=== PATIENT | female | born 1990 | race Caucasian/White ===

== ENCOUNTER → 2018-03-06 10:19 | Outpatient (CLI) | payer OTHER, SELFPAY ==
[2018-03-06 11:43] LABS: Color, Urine Yellow (Yellow); Glucose, Dipstick Normal (Normal); Ketone-Dipstick Negative (Negative); Leukocyte Esterase-Dipstick 100 /ul (Negative); Nitrite-Dipstick Negative (Negative); Occult Blood-Urine Negative /ul (Negative); Protein-Dipstick Negative (Negative); Urine Bilirubin Dipstick Negative (Negative); Urine Clarity Clear (Clear); Urine Urobilinogen Normal (Normal)
[2018-03-06 11:46] LABS: Absolute Lymphocyte Count 1.37 X10^3/ul (0.83-4.51); Basophil# 0.02 X10^3/uL; Basophil% 0.3 % (0-1); Eosinophil# 0.07 X10^3/uL; Eosinophils% 0.9 % (0-5); Hemoglobin 13.3 g/dl (12.0-15.0); Lymphocyte # 1.37 X10^3/ul (4.0); Lymphocyte % 17.4 % (19-41); Mean Corp Hgb Conc 34.1 g/gl (32-36); Mean Corpuscular Hgb 31.1 pg (27.0-32.0); Mean Corpuscular Volume 91.1 fL (81-99); Mean Platelet Vol. 9.6 fl (6.2-12.0); Monocyte# 0.45 X10^3/uL; Monocyte% 5.7 % (0-10); Neutrophil # 5.97 X10^3/uL (2.7-7.7); Neutrophil % 75.6 % (47-70); Platelet Count 266 K/mm3 (150-450); RBC Distribution Width CV 12.5 % (11.6-14.6); RBC Distribution Width SD 40.9 fl (35.1-43.9); Red Blood Count 4.28 M/mm3 (4.2-5.4); White Blood Count 7.9 K/mm3 (4.4-11.0)
[2018-03-06 11:48] LABS: POSITIVE COUNT NO; POSITIVE DIFFERENTIAL NO; POSITIVE MORPHOLOGY NO
[2018-03-06 12:03] LABS: Amphetamine Urine VISTA NEGATIVE (<1000 ng/mL); Barbiturate Urine VISTA NEGATIVE (< 200 ng/mL); Benzodiazepine Urine VISTA NEGATIVE (< 200 ng/mL); Cocaine Urine VISTA NEGATIVE (< 300 ng/mL); Ecstacy Urine VISTA NEGATIVE (< 500 ng/mL); Methadone Urine VISTA NEGATIVE (< 300 ng/mL); PCP Urine VISTA NEGATIVE (< 25 ng/mL); THC Urine VISTA NEGATIVE (< 50 ng/mL); Vista UDS pH Range 6
[2018-03-06 12:39] LABS: HIV - WCH Non-Reactive (Nonreactive); Rubella IgG 48.2 IU/mL; Vitamin D,25 Hydroxy 27.7 ng/mL (29.95-100.01)
[2018-03-06 14:52] LABS: Chlamydia Trachomatis by PCR Negative (Negative); Neisserai gonorrhoeae by PCR Negative (Negative); Probe Check PASS; Sample Adequacy Control PASS; Specimen Processing Control PASS
[2018-03-07 13:40] LABS: HEPATITIS B SURFACE AG Negative (Negative); Hep C Antibodies <0.1 s/co ratio (0.0-0.9)
[2018-03-13 02:33] LABS: Prenatal RPR NONREACTIVE (NONREACTIVE)
== END ==
PROVIDERS: Visit Provider Obstetrics & Gynecology
DX: Z32.01 Encounter for pregnancy test, result positive (principal)
CPT/HCPCS: 36415; 80307; 81002; 82306; 83036; 84443; 85025; 86703; 86762; 86803; 87340; 87491; 87591

== ENCOUNTER 2018-03-08 19:56 | Emergency (ER) | payer OTHER, SELFPAY ==
[2018-03-08 19:58] VITALS: BP 93/69; PULSE 109; RESP 22; TEMP 36.4; O2SAT 98; BMI 28.1
[2018-03-08] MEDS: 0.9% Normal Saline 1,000 ML 1000 ML IV (20:35)
[2018-03-08] MEDS: proMETHazine 25 MG/ML Syringe 12.5 MG IV (20:35)
[2018-03-08 20:46] LABS: Red Blood Cells-Urine 0 SEEN /hpf (0-5)
[2018-03-08 20:55] LABS: Absolute Lymphocyte Count 0.52 X10^3/ul (0.83-4.51); Absolute Neutrophil Count 13.7 X10^3/uL (2.0-7.7); Basophil# 0.01 X10^3/uL; Basophil% 0.1 % (0-1); Eosinophil# 0.01 X10^3/uL; Eosinophils% 0.1 % (0-5); Hematocrit 41.5 % (37-47); Hemoglobin 13.9 g/dl (12.0-15.0); Lymphocyte # 0.52 X10^3/ul (4.0); Lymphocyte % 3.6 % (19-41); Mean Corp Hgb Conc 33.5 g/gl (32-36); Mean Corpuscular Hgb 30.3 pg (27.0-32.0); Mean Corpuscular Volume 90.4 fL (81-99); Mean Platelet Vol. 9.5 fl (6.2-12.0); Monocyte# 0.37 X10^3/uL; Monocyte% 2.5 % (0-10); Neutrophil # 13.67 X10^3/uL (2.7-7.7); Neutrophil % 93.5 % (47-70); Platelet Count 230 K/mm3 (150-450); RBC Distribution Width CV 12.7 % (11.6-14.6); RBC Distribution Width SD 41.2 fl (35.1-43.9); Red Blood Count 4.59 M/mm3 (4.2-5.4); White Blood Count 14.6 K/mm3 (4.4-11.0)
[2018-03-08 20:58] LABS: Color, Urine Yellow (Yellow); Glucose, Dipstick Normal (Normal); Leukocyte Esterase-Dipstick 100 /ul (Negative); Nitrite-Dipstick Negative (Negative); Occult Blood-Urine 10 /ul (Negative); Protein-Dipstick 30 mg/dl (Negative); Specific Gravity, Urine 1.025 (1.002-1.030); Urine Bilirubin Dipstick 1 mg/dL (Negative); Urine Clarity Cloudy (Clear); Urine Urobilinogen 1 mg/dl (Normal)
[2018-03-08 20:59] LABS: Ketone-Dipstick 150 mg/dl (Negative)
[2018-03-08 21:01] LABS: Differential Indicated SCAN CRITERIA MET; POSITIVE COUNT NO; POSITIVE DIFFERENTIAL YES; POSITIVE MORPHOLOGY NO
[2018-03-08 21:05] LABS: Anion Gap 8 (5-15); BUN 15 mg/dL (7-18); BUN/Creat Ratio 22.6 RATIO (10-20); Calcium,Total 9.1 mg/dL (8.5-10.1); Chloride 103 mmol/L (98-107); Creatinine, Serum 0.66 mg/dL (0.55-1.02); EST Glomerular Filtration Rate 114 mL/min (>60); Est Glom Filt Rate - Afr Amer 138 mL/min (>60); Estimated Creatinine Clearance 116.23 ml/min; Glucose 101 mg/dL (74-106); Sodium Level 136 mmol/L (136-145)
[2018-03-08 21:14] LABS: Squamous Epithelial Cells - UA 0-5 SEEN /hpf (5-10); White Blood Cells 0-5 SEEN /hpf (0-5)
[2018-03-08 21:15] LABS: Bacteria 1+ /hpf (None Seen); Mucous, Urine 2+ /hpf (<or=2+)
[2018-03-08 21:20] LABS: Differential Comment SCANNED
[2018-03-08] MEDS: 0.9% Normal Saline 1,000 ML 150 ML IV (21:24)
[2018-03-08 21:25] VITALS: BP 91/46; PULSE 77; RESP 16; O2SAT 100
[2018-03-08] MEDS: Ondansetron 4 MG/2 ML Vial IV ×2 (21:40→23:56)
--- NOTE | 2018-03-08 22:50 | ED.DCSUM_ITS ---
- ER Visit Summary Date of Service: 03/08/18 Chief Complaint: Nausea and vomiting History of Present Illness: The patient is a 27 F who is currently 6 weeks . Patient has had nausea, vomiting, diarrhea since late last night. Her son is ill with stomach flu as well. Patient denies fever. She denies any cramping or bleeding. Physical Examination: Blood pressure is 93/69, temperature 97.6, heart rate 109 , respiratory rate 22, pulse ox 98% on room air. Patient sitting upright in bed no acute distress. She is nontoxic appearing. Head neck examination is unremarkable. Heart is slightly tachycardic and regular. Lung sounds are clear. Abdomen is soft and nontender. Test Results: CBC was a white count of 14.6 with 93% neutrophils. Chemistry studies are normal. Urinalysis is significant for 150 ketones. Emergency Department Course and Treatment: Patient was initially given Phenergan and a liter of IV fluids. Nursing staff states that her nausea was starting to return. Blood pressure was still in the 90s systolic. She is given additional 500 cc of fluids and Zofran. Repeat evaluation at this time she is sleeping comfortably. Patient was given ice chips and was able to keep this down. She apparently was given mandrin oranges and after eating this felt worse epigastric pain and nausea. She was given a dose of Pepcid and Zofran. At this time she is sleeping comfortably. She will be discharged to home. She will be given a home pack of Phenergan with a prescription for Phenergan. She is to follow-up with her [employer], Dr. Kolton Frederick. Treatment Plan: [] Disposition: Discharge Impression: 1. Gastroenteritis 2. First trimester This note was generated with [employer] software. It may contain incorrect words, spelling, and punctuation that were not noted in review of the chart prior to signing ED Disposition - Plan for ED Patient: Disposition: Home or Assisted Living Chief Complaint: Nausea/Vomiting Instructions: ED Nausea Vomiting Prescriptions: proMETHazine tablet [Phenergan] 0.5 - 1 tab PO Q6H PRN PRN #10 tablet PRN Reason: Nausea Referrals: Teresa Tuttle MD [Primary Care Provider] - Karma Rocha MD [STAFF PHYSICIAN] -
--- NOTE | 2018-03-08 23:06 | ED.DEP ---
ED Disposition - Plan for ED Patient: Disposition: Home or Assisted Living Chief Complaint: Nausea/Vomiting Instructions: ED Nausea Vomiting Prescriptions: proMETHazine tablet [Phenergan] 0.5 - 1 tab PO Q6H PRN PRN #10 tablet PRN Reason: Nausea Referrals: Teresa Tuttle MD [Primary Care Provider] - Karma Rocha MD [STAFF PHYSICIAN] -
[2018-03-09] MEDS: proMETHazine 25 MG Tablet PO (00:49)
[2018-03-09 00:52] VITALS: BP 86/68; PULSE 67; RESP 14; O2SAT 95
== END 2018-03-09 00:52 | disposition home or self-care (01) ==
PROVIDERS: Emergency Provider Emergency Medicine; Family Provider Family Medicine; PCP Family Medicine
DX: O98.511 Other viral diseases complicating pregnancy, first trimester (principal); K52.9 Noninfective gastroenteritis and colitis, unspecified; Z3A.01 Less than 8 weeks gestation of pregnancy
CPT/HCPCS: 80048; 81001; 85025; 96361; 96365; 96374; 96375; 96376; 99283; J7030; J7040; A4216; J2405; J3490

== ENCOUNTER → 2018-08-05 13:08 | Outpatient (CLI) | payer OTHER, SELFPAY ==
[2018-08-05 15:43] LABS: Hematocrit 31.3 % (37-47); Hemoglobin 10.2 g/dl (12.0-15.0); Mean Corp Hgb Conc 32.6 g/gl (32-36); Mean Corpuscular Hgb 30.2 pg (27.0-32.0); Mean Corpuscular Volume 92.6 fL (81-99); Platelet Count 250 K/mm3 (150-450); RBC Distribution Width SD 45.7 fl (35.1-43.9); Red Blood Count 3.38 M/mm3 (4.2-5.4); White Blood Count 15.9 K/mm3 (4.4-11.0)
[2018-08-05 15:57] LABS: Scan Indicated on CBC? Y/N NO
[2018-08-05 16:13] LABS: Glucose Challenge Gest 1H 50g 153 mg/dL (70-140)
[2018-08-06 15:13] LABS: Ferritin 4 ng/mL (8-252); Iron 43 ug/dL (50-170); Iron Binding Capacity,Total 511 ug/dL (250-450); PERCENT IRON SATURATION 8.4 % (15.0-55.0)
== END ==
PROVIDERS: Visit Provider Obstetrics & Gynecology
DX: Z34.83 Encounter for supervision of other normal pregnancy, third trimester (principal)
CPT/HCPCS: 36415; 82728; 82950; 83540; 83550; 85027

== ENCOUNTER → 2018-08-12 09:45 | Outpatient (CLI) | payer OTHER, SELFPAY ==
[2018-08-12 11:05] LABS: Glucose GTT-Gestation. Fasting 78 mg/dL (<105)
[2018-08-12 11:29] LABS: Glucose GTT-Gestational 1 Hr 158 mg/dL (<190)
[2018-08-12 12:32] LABS: Glucose GTT-Gestational 2 Hr 177 mg/dL (<165)
[2018-08-12 13:46] LABS: Glucose GTT-Gestational 3 Hr 105 L (<145)
== END ==
PROVIDERS: Family Provider Family Medicine; PCP Family Medicine; Visit Provider Obstetrics & Gynecology
DX: Z34.83 Encounter for supervision of other normal pregnancy, third trimester (principal); O24.912 Unspecified diabetes mellitus in pregnancy, second trimester; Z3A.00 Weeks of gestation of pregnancy not specified
CPT/HCPCS: 36415; 82951; 82952

== ENCOUNTER 2018-08-14 14:03 | Outpatient (CLI) | payer OTHER, SELFPAY ==
[2018-08-14 16:19] VITALS: BMI 32.3
--- NOTE | 2018-08-14 18:15 | OB.TRI.NOTE ---
History of Present Illness Date of Service: 08/14/18 Was patient seen by the physician?: Yes Reason For Visit: spotting Date of Service: 08/14/18 Final ESTUARDO: 10/30/18 Final ESTUARDO Source: US <20 weeks Gestational age: 29 Weeks and 0 Days History of Present Illness: 27yo with dichorionic diamnionic twin gestation presents with c/o vaginal bleeding. She called office earlier today and was advised to go to L&D. Two days ago she had a near fall after sliding down muddy slope while walking. She denies any fall or trauma and was able to regain her balance and remain upright, but she feels she might have pulled a muscle. She was seen in the office the following day for US which was reassuring. Today she noted spotting when wiping after toileting, it was pink to red in color and the size of a pea. Denies contractions, leaking of fluid, vaginal bleeding, constipation, diarrhea, recent intercourse, vaginal itching, burning or abnormal discharge. Fetuses are active. Allergies Penicillins Allergy (Verified 08/14/18 16:21) Rash Physical Exam Vitals: avss General: Alert, Oriented x3, Cooperative, No apparent distress HEENT: Atraumatic, Normocephalic Lungs: Normal air movement Abdomen: Bowel Sounds Present, Non Tender, Non-Distended, Gravid Neurological: Neuro grossly intact, Motor Exam 5/5 strength throughout CARTON MAKER: Normal external genitalia Cervix Dilation (cm): 0 Station: -3 Effacement (%): 0 NST - FHR Rate Baby A Baseline: 140 Variability:: Moderate Accelerations:: 15 x 15 Decelerations:: None NST Reactive:: Yes FHR Category:: Category I Uterine Activity:: 0-3/10 min, irritability - FHR Rate Baby B Baseline: 140 Variability:: Moderate Accelerations:: 15 x 15 Decelerations:: None NST Reactive:: Yes FHR Category:: Category I Impression/Plan 27yo with di-di twin gestation and spotting complicating , third trimester -No bleeding or abnormalities noted on speculum exam -Cervix closed and contractions irregular - no labor -Will d/c patient home -Pt reassured -Si/sx labor, ROM reviewed
--- NOTE | 2018-08-14 18:19 | OB.TRI.HP_ITS ---
History of Present Illness Date of Service: 08/14/18 Was patient seen by the physician?: Yes Reason For Visit: spotting Date of Service: 08/14/18 Final ESTUARDO: 10/30/18 Final ESTUARDO Source: US <20 weeks Gestational age: 29 Weeks and 0 Days History of Present Illness: 27yo with dichorionic diamnionic twin gestation presents with c/o vaginal bleeding. She called office earlier today and was advised to go to L&D. Two days ago she had a near fall after sliding down muddy slope while walking. She denies any fall or trauma and was able to regain her balance and remain upright, but she feels she might have pulled a muscle. She was seen in the office the following day for US which was reassuring. Today she noted spotting when wiping after toileting, it was pink to red in color and the size of a pea. Denies contractions, leaking of fluid, vaginal bleeding, constipation, diarrhea, recent intercourse, vaginal itching, burning or abnormal discharge. Fetuses are active . Allergies Penicillins Allergy (Verified 08/14/18 16:21) Rash Physical Exam Vitals: avss General: Alert, Oriented x3, Cooperative, No apparent distress HEENT: Atraumatic, Normocephalic Lungs: Normal air movement Abdomen: Bowel Sounds Present, Non Tender, Non-Distended, Gravid Neurological: Neuro grossly intact, Motor Exam 5/5 strength throughout COMPUTED TOMOGRAPHY TECHNICIAN: Normal external genitalia Cervix Dilation (cm): 0 Station: -3 Effacement (%): 0 NST - FHR Rate Baby A Baseline: 140 Variability:: Moderate Accelerations:: 15 x 15 Decelerations:: None NST Reactive:: Yes FHR Category:: Category I Uterine Activity:: 0-3/10 min, irritability - FHR Rate Baby B Baseline: 140 Variability:: Moderate Accelerations:: 15 x 15 Decelerations:: None NST Reactive:: Yes FHR Category:: Category I Impression/Plan 27yo with di-di twin gestation and spotting complicating , third trimester -No bleeding or abnormalities noted on speculum exam -Cervix closed and contractions irregular - no labor -Will d/c patient home -Pt reassured -Si/sx labor, ROM reviewed
== END 2018-08-14 18:03 | disposition home or self-care (01) ==
LOC: WPOUT 14:05 → WP 14:05
PROVIDERS: Family Provider Family Medicine; PCP Family Medicine; Referring Provider Obstetrics & Gynecology; Visit Provider Obstetrics & Gynecology
DX: O30.043 Twin pregnancy, dichorionic/diamniotic, third trimester (principal); O26.853 Spotting complicating pregnancy, third trimester; Z3A.29 29 weeks gestation of pregnancy
CPT/HCPCS: 59025; 59050; 99218; G0378

== ENCOUNTER 2018-09-01 07:55 | Outpatient (CLI) | payer OTHER, SELFPAY ==
[2018-09-01 08:09] VITALS: BMI 32.7
--- NOTE | 2018-09-02 08:02 | OB.TRI.NOTE ---
History of Present Illness Date of Service: 09/01/18 Was patient seen by the physician?: No Reason For Visit: NST Date of Service: 09/01/18 Final ESTUARDO: 10/30/18 Final ESTUARDO Source: US <20 weeks Gestational age: 31 Weeks and 4 Days History of Present Illness: 27 yo female at 31 4/7 wk with twin IUP for scheduled twin NST No complaints reported by nurse. Allergies Penicillins Allergy (Verified 08/14/18 16:21) Rash NST - FHR Rate Baby A Baseline: 140s avg variability accels to 165-170 Variability:: Moderate Accelerations:: 15 x 15 Decelerations:: Early - to 100 less than 10 sec. NST Reactive:: Yes, Appropriate for gestational age FHR Category:: Category I Uterine Activity:: no regular UCs. Some irritability - FHR Rate Baby B Baseline: 140-150 with accels to 170s Variability:: Moderate Accelerations:: None Decelerations:: Early - to 130 less than 10 - 20 sec NST Reactive:: Yes, Appropriate for gestational age FHR Category:: Category I Uterine Activity:: no regular UCs Impression/Plan 31 4/7 wk twin IUP Reactive NST Home Keep scheduled appts in ofc, serial sonos NSTs until delivery
--- NOTE | 2018-09-02 08:14 | OB.TRI.HP_ITS ---
History of Present Illness Date of Service: 09/01/18 Was patient seen by the physician?: Yes Reason For Visit: NST Date of Service: 09/01/18 Final ESTUARDO: 10/30/18 Final ESTUARDO Source: US <20 weeks Gestational age: 31 Weeks and 4 Days History of Present Illness: 27 yo female with twin IUP s/p fall at home onto buttocks. Hit L thigh on edge of furniture with has an abrasion and bruise. states did the splits and is painful. Very concerned about babies and possible labor. Feeling some pain. Did NOT hit her abdomen. Both babies are BREECH and plans primary C/S delivery at 38 wks. Allergies Penicillins Allergy (Verified 08/14/18 16:21) Rash Review of Systems Gastrointestinal: Reports: Abdominal Pain - concerned about contractions. Gynecological: Denies: Vaginal bleeding Physical Exam General: Alert, Oriented x3, Cooperative, No apparent distress HEENT: Atraumatic, EOMI Abdomen: Soft, Non Tender, Gravid Neurological: Cranial nerves II-XII grossly intact SURVEY RESEARCH PROFESSOR: Normal external genitalia - no blood noted. Cervix Dilation (cm): 0 Station: -3 Effacement (%): 0 NST - FHR Rate Baby A Variability:: Moderate Accelerations:: 15 x 15 Decelerations:: Variable NST Reactive:: Yes, Appropriate for gestational age FHR Category:: Category I Uterine Activity:: rare UC. Uterine irritability noted. - FHR Rate Baby B Variability:: Moderate Accelerations:: 15 x 15 Decelerations:: Variable NST Reactive:: Yes, Appropriate for gestational age FHR Category:: Category I Uterine Activity:: As above twin A report. Impression/Plan 31 4/7 wk twin IUP Br-Br presentation. ELPIDIO wnl x two and concordant growth with last sono (within the week) No SROM No Vaginal bleeding S/P fall onto buttocks , no abdominal trauma NST reactive both Uterine irritability. IV hydration and single dose of procardia 10 mg po given for CC of cramping. Tylenol 1000 mg PO x one given FALSE LABOR, cramping s/p fall and no abdominal trauma. Home to rest after monitoring. Keep next appts for NST, ofc visit and sono as scheduled. Return if inc s/sx of labor. Advised Tylenol, rest, warm bath/shower as musculoskeletal pain may worsen after fall. (similar to whiplash)
== END 2018-09-01 08:35 | disposition home or self-care (01) ==
LOC: WPOUT 08:02 → WP 08:03
PROVIDERS: Family Provider Family Medicine; PCP Family Medicine; Referring Provider Obstetrics & Gynecology; Visit Provider Obstetrics & Gynecology
DX: O47.03 False labor before 37 completed weeks of gestation, third trimester (principal); O32.1XX0 Maternal care for breech presentation, not applicable or unspecified; O30.003 Twin pregnancy, unspecified number of placenta and unspecified number of amniotic sacs, third trimester; O76 Abnormality in fetal heart rate and rhythm complicating labor and delivery; O9A.213 Injury, poisoning and certain other consequences of external causes complicating pregnancy, third trimester; Z3A.31 31 weeks gestation of pregnancy; S70.312A Abrasion, left thigh, initial encounter; W19.XXXA Unspecified fall, initial encounter; Y93.9 Activity, unspecified; Y92.009 Unspecified place in unspecified non-institutional (private) residence as the place of occurrence of the external cause
CPT/HCPCS: 59025; 59050; 99218; G0378

== ENCOUNTER 2018-09-04 07:50 | Outpatient (CLI) | payer OTHER, SELFPAY ==
[2018-09-04 08:06] VITALS: BMI 32.8
--- NOTE | 2018-09-04 15:58 | OB.TRI.NOTE ---
History of Present Illness Was patient seen by the physician?: No Reason For Visit: NST Date of Service: 09/04/18 Final ESTUARDO: 10/28/18 Final ESTUARDO Source: US <20 weeks Gestational age: 32 Weeks and 2 Days History of Present Illness: 32+ week intrauterine presents for routine nonstress test for twins. Allergies Penicillins Allergy (Verified 09/04/18 08:08) Rash NST - FHR Rate Baby A NST Reactive:: Yes FHR Category:: Category I - FHR Rate Baby B NST Reactive:: Yes FHR Category:: Category I Impression/Plan 32+ week intrauterine with twin gestation for routine nonstress testing. Reactive x2. Continue twice weekly nonstress testing.
== END 2018-09-04 09:35 | disposition home or self-care (01) ==
LOC: WPOUT 07:56 → WP 07:58
PROVIDERS: Family Provider Family Medicine; PCP Family Medicine; Referring Provider Obstetrics & Gynecology; Visit Provider Obstetrics & Gynecology
DX: O30.003 Twin pregnancy, unspecified number of placenta and unspecified number of amniotic sacs, third trimester (principal); Z3A.32 32 weeks gestation of pregnancy
CPT/HCPCS: 59025; 59050; 99218; G0378

== ENCOUNTER 2018-09-07 16:40 | Outpatient (CLI) | payer OTHER, SELFPAY ==
[2018-09-07 17:55] VITALS: BMI 33.0
[2018-09-07] MEDS: Lactated Ringers 500 ML 999 ML IV (18:57)
[2018-09-07] MEDS: Betamethasone/Betamethasone 30 MG/5 ML Vial 12 MG IM (18:58)
[2018-09-07 19:04] LABS: Fetal Fibronectin Negative
--- NOTE | 2018-09-07 21:54 | OB.TRI.NOTE ---
History of Present Illness Was patient seen by the physician?: Yes Reason For Visit: NST Date of Service: 09/07/18 Final ESTUARDO: 10/27/18 Final ESTUARDO Source: US <20 weeks Gestational age: 32 Weeks and 6 Days History of Present Illness: 32+ week intrauterine with twin gestation presents for routine nonstress testing. Contractions noted on monitor about every 5 minutes. Patient indicates that contractions have been increasing after presenting to labor and delivery and she indicates that they are actually pretty strong. Good movement noted. Denies any bleeding or discharge. Allergies Penicillins Allergy (Verified 09/04/18 08:08) Rash Laboratory Studies: Laboratory Tests 09/07/18 09/07/18 Range/Units 18:45 18:05 Fibronectin Negative Blood Type A POSITIVE Antibody Screen NEGATIVE NST - FHR Rate Baby A FHR Category:: Category I Uterine Activity:: Contractions noted initially about every 5-7 minutes. After IV fluids and monitoring contractions diminished to about 1 every 10-15 minutes and much milder per the patient. - FHR Rate Baby B FHR Category:: Category I Impression/Plan 32+ week intrauterine with twin gestation who presented for routine nonstress test and had transient contractions noted. fibrin was negative. Cervix is 3/50/-2 and remained unchanged over multiple hours of monitoring. Contractions subsided as did strength and frequency over several hours and with IV hydration. However, given that the patient was dilated 3 cm it was decided to administer Celestone. Given no change, we will release to home with routine instructions. Patient lives nearby and was instructed to follow-up tomorrow for her second dose of Celestone and to follow-up in the office on Friday for an appointment. She knows to return if her contractions increase in frequency or intensity.
== END 2018-09-07 22:10 | disposition home or self-care (01) ==
LOC: WPOUT 16:46 → WP 16:47
PROVIDERS: Family Provider Family Medicine; PCP Family Medicine; Referring Provider Obstetrics & Gynecology; Visit Provider Obstetrics & Gynecology
DX: O60.03 Preterm labor without delivery, third trimester (principal); O30.003 Twin pregnancy, unspecified number of placenta and unspecified number of amniotic sacs, third trimester; Z3A.32 32 weeks gestation of pregnancy
CPT/HCPCS: 96360; 96361 ×3; 59025; 59050; 82731; 86850; 86900; 96372; 99218; J7120; G0378; J0702

== ENCOUNTER 2018-09-08 18:50 | Outpatient (CLI) | payer OTHER, SELFPAY ==
[2018-09-08] MEDS: Betamethasone/Betamethasone 30 MG/5 ML Vial 12 MG IM (19:25)
--- NOTE | 2018-09-10 09:22 | OB.TRI.NOTE ---
History of Present Illness Date of Service: 09/09/18 Was patient seen by the physician?: No Reason For Visit: INJECTION Date of Service: 09/09/18 Final ESTUARDO: 10/27/18 Final ESTUARDO Source: US <20 weeks Gestational age: 33 Weeks and 2 Days History of Present Illness: 33+ week intrauterine with twin gestation presents for second dose of Celestone. She had been in the labor and delivery suite the evening before with transient contractions which subsided. Cervix was thought to be 3 cm and given this was decided to proceed with steroid administration. Contractions during the evening had slowed down and were noted to be minimal at the time of this presentation. Allergies Penicillins Allergy (Verified 09/04/18 08:08) Rash NST - FHR Rate Baby A NST Reactive:: Yes FHR Category:: Category I Uterine Activity:: Minimal uterine contractions noted. Impression/Plan 33+ week intrauterine with twin gestation for her second dose of Celestone. This was given. Reactive heart tones were noted. Continuing routine follow-up and twice weekly nonstress testing. Patient knows to return if contractions increase markedly in severity as well as frequency.
== END 2018-09-08 19:50 | disposition home or self-care (01) ==
LOC: WPOUT 18:53 → WP 19:03
PROVIDERS: Family Provider Family Medicine; PCP Family Medicine; Referring Provider Obstetrics & Gynecology; Visit Provider Obstetrics & Gynecology
DX: O30.003 Twin pregnancy, unspecified number of placenta and unspecified number of amniotic sacs, third trimester (principal); Z3A.33 33 weeks gestation of pregnancy
CPT/HCPCS: 59025; 59050; 96372; 99218; G0378; J0702

== ENCOUNTER 2018-09-10 17:20 | Outpatient (CLI) | payer OTHER, SELFPAY ==
[2018-09-10 17:42] VITALS: BMI 33.4
--- NOTE | 2018-09-11 19:02 | OB.TRI.NOTE ---
- Problem List (1) Dichorionic diamniotic twin in third trimester Status: Acute History of Present Illness Date of Service: 09/10/18 Was patient seen by the physician?: No Reason For Visit: NST Final ESTUARDO: 10/28/18 Final ESTUARDO Source: US <20 weeks Gestational age: 33 Weeks and 1 Days History of Present Illness: 27yo @ 33 2/7wga with dichorionic diamnionic twin gestation presenting for scheduled NST. Allergies Penicillins Allergy (Verified 09/04/18 08:08) Rash Physical Exam Vitals: avss NST - FHR Rate Baby A Baseline: 140 Variability:: Moderate Accelerations:: 15 x 15 Decelerations:: None NST Reactive:: Yes FHR Category:: Category I Uterine Activity:: 0/10 - FHR Rate Baby B Baseline: 140 Variability:: Moderate Accelerations:: 15 x 15 Decelerations:: None NST Reactive:: Yes FHR Category:: Category I Uterine Activity:: 0/10 Impression/Plan 33 1/7wga with dichorionic diamnionic twins -Reactive NST -d/c home
== END 2018-09-10 18:50 | disposition home or self-care (01) ==
LOC: WPOUT 17:22 → WP 17:23
PROVIDERS: Family Provider Family Medicine; PCP Family Medicine; Referring Provider Obstetrics & Gynecology; Visit Provider Obstetrics & Gynecology
DX: O30.043 Twin pregnancy, dichorionic/diamniotic, third trimester (principal); Z3A.33 33 weeks gestation of pregnancy
CPT/HCPCS: 59025; 59050; 99218; G0378

== ENCOUNTER 2018-09-14 17:55 | Outpatient (CLI) | payer OTHER, SELFPAY ==
[2018-09-14 18:11] VITALS: BMI 33.0
--- NOTE | 2018-09-16 09:28 | OB.TRI.NOTE ---
History of Present Illness Was patient seen by the physician?: No Reason For Visit: NST Date of Service: 09/14/18 Final ESTUARDO: 10/28/18 Final ESTUARDO Source: US <20 weeks Gestational age: 33 Weeks and 5 Days Allergies Penicillins Allergy (Verified 09/04/18 08:08) Rash NST - FHR Rate Baby A NST Reactive:: Yes FHR Category:: Category I - FHR Rate Baby B NST Reactive:: Yes FHR Category:: Category I Impression/Plan 33+ week twin gestation for routine nonstress test. Reactive x2. Continue routine follow-up and care. Continue twice weekly nonstress testing.
== END 2018-09-14 18:40 | disposition home or self-care (01) ==
LOC: WPOUT 18:04 → WP 18:05
PROVIDERS: Family Provider Family Medicine; PCP Family Medicine; Visit Provider Obstetrics & Gynecology
DX: O30.003 Twin pregnancy, unspecified number of placenta and unspecified number of amniotic sacs, third trimester (principal); Z3A.33 33 weeks gestation of pregnancy
CPT/HCPCS: 59025

== ENCOUNTER 2018-09-17 16:55 | Outpatient (CLI) | payer OTHER, SELFPAY ==
[2018-09-17 17:11] VITALS: BMI 33.3
--- NOTE | 2018-09-17 23:55 | OB.TRI.NOTE ---
- Problem List (1) 34 weeks gestation of Status: Acute History of Present Illness Date of Service: 09/17/18 Was patient seen by the physician?: Yes Reason For Visit: NST Final ESTUARDO: 10/28/18 Final ESTUARDO Source: US <20 weeks Gestational age: 34 Weeks and 1 Days History of Present Illness: 27yo @ 34 1/7wga with dichorionic diamnionic twin gestation for scheduled NST Allergies Penicillins Allergy (Verified 09/04/18 08:08) Rash Physical Exam Vitals: avss NST - FHR Rate Baby A Baseline: 150 Variability:: Moderate Accelerations:: 15 x 15 Decelerations:: Variable NST Reactive:: Yes FHR Category:: Category I Uterine Activity:: irritability - FHR Rate Baby B Baseline: 135 Variability:: Moderate Accelerations:: 15 x 15 Decelerations:: None NST Reactive:: Yes FHR Category:: Category I Impression/Plan Dichorionic diamnionic twin gestation Reactive NST x 2 d/c home
== END 2018-09-17 17:50 | disposition home or self-care (01) ==
LOC: WPOUT 17:05 → WP 17:05
PROVIDERS: Family Provider Family Medicine; PCP Family Medicine; Referring Provider Obstetrics & Gynecology; Visit Provider Obstetrics & Gynecology
DX: O30.043 Twin pregnancy, dichorionic/diamniotic, third trimester (principal); O76 Abnormality in fetal heart rate and rhythm complicating labor and delivery; Z3A.34 34 weeks gestation of pregnancy
CPT/HCPCS: 59025; 59050; 99218; G0378

== ENCOUNTER 2018-09-21 16:30 | Outpatient (CLI) | payer OTHER, SELFPAY ==
[2018-09-21 16:48] VITALS: BMI 33.3
--- NOTE | 2018-09-23 09:15 | OB.TRI.NOTE ---
History of Present Illness Date of Service: 09/21/18 Was patient seen by the physician?: No Reason For Visit: NST Date of Service: 09/21/18 Final ESTUARDO: 10/28/18 Final ESTUARDO Source: US <20 weeks Gestational age: 34 Weeks and 5 Days History of Present Illness: 34+ week twin gestation presents for routine nonstress test. Allergies Penicillins Allergy (Verified 09/04/18 08:08) Rash NST - FHR Rate Baby A NST Reactive:: Yes FHR Category:: Category I - FHR Rate Baby B NST Reactive:: Yes FHR Category:: Category I Impression/Plan 34+ week intrauterine twin gestation for routine nonstress test. Reactive x2. Minimal uterine activity at this point. Continue with routine follow-up and twice weekly nonstress testing.
== END 2018-09-21 18:00 | disposition home or self-care (01) ==
LOC: WPOUT 16:35 → WP 16:35
PROVIDERS: Family Provider Family Medicine; PCP Family Medicine; Referring Provider Obstetrics & Gynecology; Visit Provider Obstetrics & Gynecology
DX: O30.003 Twin pregnancy, unspecified number of placenta and unspecified number of amniotic sacs, third trimester (principal); Z3A.34 34 weeks gestation of pregnancy
CPT/HCPCS: 59025; 59050; 99218; G0378

== ENCOUNTER 2018-09-25 09:10 | Outpatient (CLI) | payer OTHER, SELFPAY ==
[2018-09-25 09:38] VITALS: BMI 33.3
--- NOTE | 2018-09-28 11:19 | OB.TRI.NOTE ---
History of Present Illness Date of Service: 09/25/18 Was patient seen by the physician?: No Reason For Visit: NST Date of Service: 09/25/18 Final ESTUARDO: 10/28/18 Final ESTAURDO Source: US <20 weeks Gestational age: 35 Weeks and 2Days Allergies Penicillins Allergy (Verified 09/25/18 09:40) Rash NST - FHR Rate Baby A NST Reactive:: Yes FHR Category:: Category I - FHR Rate Baby B NST Reactive:: Yes FHR Category:: Category I Uterine Activity:: Occasional mild contraction noted. Impression/Plan 35+ week intrauterine with twins for routine nonstress testing. Reactive x2. Continuing twice weekly nonstress test.
== END 2018-09-25 09:41 | disposition home or self-care (01) ==
LOC: WPOUT 09:21 → WP 09:22
PROVIDERS: Family Provider Family Medicine; PCP Family Medicine; Referring Provider Obstetrics & Gynecology; Visit Provider Obstetrics & Gynecology
DX: O30.003 Twin pregnancy, unspecified number of placenta and unspecified number of amniotic sacs, third trimester (principal); Z3A.35 35 weeks gestation of pregnancy
CPT/HCPCS: 59025; 59050; 99218; G0378

== ENCOUNTER 2018-09-28 17:45 | Outpatient (CLI) | payer OTHER, SELFPAY ==
[2018-09-28 17:53] VITALS: BMI 34.2
--- NOTE | 2018-10-22 09:21 | OB.TRI.NOTE ---
History of Present Illness Date of Service: 09/28/18 Was patient seen by the physician?: No Reason For Visit: NST Date of Service: 09/28/18 Final ESTUARDO: 10/28/18 Final ESTUARDO Source: US <20 weeks Gestational age: 35 Weeks and 5 Days History of Present Illness: 35+ week intrauterine twin gestation for routine nonstress test. Allergies latex Allergy (Verified 10/13/18 13:24) Rash Penicillins Allergy (Verified 10/09/18 10:58) Rash NST - FHR Rate Baby A NST Reactive:: Yes FHR Category:: Category I - FHR Rate Baby B NST Reactive:: Yes FHR Category:: Category I Impression/Plan 35+ week intrauterine with reactive nonstress test x2 for twins. Continue routine care and twice weekly nonstress testing.
== END 2018-09-28 19:45 | disposition home or self-care (01) ==
LOC: WPOUT 17:47 → WP 17:48
PROVIDERS: Family Provider Family Medicine; PCP Family Medicine; Referring Provider Obstetrics & Gynecology; Visit Provider Obstetrics & Gynecology
DX: O30.003 Twin pregnancy, unspecified number of placenta and unspecified number of amniotic sacs, third trimester (principal); Z3A.35 35 weeks gestation of pregnancy
CPT/HCPCS: 59025; 59050; 99218; G0378

== ENCOUNTER → 2018-09-30 11:02 | Outpatient (CLI) | payer OTHER, SELFPAY | PROVIDERS: Visit Provider Obstetrics & Gynecology | DX: Z36.85 Encounter for antenatal screening for Streptococcus B (principal) | CPT/HCPCS: 87081 ==

== ENCOUNTER 2018-09-30 18:35 | Outpatient (CLI) | payer OTHER, SELFPAY ==
[2018-09-30 19:18] VITALS: BMI 34.0
[2018-09-30] MEDS: Lactated Ringers 1,000 ML 999 ML IV ×2 (19:45→21:06)
[2018-09-30 20:55] LABS: Group B Strep DNA By PCR Negative (Negative); Internal Control PASS; Probe Check PASS; Specimen Processing Control PASS
[2018-09-30] MEDS: Terbutaline 1 MG/ML Vial 0.25 MG SC (22:37)
--- NOTE | 2018-10-07 08:34 | OB.TRI.NOTE ---
History of Present Illness Date of Service: 09/30/18 Was patient seen by the physician?: No Reason For Visit: R/O LABOR Date of Service: 09/30/18 Final ESTUARDO: 10/28/18 Final ESTUARDO Source: US <20 weeks Gestational age: 37 Weeks and 0 Days History of Present Illness: Complaints of contractions. No signs of SROM. No bleeding. Allergies Penicillins Allergy (Verified 10/02/18 10:21) Rash Laboratory Studies: Laboratory Tests 09/30/18 Range/Units 19:25 Group B Strep DNA Negative (Negative) Specimen Comment Not Reportable Physical Exam General: Alert, Oriented x3, Cooperative, No apparent distress Cardiovascular: Regular rate, Regular Rhythm Lungs: Clear to auscultation, Normal air movement Abdomen: Soft, Non Tender, Non-Distended, Gravid, - - LGA due to twins Extremities:: No edema Neurological: Neuro grossly intact STORAGE MANAGEMENT ARCHITECT: Normal external genitalia Estimated gestational size: Large for gestational age Presentation: Cephalic Cervix Dilation (cm): 3 Station: -2 Effacement (%): 50 NST - FHR Rate Baby A Baseline: 130 Variability:: Moderate Accelerations:: 15 x 15 Decelerations:: None NST Reactive:: Yes, Appropriate for gestational age FHR Category:: Category I Uterine Activity:: irregular - FHR Rate Baby B Baseline: 130s Variability:: Moderate Accelerations:: 15 x 15 Decelerations:: None NST Reactive:: Yes, Appropriate for gestational age FHR Category:: Category I Uterine Activity:: irregular Impression/Plan Observed over 5 hours with no change in cervical exam. Patient had previously had celestone. FHR tacings reassuring. Given IV hydration and one dose of sq terbutaline. Discharged home with instructions to return if contractions increase in intensity or if has signs of SROM.
--- NOTE | 2018-10-07 08:39 | OB.TRI.HP_ITS ---
History of Present Illness Date of Service: 09/30/18 Was patient seen by the physician?: No Reason For Visit: R/O LABOR Date of Service: 09/30/18 Final ESTUARDO: 10/28/18 Final ESTUARDO Source: US <20 weeks Gestational age: 37 Weeks and 0 Days History of Present Illness: Complaints of contractions. No signs of SROM. No bleeding. Allergies Penicillins Allergy (Verified 10/02/18 10:21) Rash Laboratory Studies: Laboratory Tests 09/30/18 Range/Units 19:25 Group B Strep DNA Negative (Negative) Specimen Comment Not Reportable Physical Exam General: Alert, Oriented x3, Cooperative, No apparent distress Cardiovascular: Regular rate, Regular Rhythm Lungs: Clear to auscultation, Normal air movement Abdomen: Soft, Non Tender, Non-Distended, Gravid, - - LGA due to twins Extremities:: No edema Neurological: Neuro grossly intact AUTOMATIC LATHE SETTER: Normal external genitalia Estimated gestational size: Large for gestational age Presentation: Cephalic Cervix Dilation (cm): 3 Station: -2 Effacement (%): 50 NST - FHR Rate Baby A Baseline: 130 Variability:: Moderate Accelerations:: 15 x 15 Decelerations:: None NST Reactive:: Yes, Appropriate for gestational age FHR Category:: Category I Uterine Activity:: irregular - FHR Rate Baby B Baseline: 130s Variability:: Moderate Accelerations:: 15 x 15 Decelerations:: None NST Reactive:: Yes, Appropriate for gestational age FHR Category:: Category I Uterine Activity:: irregular Impression/Plan Observed over 5 hours with no change in cervical exam. Patient had previously had celestone. FHR tacings reassuring. Given IV hydration and one dose of sq terbutaline. Discharged home with instructions to return if contractions increase in intensity or if has signs of SROM.
== END 2018-10-01 00:05 | disposition home or self-care (01) ==
LOC: WPOUT 19:15 → WP 10-01 00:28
PROVIDERS: Visit Provider Obstetrics & Gynecology
DX: O62.9 Abnormality of forces of labor, unspecified (principal); O30.003 Twin pregnancy, unspecified number of placenta and unspecified number of amniotic sacs, third trimester; Z3A.37 37 weeks gestation of pregnancy
CPT/HCPCS: 96360; 96361 ×3; 59025; 59050; 87081; 87653; 96372; 99218; J7120; G0378

== ENCOUNTER 2018-10-02 09:50 | Outpatient (CLI) | payer OTHER, SELFPAY ==
[2018-10-02 10:12] VITALS: BMI 34.0
--- NOTE | 2018-10-02 19:10 | OB.TRI.NOTE ---
- Problem List (1) 36 weeks gestation of Status: Acute (2) Dichorionic diamniotic twin gestation Status: Acute Qualifiers: Trimester: third trimester Qualified Code(s): O30.043 - Twin , dichorionic/diamniotic, third trimester History of Present Illness Date of Service: 10/02/18 Was patient seen by the physician?: No Reason For Visit: NST Date of Service: 10/02/18 Final ESTUARDO: 10/28/18 Final ESTUARDO Source: US <20 weeks Gestational age: 36 Weeks and 2 Days History of Present Illness: 27yo @ 36 2/7wga with dichorionic diamnionic twin gestation for scheduled NST Allergies Penicillins Allergy (Verified 10/02/18 10:21) Rash NST - FHR Rate Baby A Baseline: 135 Variability:: Moderate Accelerations:: 15 x 15 Decelerations:: None NST Reactive:: Yes FHR Category:: Category I Uterine Activity:: irritability - FHR Rate Baby B Baseline: 140 Variability:: Moderate Accelerations:: 15 x 15 Decelerations:: None NST Reactive:: Yes FHR Category:: Category I Uterine Activity:: irritability Impression/Plan Reactive NST x 2 d/c home
== END 2018-10-02 10:35 | disposition home or self-care (01) ==
LOC: WPOUT 09:56 → WP 09:57
PROVIDERS: Referring Provider Obstetrics & Gynecology; Visit Provider Obstetrics & Gynecology
DX: O30.043 Twin pregnancy, dichorionic/diamniotic, third trimester (principal); Z3A.36 36 weeks gestation of pregnancy
CPT/HCPCS: 59025; 59050; 99218; G0378

== ENCOUNTER 2018-10-05 11:07 | Outpatient (CLI) | payer OTHER, SELFPAY ==
[2018-10-05 11:12] VITALS: BMI 34.0
--- NOTE | 2018-10-22 09:23 | OB.TRI.NOTE ---
History of Present Illness Date of Service: 10/05/18 Was patient seen by the physician?: No Reason For Visit: NST Date of Service: 10/05/18 Final ESTUARDO: 10/28/18 Final ESTUARDO Source: US <20 weeks Gestational age: 36 Weeks and 5 Days History of Present Illness: 36+ week intrauterine with twin gestation presents for routine nonstress testing. Allergies latex Allergy (Verified 10/13/18 13:24) Rash Penicillins Allergy (Verified 10/09/18 10:58) Rash NST - FHR Rate Baby A NST Reactive:: Yes FHR Category:: Category I - FHR Rate Baby B NST Reactive:: Yes FHR Category:: Category I Impression/Plan 36+ week intrauterine with twin gestation with nonstress test reactive x2. Continuing routine care and twice weekly nonstress testing.
== END 2018-10-05 12:02 | disposition home or self-care (01) ==
LOC: WPOUT 11:11 → WP 11:12
PROVIDERS: Referring Provider Obstetrics & Gynecology; Visit Provider Obstetrics & Gynecology
DX: O30.003 Twin pregnancy, unspecified number of placenta and unspecified number of amniotic sacs, third trimester (principal); Z3A.36 36 weeks gestation of pregnancy
CPT/HCPCS: 59025

== ENCOUNTER 2018-10-09 10:30 | Outpatient (CLI) | payer OTHER, SELFPAY ==
[2018-10-09 10:53] VITALS: BMI 34.1
--- NOTE | 2018-10-10 09:23 | OB.TRI.NOTE ---
History of Present Illness Date of Service: 10/09/18 Was patient seen by the physician?: No Reason For Visit: NST Date of Service: 10/09/18 Final ESTUARDO: 10/28/18 Final ESTUARDO Source: US <20 weeks Gestational age: 37 Weeks and 3 Days History of Present Illness: Twin gestation for scheduled NST Allergies Penicillins Allergy (Verified 10/09/18 10:58) Rash Physical Exam General: Alert, Oriented x3, Cooperative, No apparent distress Cardiovascular: Regular rate, Regular Rhythm Lungs: Clear to auscultation, Normal air movement Abdomen: Soft, Non Tender, Non-Distended, Gravid, - - LGA twins Extremities:: No edema Estimated gestational size: Large for gestational age Presentation: Unable to assess NST - FHR Rate Baby A Baseline: 140s Variability:: Moderate Accelerations:: 15 x 15 Decelerations:: None NST Reactive:: Yes, Appropriate for gestational age FHR Category:: Category I Uterine Activity:: rare - FHR Rate Baby B Baseline: 150s Variability:: Moderate Accelerations:: 15 x 15 Decelerations:: None NST Reactive:: Yes, Appropriate for gestational age FHR Category:: Category I Uterine Activity:: rare Impression/Plan Reassuring twin NST.
== END 2018-10-09 11:20 | disposition home or self-care (01) ==
LOC: WPOUT 10:36 → WP 10:37
PROVIDERS: Referring Provider Obstetrics & Gynecology; Visit Provider Obstetrics & Gynecology
DX: O30.003 Twin pregnancy, unspecified number of placenta and unspecified number of amniotic sacs, third trimester (principal); Z3A.37 37 weeks gestation of pregnancy
CPT/HCPCS: 59025; 59050; 99218; G0378

== ENCOUNTER 2018-10-14 09:45 | Inpatient (IN) | payer OTHER, SELFPAY ==
[2018-10-13 13:59] LABS: Prothrombin Time (Protime)PT. 13.4 SECONDS (11.7-14.9)
[2018-10-13 14:00] LABS: Partial Thromboplast Time 26.5 Seconds (24.1-36.2)
[2018-10-13 14:02] LABS: Absolute Lymphocyte Count 1.82 X10^3/ul (0.83-4.51); Basophil# 0.01 X10^3/uL; Basophil% 0.1 % (0-1); Eosinophil# 0.05 X10^3/uL; Eosinophils% 0.4 % (0-5); Hematocrit 36.6 % (37-47); Hemoglobin 12.3 g/dl (12.0-15.0); Lymphocyte # 1.82 X10^3/ul (4.0); Lymphocyte % 16.1 % (19-41); Mean Corp Hgb Conc 33.6 g/gl (32-36); Mean Corpuscular Hgb 30.8 pg (27.0-32.0); Mean Corpuscular Volume 91.7 fL (81-99); Mean Platelet Vol. 10.5 fl (6.2-12.0); Monocyte% 3.5 % (0-10); Neutrophil # 8.99 X10^3/uL (2.7-7.7); Neutrophil % 79.7 % (47-70); Platelet Count 196 K/mm3 (150-450); RBC Distribution Width CV 14.9 % (11.6-14.6); RBC Distribution Width SD 50.1 fl (35.1-43.9); Red Blood Count 3.99 M/mm3 (4.2-5.4); White Blood Count 11.3 K/mm3 (4.4-11.0)
[2018-10-13 14:05] LABS: POSITIVE COUNT NO; POSITIVE DIFFERENTIAL NO; POSITIVE MORPHOLOGY NO
[2018-10-14] VITALS (17 sets, daily range): BP systolic 110–134; BP diastolic 47–81; PULSE 52–78; RESP 16–18; TEMP 36.3–37.1; O2SAT 95–99; BMI 34.4
[2018-10-14] MEDS: Lactated Ringers 1,000 ML 999 ML IV (11:15)
[2018-10-14] MEDS: Lactated Ringers 1,000 ML 150 ML IV (11:43)
[2018-10-14] MEDS: Sodium Citrate/Citric Acid 30 ML UDC PO (11:44)
[2018-10-14] MEDS: Cefazolin 2 GM in 0.9% Normal Saline 100 ML IV (12:00)
[2018-10-14] MEDS: Oxytocin 30 units/NS 500 ml 30 UNITS/500 ML IV.SOLN 167 UNITS IV (12:31)
--- NOTE | 2018-10-14 13:14 | PLAC_PTH ---
PATIENT: ANTONIO AVILES LOC: [facility] U#:[id number] AGE/SX: ROOM: WP004 RE10/14/[address]: Dr. Trevor Grissom MD : 1990 BED: 1 DIS: 10/15/2018 SPEC #: [id number] RECD: 10/14/18 16:06 STATUS: YVONNE REVic #: [id number] MARY ELLEN: 10/14/18 13:[address]: Trevor Grissom DEPT: SURGICAL PATHOLOGY RECD BY: Pedro Flynn ENTERED: 10/15/18 08:21 SP TYPE: PLACENTA OTHR DR: No Primary Care Phys Tissues: Placenta, NOS Procedures: Surgery Specimen Level V HEADER OPERATION: Primary section PRE-OP DIAGNOSIS: Twin gestation TISSUE SUBMITTED: Placenta MICROSCOPIC DIAGNOSIS Twin placenta (dichorionic-diamniotic): Placenta A (474 gm): Umbilical cord - trivascular with no inflammation. Placental membranes - no pathologic change. Placental disc - mildly increased intraparenchymal microcalcifications. Placenta B (488 gm): Umbilical cord - trivascular with no inflammation. Placental membranes - no pathologic change. Placental disc - Tonya-Jong change, mildly increased intraparenchymal congestion, mildly increased intraparenchymal microcalcifications and focal organizing intraparenchymal hemorrhage. AM:orquidea 10/19/18 MICROSCOPIC DESCRIPTION Slides are reviewed. GROSS DESCRIPTION SPECIMEN: TWIN PLACENTA Received in fixative is one container labeled with the patient's name and designated girl #1 has clamp. The specimen consists of a twin placenta consisting of two placental discs, two placental membranes and two umbilical cords. A dividing membranous septum is present between two placental discs. Also present in the container are detached fragments of membrane. / CLINICAL INFORMATION: A. Weight: A - 3.01 kg; B - 2.845 kg B. Gestational Age: 38 weeks C. Sex: A - Female; B - Female PLACENTA A: (clamp) PLACENTAL WEIGHT (POST FIXATION): 474 gm PLACENTAL DIMENSIONS: 22 x 16 x 2.5 cm PLACENTAL SHAPE: Usual ovoid. It is partially disrupted, however, appears to be complete. PLACENTAL WEIGHT FOR GESTATIONAL AGE: Within 10-99th percentile (over/under percentile) MEMBRANES - Present A. Insertion: Marginal B. Site of rupture from edge: The membranes are fragmented and distance of rupture cannot be assessed due to the fragmented nature of the membranes. C. Color of membrane: Mosqueda-mendoza D. Abnormalities: None UMBILICAL CORD - Present A. Color: Mosqueda-mendoza B. Insertion: Paracentral C. Length: 32 cm D. Diameter: 1 cm E. Number of vessels: Three F. Abnormalities: None PLACENTAL DISC - Present A. Color of surface: Mosqueda-mendoza B. surface abnormalities: None C. Maternal cotyledons: Intact with minimal tears. The maternal surface shows increased speckled calcifications. D. Attached retro placental clot: No clot E. Cut surface: Dark red and spongy F. Lesions: None G. Separate clot: Absent PLACENTA B: PLACENTAL WEIGHT (POST FIXATION): 488 gm PLACENTAL DIMENSIONS: 23 x 17 x 3 cm. Succenturiate lobe 3 x 2 x 1 cm PLACENTAL SHAPE: Usual ovoid with a succenturiate lobe PLACENTAL WEIGHT FOR GESTATIONAL AGE: Within 10-99th percentile (over/under percentile) MEMBRANES - Present A. Insertion: Marginal B. Site of rupture from edge: The membranes are fragmented and distance of rupture cannot be assessed due to the fragmented nature of the membranes. C. Color of membrane: Mosqueda-mendoza D. Abnormalities: A few of the blood vessels are noted traversing through the membranes. No obviously ruptured vessels are noted. UMBILICAL CORD - Present A. Color: Mosqueda-mendoza B. Insertion: Almost marginally inserted C. Length: 39 cm D. Diameter: 1 cm E. Number of vessels: Three F. Abnormalities: None PLACENTAL DISC - Present A. Color of surface: Mosqueda-mendoza B. surface abnormalities: None C. Maternal cotyledons: Intact with minimal tears. The maternal surface focally also shows increased speckled calcifications. D. Attached retro placental clot: No clot E. Cut surface: Dark red and spongy F. Lesions: Sections reveal a mosqueda, indurated area measuring 0.5 cm in greatest dimension. G. Separate clot: Absent SECTIONS SUBMITTED: 11 cassettes 1 - Dividing membranous septum, 2-6 - placenta A (2 - membrane roll, 3 - umbilical cord, end inked black, 4-6 - body of the placenta including maternal and surfaces), 7-11 - placenta B (7 - membrane roll, 8 - umbilical cord, end inked black, succenturiate lobe, mosqueda, indurated area, 9-11 - body of the placenta including maternal and surfaces, main lobe of the placenta). SJ:orquidea 10/16/18 TC:5 CPT: 44846 x2
--- NOTE | 2018-10-14 13:20 | PCM.OPRPT ---
Report of Operation Date of Procedure: 10/14/18 Pre-Operative Diagnosis: Twin Gestation, Breech Presentation Post-Operative Diagnosis: Twin Gestation, Breech Presentation Surgery/Procedure Performed:: Primary Low Transverse Cervical Section enterprise solutions architect: Romario Orona Type of Anesthesia:: Spinal Anesthesiologist: Albin Zhang Special Medications: Duramorph Specimen's removed: Placenta to [facility] and Pathology Drains: Matthew to straight drain Estimated Blood Loss (mL): 500 cc Fluids Replaced: Crystalloid Description of Procedure: Findings: Viable female infants with Apgars of 8/9; baby A in cephalic presentation and baby B in laila breech presentation with clear amniotic fluid and normal three-vessel placentae. Indication: This is a 27-year-old with twin gestation who presents for her first at 38 weeks gestation. care has otherwise been uneventful. The patient has been counseled regarding the risk and indications of this procedure including the possibility of bleeding infection and injury to surrounding structures such as bowel bladder. All questions were answered. Procedure: Patient was taken to the operating room where after spinal anesthesia was placed, the patient was prepped and draped in usual sterile fashion and a Matthew catheter was placed. The abdomen was entered through a Pfannenstiel incision and peritoneum was entered bluntly. After developing a bladder flap on the lower uterine segment a low transverse incision was made on the uterus and head was easily delivered onto the operative field the nose mouth and oropharynx were bulb suctioned. Subsequently a viable female infant was born with Apgars of 8/9. The was noted to cry move all extremities vigorously on the operative field. The umbilical cord was doubly clamped and ligated and handed to the nursery personnel who were present for the delivery. A similar procedure was carried out on baby B which was in the laila breech position and had Apgars of 8/9. Placentae were delivered and noted to be 3 vessels and normal. Uterus was exteriorized and remaining placental tissue was removed. The uterus was then closed in 2 layers first with running locked 0 Vicryl suture followed by a second imbricating layer with 0 Vicryl suture. 0 Vicryl suture was then used in a horizontal mattress interrupted fashion to affect final hemostasis of the uterine incision line. Normal fallopian tubes and ovaries were visualized and the uterus was returned to the pelvis. Hemostasis was noted and rectus abdominis muscles were reapproximated in the midline with interrupted Number 0 Vicryl suture in a horizontal mattress fashion. Fascia was closed with running Number 1 PDS Strata fix suture. Subcutaneous tissue was irrigated with copious amouts of saline solution and then closed with running 3-0 Vicryl suture. Skin was closed with 4-0 monocryl suture in a running subcuticular fashion. Steri strips, telfa, and tape were placed across the incision. The patient tolerated the procedure well and was taken to the recovery room in satisfactory condition. Sponge, needle, and instrument counts were all reportedly correct. EBL was less than 500 cc. Ancef 2 gms IV was given prior to the procedure. Spicemen to Pathology: Placentae Grafts/Implants Used: None - Complications None - Admit VTE Documentation VTE Present on Admission: Yes VTE Mechan Device Prophylaxis: SCD's VTE Pharm Prophylaxis ordered?: Yes
--- NOTE | 2018-10-14 13:28 | DCINST_ITS ---
Discharge Diet: No Restrictions Discharge Activity: May not drive while taking narcotic pain medications., May Shower, May Take a Tub Bath May resume sexual activity in: 4-6 weeks Lifting Restrictions: 20 pounds Additional Activity Instructions:: Nothing in the vagina for 4-6 weeks. You may return to work/school in 6 weeks. Call your doctor if your incision/area has: Continuous Slow Oozing, Sudden Increased Bleeding, Increased Pain/ Swelling, Increased Redness, Foul Smelling Discharge Call your doctor if you observe: Fever of 101 or Higher, Inability to urinate, Inability to have a bowel movement, Using more than one pad per hour Additional Instructions: If you experience any of the following, contact your healthcare provider. * Bleeding that soaks a pad every hour for 2 hours * Unrelieved incision or abdominal pain * Swelling, redness, discharge or bleeding from your incision or episiotomy site * Your incision begins to separate * Problems urinating (including inability to urinate or burning while urinating). * Visual changes * Severe headache * Flu-like symptoms * Pain or redness in one of both of your breasts * Pain, warmth, tenderness or swelling in your legs, especially the calf area * Frequent nausea and vomiting * Symptoms of depression or anxiety If you experience any of the following, call 911 or go to the nearest Emergency Room. * Chest pain * Problems breathing * Seizure activity * Partial or complete paralysis of a body part, slurred speech, weakness or drooping of the face, or a sudden inability to walk or hold your balance Allergies/Adverse Reactions: Allergies latex Allergy (Verified 10/13/18 13:24) Rash Penicillins Allergy (Verified 10/09/18 10:58) Rash Medications to take at Discharge Vits [Prenatabs FA ] 1 tablet PO DAILY 08/24/13 Ferrous Gluconate 325 mg PO TIDCM 08/14/18 Calcium Gummies 2 tab PO DAILY 09/04/18 Docusate Sodium [Colace] 100 mg PO BID PRN #60 cap 10/14/18 Oxycodone [Oxyir] 5 mg PO Q6H PRN PRN 7 Days #20 tab 10/14/18 The following prescriptions were given: Oxycodone [Oxyir] 5 mg PO Q6H PRN PRN 7 Days #20 tab PRN Reason: Severe Pain (-08/26) Docusate Sodium [Colace] 100 mg PO BID PRN #60 cap PRN Reason: Constipation Follow-Up: Call to make an appointment with your doctor for an incision check in 1-2 weeks. You will also need a 6 week post- follow up appointment. Test results from this visit will be discussed in further detail at your follow- up appointment, if applicable. Please Follow Up With: Trevor Grissom MD - [phone] When: Call to make an appointment for an incision check in 2 weeks. Primary Care Physician: Care Physician,No Primary [Primary Care Provider] -
[2018-10-14] MEDS: Lactated Ringers 1,000 ML 100 ML IV ×2 (14:05→22:00)
[2018-10-14] MEDS: proMETHazine 25 MG/ML Syringe 12.5 MG IV (14:20)
[2018-10-14] MEDS: Methylergonovine 0.2 MG/ML Ampul IM (15:15)
[2018-10-14] MEDS: Ondansetron 4 MG/2 ML Vial IV (17:07)
[2018-10-14] MEDS: Ketorolac 30 MG/ML Syringe IV (18:44)
[2018-10-14] MEDS: Enoxaparin 30 MG/0.3 ML Syringe SC (18:45)
[2018-10-14] MEDS: 0.9% Saline Lock 10 ML Syringe IV (19:50)
[2018-10-14] MEDS: Nalbuphine 10 MG/ML Ampul 5 MG IV (19:50)
[2018-10-14] MEDS: Cefazolin 1 GM/50 ML BAG IV (19:53)
[2018-10-15] VITALS (9 sets, daily range): BP systolic 100–126; BP diastolic 57–82; PULSE 50–87; RESP 14–97; TEMP 36.6–36.9; O2SAT 17–100
[2018-10-15] MEDS: Ketorolac 30 MG/ML Syringe IV ×4 (00:39→18:41)
[2018-10-15] MEDS: 0.9% Saline Lock 10 ML Syringe IV ×5 (00:40→18:41)
[2018-10-15] MEDS: Cefazolin 1 GM/50 ML BAG IV (03:19)
[2018-10-15 06:54] LABS: Hematocrit 33.5 % (37-47); Mean Corp Hgb Conc 32.8 g/gl (32-36); Mean Corpuscular Hgb 31.2 pg (27.0-32.0); Mean Corpuscular Volume 94.9 fL (81-99); Mean Platelet Vol. 10.4 fl (6.2-12.0); Platelet Count 162 K/mm3 (150-450); RBC Distribution Width CV 14.9 % (11.6-14.6); RBC Distribution Width SD 49.4 fl (35.1-43.9); Red Blood Count 3.53 M/mm3 (4.2-5.4); White Blood Count 13.7 K/mm3 (4.4-11.0)
[2018-10-15 06:57] LABS: Scan Indicated on CBC? Y/N NO
[2018-10-15] MEDS: Senna/Docusate Sodium 1 Tablet PO (07:44)
--- NOTE | 2018-10-15 12:34 | PCM.PN.OB ---
Subjective: Patient without complaints. Tolerating diet well. Pain well controlled. Denies flatus. - Physical Exam Vital Signs Temp Pulse Resp BP Pulse Ox 98.2 F 87 14 113/76 96 10/15/18 07:30 10/15/18 10:00 10/15/18 10:00 10/15/18 07:30 10/15/18 10:00 Oxygen Delivery Method Room Air Weight: 207 lb Body Mass Index (BMI) 34.4 Intake and Output for Last 24 Hours 10/13/18 10/14/18 10/15/18 23:59 23:59 23:59 Intake Total 2458 / 2458 1917 / 1917 Output Total 825 / 825 1000 / 1000 Balance 1633 / 1633 917 / 917 Laboratory Tests Past 24 Hrs 10/15/18 06:30 WBC 13.7 H RBC 3.53 L Hgb 11.0 L Hct 33.5 L MCV 94.9 MCH 31.2 MCHC 32.8 RDW 14.9 H RDW Differential 49.4 H Plt Count 162 MPV 10.4 Wound is clean, dry, intact. Good urine output. Hemoglobin okay. Medical Necessity - Tobacco Use Smoking Status: Never smoker Assessment/Plan All Active Problems Dichorionic diamniotic twin in third trimester (Acute) 34 weeks gestation of (Acute) 36 weeks gestation of (Acute) Dichorionic diamniotic twin gestation (Acute) Peripheral edema (Acute) Doing well postoperative day #1 status post primary section for twin gestation and breech presentation. Continuing present care. If good progress continues anticipate release home tomorrow.
[2018-10-15] MEDS: oxyCODONE 5 MG Tablet PO (17:38)
--- NOTE | 2018-10-15 20:00 | NURSING ---
Dr Grissom called and discharge orders confirmed; Pt is ok to discharge home.
[2018-10-19 14:40] LABS: Pathology Specimen OB SEE PATHOLOGY REPORT
--- OUTSIDE RECORDS SUMMARY | 2018-12-09 17:42 | XMS RPT_ITS ---
:1990 Author Organization OHIP Support Name Relationship Address Phone JANE ACOSTA Unavailable [address] + [place] [address] MATY LENZ Unavailable [address] + [place] [address] [facility] Unavailable [address] + [place] [address] JANE ACOSTA Unavailable [address] + [place] [address] MATY LENZ Unavailable [address] + [place] [address] [facility] Unavailable [address] + [place] [address] JANE ACOSTA Unavailable [address] + [place] [address] MATY LENZ Unavailable [address] + [place] [address] [facility] Unavailable [address] + [place] [address] JANE ACOSTA Unavailable [address] + [place] [address] MATY LENZ Unavailable [address] + [place] [address] [facility] Unavailable [address] + [place] [address] JANE ACOSTA Unavailable [address] + [place] [address] MATY LENZ Unavailable [address] + [place] [address] [facility] Unavailable [address] + [place] [address] JANE ACOSTA Unavailable [address] + [place] [address] MATY LENZ Unavailable [address] + [place] [address] [facility] Unavailable [address] + [place] [address] JOCELYNE ACOSTAON Unavailable [address] + [place] [address] MATY LENZ Unavailable [address] + [place] [address] [facility] Unavailable [address] + [place] [address] KARLAJOCELYNEON Unavailable [address] + [place] [address] MATY LENZ Unavailable [address] + [place] [address] [facility] Unavailable [address] + [place] [address] JANE ACOSTA Unavailable [address] + [place] [address] MATY LENZ Unavailable [address] + [place] [address] [facility] Unavailable [address] + [place] [address] KARLAJOCELYNEON Unavailable [address] + [place] [address] MATY LENZ Unavailable [address] + [place] [address] [facility] Unavailable [address] + [place] [address] KARLAJOCELYNEON Unavailable [address] + [place] [address] MATY LENZ Unavailable [address] + [place] [address] [facility] Unavailable [address] + [place] [address] KARLA JANE Unavailable [address] + [place] [address] MATY LENZ Unavailable [address] + [place] [address] [facility] Unavailable [address] + [place] [address] KARLAJANE Unavailable [address] + [place] [address] MATY LENZ Unavailable [address] + [place] [address] [facility] Unavailable [address] + [place] [address] KARLAJOCELYNEON Unavailable [address] + [place] [address] MATY LENZ Unavailable [address] + [place] [address] [facility] Unavailable [address] + [place] [address] KARLAJOCELYNEON Unavailable [address] + [place] [address] MATY LENZ Unavailable [address] + [place] [address] [facility] Unavailable [address] + [place] [address] KARLA JANE Unavailable [address] + [place] [address] MATY LENZ Unavailable [address] + [place] [address] [facility] Unavailable [address] + [place] [address] JANE ACOSTA Unavailable [address] + [place] [address] MATY LENZ Unavailable [address] + [place] [address] [facility] Unavailable [address] + [place] [address] JANE ACOSTA Unavailable [address] + [place] [address] MATY LENZ Unavailable [address] + [place] [address] [facility] Unavailable [address] + [place] [address] JANE ACOSTA Unavailable [address] + [place] [address] MATY LENZ Unavailable [address] + [place] [address] [facility] Unavailable [address] + [place] [address] JANE ACOSTA Unavailable [address] + [place] [address] MATY LENZ Unavailable [address] [facility] [address] [address] + [place] [address] [facility] Unavailable [address] + [place] [address] JANE ACOSTA Unavailable [address] + [place] [address] LAURENMATY Unavailable [address] [facility] [address] [address] + [place] [address] [facility] Unavailable [address] +. [place] [address] Care Team Providers Name Role Phone Karma Rocha Attending Unavailable Parag, Teresa Primary Care Unavailable Debora Tanner Attending Unavailable Trevor Grissom Attending Unavailable Karma Rocha Attending Unavailable Parag, Teresa Primary Care Unavailable Karma Rocha Attending Unavailable Karma Rocha Referring Unavailable Parag, Teresa Primary Care Unavailable Ramya Dash Attending Unavailable Ramya Dash Referring Unavailable Parag, Teresa Primary Care Unavailable Trevor Grissom Attending Unavailable Trevor Grissom Referring Unavailable Parag, Teresa Primary Care Unavailable Trevor Grissom Attending Unavailable Trevor Grissom Referring Unavailable Parag, Teresa Primary Care Unavailable Trevor Grissom Attending Unavailable Trevor Grissom Referring Unavailable Parag, Teresa Primary Care Unavailable Karma Rocha Attending Unavailable Karma Rocha Referring Unavailable Parag, Teresa Primary Care Unavailable Trevor Grissom Attending Unavailable Parag, Teresa Primary Care Unavailable Karma Rocha Attending Unavailable Karma Rocha Referring Unavailable Parag, Teresa Primary Care Unavailable Trevor Grissom Attending Unavailable Trevor Grissom Referring Unavailable Parag, Teresa Primary Care Unavailable Trevor Grissom Attending Unavailable Trevor Grissom Referring Unavailable Parag, Teresa Primary Care Unavailable Trevor Grissom Attending Unavailable Trevor Grissom Referring Unavailable Parag, Teresa Primary Care Unavailable Trevor Grissom Attending Unavailable Heber Palmer Attending Unavailable Josefina, [facility] Attending Unavailable Josefina, Karma Referring Unavailable Trevor Grissom Attending Unavailable Trevor Grissom Referring Unavailable Trevor Grissom Admitting Unavailable Trevor Grissom Attending Unavailable Trevor Grissom Referring Unavailable Primay Care Physicia, No Primary Care Unavailable Heber Palmer Attending Unavailable Heber Palmer Referring Unavailable PROBLEMS PROBLEMS DATE TYPE CONDITION / CODE ATTENDING STATUS SOURCE 10/16/2018 Unknown G89.18 - Other acute Trevor Grissom Active [facility] / G89.18(ICD-10) Hospital Repository 10/07/2018 Unknown O30.043 - Twin Josefnia Active [facility] , [facility] dichorionic/diamniot Hospital ic, third trimester Repository / O30.043(ICD-10) 10/08/2018 Unknown O62.9 - Abnormality Heber Palmer Active [facility] of forces of labor, [facility] unspecified / Hospital O62.9(ICD-10) Repository 09/30/2018 Unknown Z36.85 - Encounter Trevor Grissom Active [facility] for [facility] screening for Hospital Streptococcus B / Repository Z36.85(ICD-10) 09/24/2018 Unknown O30.003 - Twin Trevor Grissom Active [place] [facility] unspecified number Hospital of placenta and Repository unspecified number of amniotic sacs, third trimester / O30.003(ICD-10) 08/05/2018 Unknown Z34.83 - Encounter Trevor Grissom Active [place] for supervision of [facility] other normal Hospital , third Repository trimester / Z34.83(ICD-10) 03/06/2018 Unknown Z32.01 - Encounter Hecotr Rocha [facility] for test, [facility] result positive / Hospital Z32.01(ICD-10) Repository PROCEDURES PROCEDURES No Procedure Records FoundRESULTS RESULTS CBC-COMPLETE BLOOD CNT Collected: 10/15/2018 Status: F Source: [place] NO DIFF 6:30 AM [facility] REPOSITORY Order Comment: Comments: Day #1 Reason for Laboratory Test TYPE CODE TESTS RESULT OUT OF RANGE REFERENCE UNITS LAB L100.1000 4.4-11.0 K/mm3 High WBC 13.7 LAB L100.1200 4.2-5.4 M/mm3 Low RBC 3.53 LAB L100.1300 12.0-15.0 g/dl Low HGB 11.0 LAB L100.1400 37-47 % Low HCT 33.5 LAB L100.1500 81-99 fL Normal MCV 94.9 LAB L100.1600 27.0-32.0 pg Normal MCH 31.2 LAB L100.1700 32-36 g/gl Normal MCHC 32.8 LAB L100.1810 11.6-14.6 % High RDW CV 14.9 LAB L100.1820 35.1-43.9 fl High RDW SD 49.4 LAB L100.1900 150-450 K/mm3 Normal PLT 162 LAB L100.2000 6.2-12.0 fl Normal MPV 10.4 Performed By: #### L100.0500 #### [facility] [address] [facility] [place], [address] PATHOLOGY SPECIMEN OB Collected: 10/14/2018 Status: F Source: [place] 1:42 PM [facility] REPOSITORY Order Comment: Comments: Twin gestation Reason for Laboratory Test Placenta for Lab studies Send Specimen For (Specify): Studies @ [facility] Lab:Routine Time of Procedure: 1313 Date of Procedure: 10/14/18 Reason specimen being sent to pathology (Hx/complications): Twin Gestation Type of specimen: Placenta Type of procedure performed: Primary Section TYPE CODE TESTS RESULT OUT OF RANGE REFERENCE UNITS LAB L350.1800 SEE Normal PATH. PATHOLOGY Spec. OB REPORT Result Comment: Specimen submitted to Anatomical Pathology Department for testing. Performed By: #### L350.1800 #### [facility] [address] [place], [address] DISCHARGE INSTRUCTION Observed: 10/14/2018 Status: F Source: [place] 1:28 PM [facility] REPOSITORY [facility] Medical Records Department [address] [place] [address] Instructions for Home/Discharge Instructions 10/14/18 1327 MR#: [id number] Acct: [id number] Name: CARI LENZ Rep #: [id number] : 1990 27 From: Trevor Grissom MD PCP: Care Physician, No Primary Status: ADM IN Discharge Diet: No Restrictions Discharge Activity: May not drive while taking narcotic pain medications., May Shower, May Take a Tub Bath May resume sexual activity in: 4-6 weeks Lifting Restrictions: 20 pounds Additional Activity Instructions:: Nothing in the vagina for 4-6 weeks. You may return to work/school in 6 weeks. Call your doctor if your incision/area has: Continuous Slow Oozing, Sudden Increased Bleeding, Increased Pain/ Swelling, Increased Redness, Foul Smelling Discharge Call your doctor if you observe: Fever of 101 or Higher, Inability to urinate, Inability to have a bowel movement, Using more than one pad per hour Additional Instructions: If you experience any of the following, contact your healthcare provider. * Bleeding that soaks a pad every hour for 2 hours * Unrelieved incision or abdominal pain * Swelling, redness, discharge or bleeding from your incision or episiotomy site * Your incision begins to separate * Problems urinating (including inability to urinate or burning while urinating). * Visual changes * Severe headache * Flu-like symptoms * Pain or redness in one of both of your breasts * Pain, warmth, tenderness or swelling in your legs, especially the calf area * Frequent nausea and vomiting * Symptoms of depression or anxiety If you experience any of the following, call 911 or go to the nearest Emergency Room. * Chest pain * Problems breathing * Seizure activity * Partial or complete paralysis of a body part, slurred speech, weakness or drooping of the face, or a sudden inability to walk or hold your balance Allergies/Adverse Reactions: Allergies latex Allergy (Verified 10/13/18 13:24) Rash Penicillins Allergy (Verified 10/09/18 10:58) Rash Medications to take at Discharge Vits [Prenatabs FA ] 1 tablet PO DAILY 08/24/13 Ferrous Gluconate 325 mg PO TIDCM 08/14/18 Calcium Gummies 2 tab PO DAILY 09/04/18 Docusate Sodium [Colace] 100 mg PO BID PRN #60 cap 10/14/18 Oxycodone [Oxyir] 5 mg PO Q6H PRN PRN 7 Days #20 tab 10/14/18 The following prescriptions were given: Oxycodone [Oxyir] 5 mg PO Q6H PRN PRN 7 Days #20 tab PRN Reason: Severe Pain (-08/26) Docusate Sodium [Colace] 100 mg PO BID PRN #60 cap PRN Reason: Constipation Follow-Up: Call to make an appointment with your doctor for an incision check in 1-2 weeks. You will also need a 6 week post- follow up appointment. Test results from this visit will be discussed in further detail at your follow-up appointment, if applicable. Please Follow Up With: Trevor Grissom MD - [phone] When: Call to make an appointment for an incision check in 2 weeks. Primary Care Physician: Care Physician,No Primary [Primary Care Provider] - 10/14/18 1328 <Electronically signed by Trevor Grissom MD> Date Trevor Grissom MD CC: No Primary Care Physician OPERATIVE REPORT Observed: 10/14/2018 Status: F Source: [place] 1:27 PM [facility] REPOSITORY [facility] Medical Records Department [address] [place] [address] Operative Report 10/14/18 1320 MR#: [id number] Acct: [id number] Name: CARI LENZ Rep #: [id number] : 1990 27 From: Trevor Grissom MD PCP: Mika Physician, No Primary Status: ADM IN Location: [place] [address]-1 Report of Operation Date of Procedure: 10/14/18 Pre-Operative Diagnosis: Twin Gestation, Breech Presentation Post-Operative Diagnosis: Twin Gestation, Breech Presentation Surgery/Procedure Performed:: Primary Low Transverse Cervical Section clinic nurse: Romario Orona Type of Anesthesia:: Spinal Anesthesiologist: Albin Zhang Special Medications: Duramorph Specimen's removed: Placenta to [facility] and Pathology Drains: Matthew to straight drain Estimated Blood Loss (mL): 500 cc Fluids Replaced: Crystalloid Description of Procedure: Findings: Viable female infants with Apgars of 8/9; baby A in cephalic presentation and baby B in laila breech presentation with clear amniotic fluid and normal three-vessel placentae. Indication: This is a 27-year-old with twin gestation who presents for her first at 38 weeks gestation. care has otherwise been uneventful. The patient has been counseled regarding the risk and indications of this procedure including the possibility of bleeding infection and injury to surrounding structures such as bowel bladder. All questions were answered. Procedure: Patient was taken to the operating room where after spinal anesthesia was placed, the patient was prepped and draped in usual sterile fashion and a Matthew catheter was placed. The abdomen was entered through a Pfannenstiel incision and peritoneum was entered bluntly. After developing a bladder flap on the lower uterine segment a low transverse incision was made on the uterus and head was easily delivered onto the operative field the nose mouth and oropharynx were bulb suctioned. Subsequently a viable female was born with Apgars of 8/9. The infant was noted to cry move all extremities vigorously on the operative field. The umbilical cord was doubly clamped and ligated and handed to the nursery personnel who were present for the delivery. A similar procedure was carried out on baby B which was in the laila breech position and had Apgars of 8/9. Placentae were delivered and noted to be 3 vessels and normal. Uterus was exteriorized and remaining placental tissue was removed. The uterus was then closed in 2 layers first with running locked 0 Vicryl suture followed by a second imbricating layer with 0 Vicryl suture. 0 Vicryl suture was then used in a horizontal mattress interrupted fashion to affect final hemostasis of the uterine incision line. Normal fallopian tubes and ovaries were visualized and the uterus was returned to the pelvis. Hemostasis was noted and rectus abdominis muscles were reapproximated in the midline with interrupted Number 0 Vicryl suture in a horizontal mattress fashion. Fascia was closed with running Number 1 PDS Strata fix suture. Subcutaneous tissue was irrigated with copious amouts of saline solution and then closed with running 3-0 Vicryl suture. Skin was closed with 4-0 monocryl suture in a running subcuticular fashion. Steri strips, telfa, and tape were placed across the incision. The patient tolerated the procedure well and was taken to the recovery room in satisfactory condition. Sponge, needle, and instrument counts were all reportedly correct. EBL was less than 500 cc. Ancef 2 gms IV was given prior to the procedure. Spicemen to Pathology: Placentae Grafts/Implants Used: None - Complications None - Admit VTE Documentation VTE Present on Admission: Yes VTE Mechan Device Prophylaxis: SCD's VTE Pharm Prophylaxis ordered?: Yes 10/14/18 1327 <Electronically signed by Trevor Grissom MD> Date Trevor Grissom MD CC: No Primary Care Physician; Trevor Grissom MD Signed PLACENTA Observed: 10/14/2018 Status: F Source: [place] 1:14 PM [facility] REPOSITORY Patient: CARI LENZ : 1990 () Acct Num: [id number] Phys: Jaciel NETTLES,Trevor Unit Num: [id number] Loc: WP VL230-8 Specimen: [id number] Received: 10/14/18 - 1606 Spec Type: PLACENTA TISSUES 1 TISSUES: Placenta, NOS GROSS DESCRIPTION SPECIMEN: TWIN PLACENTA Received in fixative is one container labeled with the patient's name and designated girl #1 has clamp. The specimen consists of a twin placenta consisting of two placental discs, two placental membranes and two umbilical cords. A dividing membranous septum is present between two placental discs. Also present in the container are detached fragments of membrane. / CLINICAL INFORMATION: A. Weight: A - 3.01 kg; B - 2.845 kg B. Gestational Age: 38 weeks C. Sex: A - Female; B - Female PLACENTA A: (clamp) PLACENTAL WEIGHT (POST FIXATION): 474 gm PLACENTAL DIMENSIONS: 22 x 16 x 2.5 cm PLACENTAL SHAPE: Usual ovoid. It is partially disrupted, however, appears to be complete. PLACENTAL WEIGHT FOR GESTATIONAL AGE: Within 10-99th percentile (over/under percentile) MEMBRANES - Present A. Insertion: Marginal B. Site of rupture from edge: The membranes are fragmented and distance of rupture cannot be assessed due to the fragmented nature of the membranes. C. Color of membrane: Mosqueda-mendoza D. Abnormalities: None UMBILICAL CORD - Present A. Color: Mosqueda-mendoza B. Insertion: Paracentral C. Length: 32 cm D. Diameter: 1 cm E. Number of vessels: Three F. Abnormalities: None PLACENTAL DISC - Present A. Color of surface: Mosqueda-mendoza B. surface abnormalities: None C. Maternal cotyledons: Intact with minimal tears. The maternal surface shows increased speckled calcifications. D. Attached retro placental clot: No clot E. Cut surface: Dark red and spongy F. Lesions: None G. Separate clot: Absent PLACENTA B: PLACENTAL WEIGHT (POST FIXATION): 488 gm PLACENTAL DIMENSIONS: 23 x 17 x 3 cm. Succenturiate lobe 3 x 2 x 1 cm PLACENTAL SHAPE: Usual ovoid with a succenturiate lobe PLACENTAL WEIGHT FOR GESTATIONAL AGE: Within 10-99th percentile (over/under percentile) MEMBRANES - Present A. Insertion: Marginal B. Site of rupture from edge: The membranes are fragmented and distance of rupture cannot be assessed due to the fragmented nature of the membranes. C. Color of membrane: Mosqueda-mendoza D. Abnormalities: A few of the blood vessels are noted traversing through the membranes. No obviously ruptured vessels are noted. UMBILICAL CORD - Present A. Color: Mosqueda-mendoza B. Insertion: Almost marginally inserted C. Length: 39 cm D. Diameter: 1 cm E. Number of vessels: Three F. Abnormalities: None PLACENTAL DISC - Present A. Color of surface: Mosqueda-mendoza B. surface abnormalities: None C. Maternal cotyledons: Intact with minimal tears. The maternal surface focally also shows increased speckled calcifications. D. Attached retro placental clot: No clot E. Cut surface: Dark red and spongy F. Lesions: Sections reveal a mosqueda, indurated area measuring 0.5 cm in greatest dimension. G. Separate clot: Absent SECTIONS SUBMITTED: 11 cassettes 1 - Dividing membranous septum, 2-6 - placenta A (2 - membrane roll, 3 - umbilical cord, end inked black, 4-6 - body of the placenta including maternal and surfaces), 7-11 - placenta B (7 - membrane roll, 8 - umbilical cord, end inked black, succenturiate lobe, mosqueda, indurated area, 9-11 - body of the placenta including maternal and surfaces, main lobe of the placenta). JELANI:orquidea 10/16/18 TC:5 CPT: 22103 x2 HEADER OPERATION: Primary section PRE-OP DIAGNOSIS: Twin gestation TISSUE SUBMITTED: Placenta MICROSCOPIC DESCRIPTION Slides are reviewed. MICROSCOPIC DIAGNOSIS Twin placenta (dichorionic-diamniotic): Placenta A (474 gm): Umbilical cord - trivascular with no inflammation. Placental membranes - no pathologic change. Placental disc - mildly increased intraparenchymal microcalcifications. Placenta B (488 gm): Umbilical cord - trivascular with no inflammation. Placental membranes - no pathologic change. Placental disc - Tonya-Jong change, mildly increased intraparenchymal congestion, mildly increased intraparenchymal microcalcifications and focal organizing intraparenchymal hemorrhage. AM:orquidea 10/19/18 Signed Ignacio Fred 10/19/18 <signature on file> Performed By: #### PPLAC #### [facility] [address] [address] [place], [place], [address] PROTHROMBIN TIME W/INR Collected: 10/13/2018 Status: F Source: [place] 1:33 PM [facility] REPOSITORY TYPE CODE TESTS RESULT OUT OF RANGE REFERENCE UNITS LAB L300.4150 11.7-14.9 SECONDS Normal PROTIME 13.4 LAB L300.4200 Normal INR 1.0 Performed By: #### L300.3900, L300.4310 #### [facility] [address] [place], [address] PARTIAL THROMBOPLAST Collected: 10/13/2018 Status: F Source: [place] TIME 1:33 PM [facility] REPOSITORY TYPE CODE TESTS RESULT OUT OF RANGE REFERENCE UNITS LAB L300.4310 24.1-36.2 Seconds Normal PTT 26.5 Performed By: #### L300.3900, L300.4310 #### [facility] [address] [facility] [place], [address] CBC W/DIFF, AUTOMATED Collected: 10/13/2018 Status: F Source: [place] 1:33 PM [facility] REPOSITORY TYPE CODE TESTS RESULT OUT OF RANGE REFERENCE UNITS LAB L100.1000 4.4-11.0 K/mm3 High WBC 11.3 LAB L100.1200 4.2-5.4 M/mm3 Low RBC 3.99 LAB L100.1300 12.0-15.0 g/dl Normal HGB 12.3 LAB L100.1400 37-47 % Low HCT 36.6 LAB L100.1500 81-99 fL Normal MCV 91.7 LAB L100.1600 27.0-32.0 pg Normal MCH 30.8 LAB L100.1700 32-36 g/gl Normal MCHC 33.6 LAB L100.1810 11.6-14.6 % High RDW CV 14.9 LAB L100.1820 35.1-43.9 fl High RDW SD 50.1 LAB L100.1900 150-450 K/mm3 Normal PLT 196 LAB L100.2000 6.2-12.0 fl Normal MPV 10.5 LAB L100.2100 47-70 % High NEUT% 79.7 LAB L100.2200 19-41 % Low LY% 16.1 LAB L100.2300 0-10 % Normal MONO% 3.5 LAB L100.2400 0-5 % Normal EO% 0.4 LAB L100.2500 0-1 % Normal BASO% 0.1 LAB L100.2550 0.0-0.9 % Normal IM GRAN % 0.200 Result Comment: IG% - Immature Granulocytes (promyelocytes, myelocytes and metamyelocytes) > 1% indicates that a LEFT SHIFT is Present. LAB L100.2620 2.0-7.7 X10 3/uL High Absolute Neut 9.0 LAB L100.2720 0.83-4.51 X10 3/ul Normal Absolute Lymph 1.82 Performed By: #### L100.0100 #### [facility] [address] [place], [place], [id number] TYPE AND SCREEN Collected: 10/13/2018 Status: F Source: [place] 1:33 PM [facility] REPOSITORY Order Comment: Reason for Type AND Screen/Red Cells: SURGERY Type of Surgery: TYPE CODE TESTS RESULT OUT OF RANGE REFERENCE UNITS LAB B10.0800 A Normal BLOOD TYPE GEL POSITIVE LAB B100.4000 Normal Antibody NEGATIVE Screen Performed By: #### B101.7450 #### [facility] [address] [place], [place], [address] GROUP B STREP DNA Collected: 09/30/2018 Status: F Source: [place] BY PCR 7:25 PM [facility] REPOSITORY TYPE CODE TESTS RESULT OUT OF RANGE REFERENCE UNITS LAB L8200.0100 Negative Normal GBS TEST Negative RESULT Performed By: #### L8200.0000 #### [facility] [address] [place], [address] Observed: 09/30/2018 Status: F Source: [place] CULTURE, GROUP B 9:30 AM [facility] STREPT[facility] REPOSITORY Comments: VAGINAL/RECTAL WILFREDO Culture Group B Beta Streptococcus is not isolated. Performed By: #### M100.1800 #### [facility] [address] [place], [address] Observed: 09/30/2018 Status: F Source: BREONNA CULTURE, GROUP B 12:00 AM [facility] STREPTOCOCCUS REPOSITORY WILFREDO Culture Group B Beta Streptococcus is not isolated. Performed By: #### M100.1800 #### [facility] [address] [place], [address] TYPE AND SCREEN Collected: 09/07/2018 Status: F Source: BREONNA 6:45 PM [facility] REPOSITORY Order Comment: Reason for Type AND Screen/Red Cells: TYPE CODE TESTS RESULT OUT OF RANGE REFERENCE UNITS LAB B10.0800 A Normal BLOOD TYPE GEL POSITIVE LAB B100.4000 Normal Antibody NEGATIVE Screen Performed By: #### B101.7450 #### [facility] [address] [facility] [place], [address] FIBRONECTIN Collected: 09/07/2018 Status: F Source: BREONNA 6:05 PM [facility] REPOSITORY TYPE CODE TESTS RESULT OUT OF RANGE REFERENCE UNITS LAB L205.0100 Normal fFN Negative Performed By: #### L205.0000 #### [facility] [address] [place], [address] GESTATIONAL GTT 3HR Collected: 08/12/2018 Status: F Source: BREONNA 100G 9:56 AM [facility] REPOSITORY Order Comment: Is Patient Fasting? Y TYPE CODE TESTS RESULT OUT OF RANGE REFERENCE UNITS LAB L501.0650 <105 mg/dL Normal GLU 78 GTT-FASTING Result Comment: GLUCOSE TOLERANCE TEST FOR Reference Interval GESTATIONAL DIABETES Fasting <105 mg/dL 1 hour <190 mg/dl 2 hour <165 mg/dl 3 hour <145 mg/dl LAB L501.0660 <190 mg/dL Normal GLU GTT- 1HR 158 LAB L501.0670 <165 mg/dL High GLU GTT- 2HR 177 LAB L501.0680 <145 L Normal GLU GTT- 3HR 105 Performed By: #### L500.4710 #### [facility] [address] [place], [place], [address] CBC-COMPLETE BLOOD CNT Collected: 08/05/2018 Status: F Source: BREONNA NO DIFF 1:10 PM [facility] REPOSITORY TYPE CODE TESTS RESULT OUT OF RANGE REFERENCE UNITS LAB L100.1000 4.4-11.0 K/mm3 High WBC 15.9 LAB L100.1200 4.2-5.4 M/mm3 Low RBC 3.38 LAB L100.1300 12.0-15.0 g/dl Low HGB 10.2 LAB L100.1400 37-47 % Low HCT 31.3 LAB L100.1500 81-99 fL Normal MCV 92.6 LAB L100.1600 27.0-32.0 pg Normal MCH 30.2 LAB L100.1700 32-36 g/gl Normal MCHC 32.6 LAB L100.1810 11.6-14.6 % Normal RDW CV 14.0 LAB L100.1820 35.1-43.9 fl High RDW SD 45.7 LAB L100.1900 150-450 K/mm3 Normal PLT 250 LAB L100.2000 6.2-12.0 fl Normal MPV 10.0 Performed By: #### L100.0500 #### [facility] [address] [place], [place], [address] GLUCOSE CHALLENGE GEST Collected: 08/05/2018 Status: F Source: BREONNA 1H 50G 1:10 PM [facility] REPOSITORY Order Comment: PLEASE ADD TO LABS DRAWN 08/05/18 LOCATION: [place] 4 H TYPE CODE TESTS RESULT OUT OF RANGE REFERENCE UNITS LAB L501.0250 70-140 mg/dL High GLU GEST 153 50g 1H Performed By: #### L501.0250, L503.6030, L503.6550 #### [facility] [address] [facility] [place], [address] IRON+IRON BINDING Collected: 08/05/2018 Status: F Source: BREONNA CAPACITY 1:10 PM [facility] REPOSITORY Order Comment: PLEASE ADD TO LABS DRAWN 08/05/18 LOCATION: [facility] 4 H TYPE CODE TESTS RESULT OUT OF REFERENCE UNITS RANGE LAB L503.6075 250-450 ug/dL TIBC High 511 LAB L503.6150 50-170 ug/dL Low IRON 43 LAB L503.6250 15.0-55.0 % Low IRON SATURATION 8.4 Performed By: #### L501.0250, L503.6030, L503.6550 #### [facility] [address] [facility], [address] FERRITIN Collected: 08/05/2018 Status: F Source: DERBY 1:10 PM [facility] REPOSITORY Order Comment: PLEASE ADD TO LABS DRAWN 08/05/18 LOCATION: [facility] 4 H TYPE CODE TESTS RESULT OUT OF REFERENCE UNITS RANGE LAB L503.6550 8-252 ng/mL Low FERRITIN 4 Performed By: #### L501.0250, L503.6030, L503.6550 #### [facility] [address] [place], [address] EMERGENCY DEPARTMENT Observed: 03/09/2018 Status: F Source: BREONNA SUMMARY 1:15 AM [facility] REPOSITORY [facility] Medical Records Department [address] [place] [address] Emergency Department Summary 03/08/18 2248 MR#: [id number] Acct: [id number] Name: CARI LENZ Rep #: [id number] : 1990 27 From: Debora Tanner MD PCP: Teresa Tuttle MD Status: DEP ER - ER Visit Summary Date of Service: 03/08/18 Chief Complaint: Nausea and vomiting History of Present Illness: The patient is a 27 F who is currently 6 weeks . Patient has had nausea, vomiting, diarrhea since late last night. Her son is ill with stomach flu as well. Patient denies fever. She denies any cramping or bleeding. Physical Examination: Blood pressure is 93/69, temperature 97.6, heart rate 109, respiratory rate 22, pulse ox 98% on room air. Patient sitting upright in bed no acute distress. She is nontoxic appearing. Head neck examination is unremarkable. Heart is slightly tachycardic and regular. Lung sounds are clear. Abdomen is soft and nontender. Test Results: CBC was a white count of 14.6 with 93% neutrophils. Chemistry studies are normal. Urinalysis is significant for 150 ketones. Emergency Department Course and Treatment: Patient was initially given Phenergan and a liter of IV fluids. Nursing staff states that her nausea was starting to return. Blood pressure was still in the 90s systolic. She is given additional 500 cc of fluids and Zofran. Repeat evaluation at this time she is sleeping comfortably. Patient was given ice chips and was able to keep this down. She apparently was given mandrin oranges and after eating this felt worse epigastric pain and nausea. She was given a dose of Pepcid and Zofran. At this time she is sleeping comfortably. She will be discharged to home. She will be given a home pack of Phenergan with a prescription for Phenergan. She is to follow- up with her EASEMENT MAN, Dr. Kolton Frederick. Treatment Plan: [] Disposition: Discharge Impression: 1. Gastroenteritis 2. First trimester This note was generated with UniYu dictation software. It may contain incorrect words, spelling, and punctuation that were not noted in review of the chart prior to signing ED Disposition - Plan for ED Patient: Disposition: Home or Assisted Living Chief Complaint: Nausea/Vomiting Instructions: ED Nausea Vomiting Prescriptions: proMETHazine tablet [Phenergan] 0.5 - 1 tab PO Q6H PRN PRN #10 tablet PRN Reason: Nausea Referrals: Teresa Tuttle MD [Primary Care Provider] - Karma Rocha MD [STAFF PHYSICIAN] - What to do if you have Problems For any increased pain, shortness of breath, bleeding, nausea or vomiting, chest pain, or any unexpected problems, contact your Primary Care Provider. Call [facility] ([phone]) or report to the closest Emergency Room. Call 911 if necessary. 03/09/18 0115 <Electronically signed by Debora Tanner MD> Date Debora Tanner MD Cosigner Signature (If Indicated): Date CC: Teresa Tuttle MD DISCHARGE INSTRUCTION Observed: 03/08/2018 Status: F Source: BREONNA 11:08 PM [facility] REPOSITORY [facility] Medical Records Department [address] [place] [address] Discharge Instruction 03/08/182305 MR#: [id number] Acct: [id number] Name: CARI LENZ Rep #: [id number] : 1990 27 From: Debora Tanner MD PCP: Teresa Tuttle MD Status: REG ER ED Disposition - Plan for ED Patient: Disposition: Home or Assisted Living Chief Complaint: Nausea/Vomiting Instructions: ED Nausea Vomiting Prescriptions: proMETHazine tablet [Phenergan] 0.5 - 1 tab PO Q6H PRN PRN #10 tablet PRN Reason: Nausea Referrals: Teresa Tuttle MD [Primary Care Provider] - Karma Rocha MD [STAFF PHYSICIAN] - What to do if you have Problems For any increased pain, shortness of breath, bleeding, nausea or vomiting, chest pain, or any unexpected problems, contact your Primary Care Provider. Call [facility] ([phone]) or report to the closest Emergency Room. Call 911 if necessary. 03/08/182307 <Electronically signed by Debora Tanner MD> Date Debora Tanner MD Cosigner Signature (If Indicated): Date ____ CC: Teresa Tuttle MD URINALYSIS, COMPLETE Collected: 03/08/2018 Status: F Source: DERBY 8:36 PM [facility] REPOSITORY Order Comment: How was Urine Obtained? CLEAN CATCH TYPE CODE TESTS RESULT OUT OF RANGE REFERENCE UNITS LAB L400.3000 Yellow COLOR Normal Yellow LAB L400.3050 Clear Normal CLARITY Cloudy LAB L400.3200 Normal mg/dl Normal GLUCOSE, UR Normal LAB L400.3300 Negative mg/dL High BILIRUBIN URINE 1 Result Comment: COLOR OF URINE MAY AFFECT DIPSTICK RESULTS. LAB L400.3400 Negative mg/dl High KETONE UR 150 Result Comment: RESULTS CALLED TO JULITA2 03/08/182057 Misael Douglas. REPORT READ BACK BY WILD2. CRITICAL VALUE *H LAB L400.3465 1.002-1.030 Normal SP.GR. DIPSTX 1.025 LAB L400.3550 5.0 - 8.0 pH Normal UR 6.0 LAB L400.3600 Negative mg/dl High 30 PROT DIPSTX LAB L400.3700 Normal mg/dl High 1 UROBILI LAB L400.3750 Negative Normal NITRITE UR Negative LAB L400.3780 Negative /ul High 10 OCCULT BLOOD-UR LAB L400.3800 Negative /ul High LEUK ESTERASE 100 LAB L400.4050 0-5 /hpf Normal WBC 0-5 SEEN LAB L400.4100 0-5 /hpf 0 Normal RBC-UA SEEN LAB L400.4150 5-10 /hpf Normal SQUAM EPI 0-5 SEEN LAB L400.4300 None Seen /hpf 1+ Normal BACTERIA LAB L400.4350 <or=2+ /hpf 2+ Normal MUCUS, URINE Performed By: #### L400.0001 #### [facility] [address] [place], [place], [address] CBC W/DIFF, AUTOMATED Collected: 03/08/2018 Status: F Source: DERBY 8:31 PM [facility] REPOSITORY TYPE CODE TESTS RESULT OUT OF RANGE REFERENCE UNITS LAB L100.1000 4.4-11.0 K/mm3 High WBC 14.6 LAB L100.1200 4.2-5.4 M/mm3 Normal RBC 4.59 LAB L100.1300 12.0-15.0 g/dl Normal HGB 13.9 LAB L100.1400 37-47 % Normal HCT 41.5 LAB L100.1500 81-99 fL Normal MCV 90.4 LAB L100.1600 27.0-32.0 pg Normal MCH 30.3 LAB L100.1700 32-36 g/gl Normal MCHC 33.5 LAB L100.1810 11.6-14.6 % Normal RDW CV 12.7 LAB L100.1820 35.1-43.9 fl Normal RDW SD 41.2 LAB L100.1900 150-450 K/mm3 Normal PLT 230 LAB L100.2000 6.2-12.0 fl Normal MPV 9.5 LAB L100.2100 47-70 % High NEUT% 93.5 LAB L100.2200 19-41 % Low LY% 3.6 LAB L100.2300 0-10 % Normal MONO% 2.5 LAB L100.2400 0-5 % Normal EO% 0.1 LAB L100.2500 0-1 % Normal BASO% 0.1 LAB L100.2550 0.0-0.9 % Normal IM GRAN % 0.200 Result Comment: IG% - Immature Granulocytes (promyelocytes, myelocytes and metamyelocytes) > 1% indicates that a LEFT SHIFT is Present. LAB L100.2620 2.0-7.7 X10 3/uL High Absolute Neut 13.7 LAB L100.2720 0.83-4.51 X10 3/ul Low Absolute Lymph 0.52 LAB L100.4500 Normal SMEAR COMMENT SCANNED Result Comment: LYMPHOPENIA NOTED Performed By: #### L100.0100 #### [facility] [address] [place], [place], [address] BASIC METABOLIC Collected: 03/08/2018 Status: F Source: DERBY PROFILE (BMP) 8:31 PM [facility] REPOSITORY TYPE CODE TESTS RESULT OUT OF RANGE REFERENCE UNITS LAB L501.0100 74-106 mg/dL Normal GLU 101 Result Comment: Fasting Glucose result from 100 to 125 mg/dL suggests IMPAIRED HOMEOSTASIS per A.D.A. criteria. Please note revised GLUCOSE reference range effective 2017. LAB L501.1000 7-18 mg/dL Normal BUN 15 LAB L501.1100 0.55-1.02 mg/dL Normal CREAT,SERUM 0.66 Result Comment: The validity of the calculated GFR AND GFRAA in patients over 70 years has not been determined. Clinical correlation is essential. LAB L501.1110 >60 mL/min Normal EST GFR 114 Result Comment: Non- GFR Calc LAB L501.1115 >60 mL/min Normal EST GFR - AA 138 Result Comment: GFR Calc LAB L501.1255 ml/min Normal Estimated CRCL 116.23 LAB L501.1300 10-20 RATIO High BUN/CRE 22.6 LAB L501.2200 8.5-10 mg/dL .1 CA Normal 9.1 LAB L501.5300 136-14 mmol/L 5 NA Normal 136 LAB L501.5600 3.5-5. mmol/L 1 K Normal 4.0 LAB L501.5900 98-107 mmol/L CL Normal 103 LAB L501.6100 21.0-3 mmol/L 2.0 CO2 Normal 25.0 LAB L501.6200 5-15 GAP Normal 8 Performed By: #### L500.2500 #### [facility] [address] [place], [address] URINE DRUG SCREEN Collected: 03/06/2018 Status: F Source: DERBY (Kelkoo) 10:25 AM [facility] REPOSITORY Order Comment: List of Drugs Taken or Suspected? UNK TYPE CODE TESTS RESULT OUT OF RANGE REFERENCE UNITS LAB L505.0075 TO BE Normal CONFIRMED Result Comment: CONFIRMATORY TESTING FOR ALL POSITIVE URINE DRUG SCREEN RESULTS WILL ONLY BE SENT OUT UPON PHYSICIAN ORDER. VISTA Urine Drug Screen methods provide only preliminary analytical test results. A more specific alternate chemical method must be used in order to obtain a confirmed analytical result. Gas chromatography/mass spectrometery (GC/MS) is the preferred confirmatory method. Clinical consideration and professional judgement should be applied to any drug of abuse test result, particularly when preliminary positive results are used. URINE TCA TESTING MUST BE ORDERED SEPARATELY. USE TEST MNEMONIC: UTCA LAB L505.5005 VISTA UDS PH 6 Normal LAB L505.5015 <1000 ng/mL AMPHETAMINES Normal NEGATIVE LAB L505.5025 < 200 ng/mL BARBITIURATES Normal NEGATIVE LAB L505.5035 < 200 ng/mL BENZODIAZIPINE Normal NEGATIVE LAB L505.5045 < 300 ng/mL COCAINE Normal NEGATIVE LAB L505.5055 < 500 ng/mL ECSTACY Normal NEGATIVE LAB L505.5065 < 300 ng/mL METHADONE Normal NEGATIVE LAB L505.5075 < 300 ng/mL OPIATES Normal NEGATIVE LAB L505.5085 < 25 ng/mL PCP Normal NEGATIVE LAB L505.5095 < 50 ng/mL THC Normal NEGATIVE Performed By: #### L505.5000 #### [facility] [address] [place], [place], [address] URINALYSIS, ROUTINE Collected: 03/06/2018 Status: F Source: DERBY (DIPSTICK) 10:25 AM [facility] REPOSITORY Order Comment: How was Urine Obtained? Urine, Random TYPE CODE TESTS RESULT OUT OF RANGE REFERENCE UNITS LAB L400.3000 Yellow COLOR Normal Yellow LAB L400.3050 Clear Normal CLARITY Clear LAB L400.3200 Normal mg/dl Normal GLUCOSE, UR Normal LAB L400.3300 Negative mg/dL Normal BILIRUBIN URINE Negative LAB L400.3400 Negative mg/dl Normal KETONE UR Negative LAB L400.3465 1.002-1.030 Normal SP.GR. DIPSTX 1.010 LAB L400.3550 5.0 - 8.0 pH UR Normal 8.0 LAB L400.3600 Negative mg/dl PROT Normal DIPSTX Negative LAB L400.3700 Normal mg/dl Normal UROBILI Normal LAB L400.3750 Negative Normal NITRITE UR Negative LAB L400.3780 Negative /ul Normal OCCULT BLOOD-UR Negative LAB L400.3800 Negative /ul High LEUK ESTERASE 100 Performed By: #### L400.2010 #### [facility] [address] [place], [place], [address] CBC W/DIFF, AUTOMATED Collected: 03/06/2018 Status: F Source: DERBY 10:25 AM [facility] REPOSITORY TYPE CODE TESTS RESULT OUT OF RANGE REFERENCE UNITS LAB L100.1000 4.4-11.0 K/mm3 Normal WBC 7.9 LAB L100.1200 4.2-5.4 M/mm3 Normal RBC 4.28 LAB L100.1300 12.0-15.0 g/dl Normal HGB 13.3 LAB L100.1400 37-47 % Normal HCT 39.0 LAB L100.1500 81-99 fL Normal MCV 91.1 LAB L100.1600 27.0-32.0 pg Normal MCH 31.1 LAB L100.1700 32-36 g/gl Normal MCHC 34.1 LAB L100.1810 11.6-14.6 % Normal RDW CV 12.5 LAB L100.1820 35.1-43.9 fl Normal RDW SD 40.9 LAB L100.1900 150-450 K/mm3 Normal PLT 266 LAB L100.2000 6.2-12.0 fl Normal MPV 9.6 LAB L100.2100 47-70 % High NEUT% 75.6 LAB L100.2200 19-41 % Low LY% 17.4 LAB L100.2300 0-10 % Normal MONO% 5.7 LAB L100.2400 0-5 % Normal EO% 0.9 LAB L100.2500 0-1 % Normal BASO% 0.3 LAB L100.2550 0.0-0.9 % Normal IM GRAN % 0.100 Result Comment: IG% - Immature Granulocytes (promyelocytes, myelocytes and metamyelocytes) > 1% indicates that a LEFT SHIFT is Present. LAB L100.2620 2.0-7.7 X10 3/uL Normal Absolute Neut 6.0 LAB L100.2720 0.83-4.51 X10 3/ul Normal Absolute Lymph 1.37 Performed By: #### L100.0100 #### [facility] [address] [place] [address], [id number] THYROID STIM HORMONE Collected: 03/06/2018 Status: F Source: DERBY (TSH) 10:25 AM [facility] REPOSITORY TYPE CODE TESTS RESULT OUT OF RANGE REFERENCE UNITS LAB L501.9520 0.358-3.74 uIU/mL Normal TSH 1.30 Performed By: #### L501.9520 #### [facility] [place], [place], [address] HEMOGLOBIN A1C Collected: 03/06/2018 Status: F Source: DERBY 10:25 AM [facility] REPOSITORY TYPE CODE TESTS RESULT OUT OF RANGE REFERENCE UNITS LAB L501.9985 4.2-6.3 % Normal HGB A1C 5.0 Performed By: #### L501.9985 #### [facility] [address] [place], [address] VITAMIN D,25 HYDROXY Collected: 03/06/2018 Status: F Source: BREONNA 10:25 AM [facility] REPOSITORY TYPE CODE TESTS RESULT OUT OF REFERENCE UNITS RANGE LAB L506.1000 29.95-100.01 ng/mL Low Vitamin D 27.7 25-OH Result Comment: Vitamin D 25(OH) Status Range Deficiency <20 ng/mL (50nmol/L) Insuffciency 20 - 30 ng/mL (50 - 75 nmol/L) Sufficiency 30 - 100 ng/mL (75 - 250 nmol/L) Toxicity >100 ng/mL (>250 nmol/L) Performed By: #### L506.1000, L509.4000, L3890.6005 #### [facility] [address] [place], [address] RUBELLA IGG Collected: 03/06/2018 Status: F Source: BREONNA 10:25 AM [facility] REPOSITORY TYPE CODE TESTS RESULT OUT OF RANGE REFERENCE UNITS LAB L509.4000 IU/mL Normal Rubella IgG 48.2 Result Comment: Antibody results Interpretation of Immune Status < 5 IU/ml Presumed Non-immune 5 - < 10 IU/ml Equivocal > or = 10 IU/ml Presumed Immune Performed By: #### L506.1000, L509.4000, L3890.6005 #### [facility] [address] [place], [address] HIV - [facility] Collected: 03/06/2018 Status: F Source: BREONNA 10:25 AM [facility] REPOSITORY TYPE CODE TESTS RESULT OUT OF RANGE REFERENCE UNITS LAB L3890.6005 Nonreactive Normal HIV - [facility] Non-Reactive Performed By: #### L506.1000, L509.4000, L3890.6005 #### [facility] [address] [place], [address] T AND S-NO Collected: 03/06/2018 Status: F Source: BREONNA CHARGE W/PNP 10:25 AM [facility] REPOSITORY Order Comment: Reason for Type AND Screen/Red Cells: Surgery? N TYPE CODE TESTS RESULT OUT OF RANGE REFERENCE UNITS LAB B10.0800 A Normal BLOOD POSITIVE TYPE GEL LAB B100.4050 Normal Ab SCREEN NEGATIVE GEL Performed By: #### B100.7550 #### [facility] [address] [place], [place], [address] HEPATITIS B SURFACE Collected: 03/06/2018 Status: F Source: BREONNA AG 10:25 AM [facility] REPOSITORY TYPE CODE TESTS RESULT OUT OF RANGE REFERENCE UNITS LAB L3100.0400 Negative Normal HB Negative SURF AG Result Comment: Performed at: [facility] [id number] Quarter Section Ironer: Dannie Justin PhD, Phone: [phone] Performed By: #### L3100.0390, L3100.0625 #### [facility] (refer to report for specific site) refer to report for address and phone number HEPATITIS C ANTIBODIES Collected: 03/06/2018 Status: F Source: DERBY 10:25 AM [facility] REPOSITORY TYPE CODE TESTS RESULT OUT OF RANGE REFERENCE UNITS LAB L3100.0650 0.0-0.9 s/co ratio Normal HEP C AB <0.1 Result Comment: Negative: < 0.8 Indeterminate: 0.8 - 0.9 Positive: > 0.9 The CDC recommends that a positive HCV antibody result be followed up with a HCV Nucleic Acid Amplification test (145372). Performed By: #### L3100.0390, L3100.0625 #### [facility] (refer to report for specific site) refer to report for address and phone number RPR Collected: 03/06/2018 Status: F Source: BREONNA 10:25 AM [facility] REPOSITORY TYPE CODE TESTS RESULT OUT OF REFERENCE UNITS RANGE LAB L700.5100 NONREACTIVE Normal RPR NONREACTIVE Performed By: #### L700.5100 #### [facility] [address] [place], [place], [address] CT/NG [facility] BY PCR Collected: 03/06/2018 Status: F Source: BREONNA 9:45 AM [facility] REPOSITORY TYPE CODE TESTS RESULT OUT OF RANGE REFERENCE UNITS LAB L8200.2100 Negative Normal Chlam Negative Trac PCR LAB L8200.2200 Negative Normal NG by Negative PCR Performed By: #### L8200.2000 #### [facility] [place], [address] ALLERGIES ALLERGIES DATE TYPE / CODE NAME / CODE REACTION SEVERITY SOURCE 10/13/2018 Drug latex/[id number] Rash Unknown [facility] Allergy/4160 8921(RXNORM) Hospital 33862(SNOMED Repository CT) 10/09/2018 Drug Penicillins/ Rash Unknown [facility] Allergy/4160 [id number](R Hospital 18964(SNOMED XNORM) Repository CT) ENCOUNTERS ENCOUNTERS ADMIT/DISCHARGE ACCOUNT ADMITTING ENCOUNTER LOCATION SOURCE NUMBER CLASS 10/14/2018/ [id number] Trevor Grissom Inpatient [place] 8 4 Encounter [facility] ing:WPRoom: Repository TG471Gxp: 1 10/09/2018/ [id number] Ambulatory [place] 8 2 [facility] ing:WPOUTRoom Repository : WP011 10/05/2018/ [id number] Ambulatory [place] 8 6 [facility] ing:WPOUTRoom Repository : WP013 10/02/2018/ [id number] Ambulatory [place] 8 1 [facility] ing:WPOUTRoom Repository : WP012 09/30/2018/ [id number] Ambulatory [place] 8 0 [facility] ing:WPOUTRoom Repository : WP014 09/30/2018 [id number] Ambulatory [place] 9 [facility] ing:LABSPEC Repository 09/28/2018/ [id number] Ambulatory [place] 8 9 [facility] ing:WPOUTRoom Repository : WP014 09/25/2018/ [id number] Ambulatory [place] 8 1 [facility] ing:WPOUTRoom Repository : WP012 09/21/2018/ [id number] Ambulatory [place] 8 6 [facility] ing:WPOUTRoom Repository : WP013 09/17/2018/ [id number] Ambulatory [place] 8 1 [facility] ing:WPOUTRoom Repository : WP012 09/14/2018/ [id number] Ambulatory [place] 8 5 [facility] ing:WPOUTRoom Repository : WP012 09/10/2018/ [id number] Ambulatory [place] 8 4 [facility] ing:WPOUTRoom Repository : WP020 09/08/2018/ [id number] Ambulatory [place] 8 0 [facility] ing:WPOUT Repository 09/07/2018/ [id number] Ambulatory [place] 8 9 [facility] ing:WPOUTRoom Repository : WP012 09/04/2018/ [id number] Ambulatory [place] 8 7 [facility] ing:WPOUTRoom Repository : WP012 09/01/2018/ [id number] Ambulatory [place] 8 8 [facility] ing:WPOUTRoom Repository : WP013 08/14/2018/ [id number] Ambulatory [place] 8 6 [facility] ing:WPOUTRoom Repository : WP013 08/12/2018 [id number] Ambulatory [place] 7 [facility] ing:LAB Repository 08/05/2018 [id number] Ambulatory [place] 3 [facility] ing:WOBLAB Repository 03/08/2018/ [id number] Emergency [place] 8 3 [facility] ing:ED Repository 03/06/2018 [id number] Ambulatory [place] 3 [facility] ing:WOBLAB Repository PAYERS PAYERS ENCOUNTER GUARANTOR PAYER SUBSCRIBER SOURCE 10/14/2018 CARI [id number] Insurance:MEDICAL TROYERDOB: [facility] [id number] Number: Repository [id number]: [phone] [id number] [phone] (HP) Date:1082-04-31NM [address] [address]QO: 10/14/2018 Secondary NOT GIVENUNK [place] Insurance:SELF PAY [facility] Number: Effective Repository Date:2018-09-30 10/09/2018 CARI Hodges Primary MATY [place] [id number] Insurance:MEDICAL TROYERDOB: [facility] [id number] Number: Repository [address]Ulr: 330 [id number] [phone] (HP) Date:8407-10-57HS [address] [address]JL: 10/09/2018 Secondary NOT GIVENUNK [place] Insurance:SELF PAY [facility] Number: Effective Repository Date:2018-10-09 10/05/2018 CARI Hodges Primary MATY [place] [id number] Insurance:MEDICAL TROYERDOB: [facility] [id number] Number: Repository [id number]: 330 [id number] [phone] () Date:4023-51-98HC [address] [address]NZ: 10/05/2018 Secondary NOT GIVENUNK [place] Insurance:SELF PAY [facility] Number: Effective Repository Date:2018-10-05 10/02/2018 CARI Hodges Primary MATY [place] [id number] Insurance:MEDICAL TROYERDOB: [facility] [id number] Number: Repository [id number]: [phone] [id number] [phone] (HP) Date:6273-93-90AM [address] [address]EE: 10/02/2018 Secondary NOT GIVENUNK [place] Insurance:SELF PAY [facility] Number: Effective Repository Date:2018-10-02 09/30/2018 CARI Hodges Primary NOT GIVENUNK [place] [id number] Insurance:SELF PAY [place] Number: Effective Repository [id number]: ([phone]) Date:2018-09-30188 (HP) 09/30/2018 CARI Hodges Primary MATY [place] [id number] Insurance:MEDICAL TROYERDOB: [facility] [id number] Number: Repository [id number]: 330 [id number] [phone] (HP) Date:4192-42-03XL [address] [place] [address]HS: 09/30/2018 Secondary NOT GIVENUNK [place] Insurance:SELF PAY [facility] Number: Effective Repository Date:2018-09-30 09/28/2018 CARI Hodges Primary MATY [place] [id number] Insurance:MEDICAL TROYERDOB: [facility] [id number] Number: Repository [address]Ial: 330 [id number] [phone] () Date:8674-57-13VV [address] [place] [address]OJ: 09/28/2018 Secondary NOT GIVENUNK [place] Insurance:SELF PAY [facility] Number: Effective Repository Date:2018-09-28 09/25/2018 CARI Hodges Primary MATY [place] [id number] Insurance:MEDICAL TROYERDOB: [facility] [id number] Number: Repository [address]Wrz: 330 [id number] [phone] () Date:6492-20-81JC [address] [address]NV: 09/25/2018 Secondary NOT GIVENUNK [place] Insurance:SELF PAY [facility] Number: Effective Repository Date:2018-09-25 09/21/2018 CARI Hodges Primary MATY [place] [id number] Insurance:MEDICAL TROYERDOB: [facility] [id number] Number: Repository [address]Hdj: 330 [id number] [phone] (HP) Date:7813-17-63WU [address] [place] [address]KQ: 09/21/2018 Secondary NOT GIVENUNK [place] Insurance:SELF PAY [facility] Number: Effective Repository Date:2018-09-21 09/17/2018 CARI Hodges Primary MATY Ravi [id number] Insurance:MEDICAL TROYERDOB: [facility] [id number] Number: Repository [address]Rdk: 330 [id number] [phone] (HP) Date:5329-55-85MY [address] [address]LR: 09/17/2018 Secondary NOT GIVENUNK [place] Insurance:SELF PAY [facility] Number: Effective Repository Date:2018-09-17 09/14/2018 CARI Hodges Primary MATY Ravi [id number] Insurance:MEDICAL TROYERDOB: [facility] [id number] Number: Repository [address]Xte: 330 [id number] [phone] (HP) Date:8828-12-61GD [address] [address]SI: 09/14/2018 Secondary NOT GIVENUNK [place] Insurance:SELF PAY [facility] Number: Effective Repository Date:2018-09-14 09/10/2018 CARI Hodges Primary MATY Ravi [id number] Insurance:MEDICAL TROYERDOB: [facility] [id number] Number: Repository [address]Cmd: 330 [id number] [phone] (HP) Date:2317-91-16HE [address] [address]FL: 09/10/2018 Secondary NOT GIVENUNK [place] Insurance:SELF PAY [facility] Number: Effective Repository Date:2018-09-10 09/08/2018 CARI Ravi [id number] Insurance:MEDICAL TROYERDOB: [facility] [id number], [place] Number: Repository [address]Lzu: 330 [id number] [phone] (HP) Date:9732-99-15HZ [address] [address]HN: 09/08/2018 Secondary NOT GIVENUNK [place] Insurance:SELF PAY [facility] Number: Effective Repository Date:2018-09-08 09/07/2018 CARI Hodges Primary MATY Ravi [id number] Insurance:MEDICAL TROYERDOB: [facility] [id number] Number: Repository [address]Dan: 330 [id number] [phone] (HP) Date:6093-33-11IR [address] [address]BK: 09/07/2018 Secondary NOT GIVENUNK [place] Insurance:SELF PAY [facility] Number: Effective Repository Date:2018-09-07 09/04/2018 CARI Hodges Primary MATY Ravi [id number] Insurance:MEDICAL TROYERDOB: [facility] 0826[place] Number: Repository [address]Bzw: 330 [id number] [phone] (HP) Date:9271-52-39PG [address] [address]LE: 09/04/2018 Secondary NOT GIVENUNK [place] Insurance:SELF PAY [facility] Number: Effective Repository Date:2018-09-04 09/01/2018 CARI Hodges Primary MATY Ravi [id number] Insurance:MEDICAL TROYERDOB: [facility] [id number] Number: Repository [address]Euh: [phone] [id number] [phone]) Date:0773-82-41LR [address] [place] [address]VE: 09/01/2018 Secondary NOT GIVENUNK [place] Insurance:SELF PAY [facility] Number: Effective Repository Date:2018-09-01 08/14/2018 CARI Ravi [id number] Insurance:MEDICAL TROYERDOB: [facility] [id number] Number: Repository [address]Vjp: 330 [id number] [phone]) Date:5350-96-83OJ [address] [place] [address]TW: 08/14/2018 Secondary NOT GIVENUNK [place] Insurance:SELF PAY [facility] Number: Effective Repository Date:2018-08-14 08/12/2018 CARI Ravi [id number] Insurance:MEDICAL TROYERDOB: [facility] [id number] Number: Repository [address]Zkd: 330 [id number] [phone] (HP) Date:3443-22-49HA [address] [address]PB: 08/12/2018 Secondary NOT GIVENUNK [place] Insurance:SELF PAY [facility] Number: Effective Repository Date:2018-08-07 08/05/2018 CARI Ravi [id number] Insurance:MEDICAL TROYERDOB: [facility] [id number][place] Number: Repository [address]Pkp: 330 [id number] [phone] (HP) Date:6659-89-07RG [address] [address]CG: 08/05/2018 Secondary NOT GIVENUNK [place] Insurance:SELF PAY [facility] Number: Effective Repository Date:2018-08-05 03/08/2018 CARI Hodges Primary MATY Ravi [id number] Insurance:MEDICAL TROYERDOB: [facility] [id number] Number: Repository [address]Dbp: 330 [id number] [phone] () Date:8409-98-44EC [address] [address]HM: 03/08/2018 Secondary NOT GIVENUNK [place] Insurance:SELF PAY [facility] Number: Effective Repository Date:2018-03-08 [facility] [id number] Insurance:MEDICAL TROYERDOB: [facility] [id number], [place] Number: Repository [address]Edh: [phone] [id number] [phone] () Date:2609-97-67UW [address] [address]YD: 03/06/2018 Secondary NOT GIVENUNK [place] Insurance:SELF PAY [facility] Number: Effective Repository Date:2018-03-06
== END 2018-10-15 20:10 | disposition home or self-care (01) | DRG 788 ==
PROVIDERS: Admitting Provider Obstetrics & Gynecology; Referring Provider Obstetrics & Gynecology; Visit Provider Obstetrics & Gynecology
PROC: 10D00Z1 Extraction of Products of Conception, Low, Open Approach (ICD-10-PCS; CPT 59514; principal; 2018-10-14 11:45)
DX: O30.043 Twin pregnancy, dichorionic/diamniotic, third trimester (principal); Z3A.38 38 weeks gestation of pregnancy; Z37.2 Twins, both liveborn; O32.1XX2 Maternal care for breech presentation, fetus 2
CPT/HCPCS: 85025; 85027; 85610; 85730; 86850; 86900; 88307; 99218; J7120; A4216; G0378; J2405

== ENCOUNTER → 2018-11-25 18:14 | Outpatient (CLI) | payer OTHER, SELFPAY ==
[2018-10-14 11:44] VITALS: BMI 34.4
[2018-11-25 21:47] LABS: Chlamydia Trachomatis by PCR Negative (Negative); Neisserai gonorrhoeae by PCR Negative (Negative); Probe Check PASS; Sample Adequacy Control PASS; Specimen Processing Control PASS
[2018-11-28 19:53] LABS: HPV Reflexed? NOT INDICATED
== END ==
PROVIDERS: Referring Provider Obstetrics & Gynecology; Visit Provider Obstetrics & Gynecology
DX: Z12.4 Encounter for screening for malignant neoplasm of cervix (principal); Z11.3 Encounter for screening for infections with a predominantly sexual mode of transmission
CPT/HCPCS: 87491; 87591; 87624; 88175; G0145

== ENCOUNTER 2020-12-31 05:21 | Emergency (ER) | payer OTHER, SELFPAY ==
[2020-12-30 08:34] VITALS: BMI 31.1
[2020-12-31 05:22] VITALS: BP 143/89; PULSE 82; RESP 16; TEMP 35.9; O2SAT 96; BMI 32.0
[2020-12-31 05:26] VITALS: BP 143/89; PULSE 82; RESP 16; TEMP 35.9; O2SAT 96
[2020-12-31 05:45] LABS: Absolute Lymphocyte Count 1.62 X10^3/uL (0.83-4.51); Absolute Neutrophil Count 8.3 X10^3/uL (2.0-7.7); Basophil# 0.02 X10^3/uL; Basophil% 0.2 % (0-1); Eosinophil# 0.08 X10^3/uL; Eosinophils% 0.8 % (0-5); Hematocrit 40.3 % (37-47); Hemoglobin 13.3 g/dL (12.0-15.0); Lymphocyte # 1.62 X10^3/ul (4.0); Lymphocyte % 15.4 % (19-41); Mean Corpuscular Hgb 31.2 pg (27.0-32.0); Mean Corpuscular Volume 94.6 fL (81-99); Mean Platelet Vol. 9.1 fl (6.2-12.0); Monocyte# 0.52 X10^3/uL; Monocyte% 4.9 % (0-10); NRBC Flagged by Analyzer 0 % (0-5); Neutrophil # 8.27 X10^3/uL (2.7-7.7); Neutrophil % 78.4 % (47-70); Platelet Count 253 K/mm3 (150-450); RBC Distribution Width CV 12.2 % (11.6-14.6); RBC Distribution Width SD 42.7 fl (35.1-43.9); Red Blood Count 4.26 M/mm3 (4.2-5.4); White Blood Count 10.5 K/mm3 (4.4-11.0)
[2020-12-31 06:08] LABS: Anion Gap 3 (5-15); BUN 13 mg/dL (7-18); BUN/Creat Ratio 16.2 RATIO (10-20); Calcium,Total 8.7 mg/dL (8.5-10.1); Chloride 104 mmol/L (98-107); EST Glomerular Filtration Rate 90 mL/min (>60); Est Glom Filt Rate - Afr Amer 108 mL/min (>60); Estimated Creatinine Clearance 97.13 ml/min; Glucose 96 mg/dL (74-106); Potassium 3.8 mmol/L (3.5-5.1); Sodium Level 136 mmol/L (136-145)
--- NOTE | 2020-12-31 06:25 | ED.DCSUM_ITS ---
History of Present Illness Chief Complaint: Wound Narrative: Patient presenting for evaluation secondary to a facial infection. Patient reports that she had a small pustule under her lower left lip for a couple of days. She reports that 2 days ago she started to have a onset of inflammation in the area. Patient was seen at urgent care and was placed on oral Bactrim. She has had a total of 3 doses of it, and has also been doing warm compresses. Patient states however that she has had a relatively significant worsening of the swelling over the course of the last 12 hours. She denies constitutional symptoms such as fever. She denies any history of immunosuppression. Pain in the lip and chin is mild to moderate, no reports of lip or tongue swelling or any difficulty swallowing or sore throat. Patient denies any sick contacts. Review of systems otherwise negative. Past Medical History - Allergies and Home Meds Allergies/Adverse Reactions: Allergies latex Allergy (Verified 12/30/20 08:34) Rash Penicillins Allergy (Verified 12/30/20 08:34) Rash Primary Care Physician: Care Physician,No Primary [Primary Care Provider] - Prior records reviewed: Yes Past Medical History: None Lives: With Family Smoking Status: Never smoker Alcohol: None Drugs: None Review of Systems All systems negative except as indicated General: Denies: Chills, Fever, Sweats Eyes: Denies: Visual changes - bilaterally, Diplopia ENT: Denies: Rhinorrhea, Sore throat Cardiovascular: Denies: Chest pain, Palpitations Respiratory: Denies: Dyspnea, Cough, Dyspnea on exertion Gastrointestinal: Denies: Abdominal pain, Nausea, Vomiting, Diarrhea, Melena, Hematochezia Genitourinary: Denies: Dysuria, Hematuria, Frequency Musculoskeletal: Denies: Back pain, Extremity Pain Skin: Reports: Rash Neurological: Denies: Headache, Weakness, Numbness Physical Exam Vital Signs/Narrative: Vital Signs Temp Pulse Resp BP Pulse Ox 12/31/20 05:26 96.7 F L 82 16 143/89 H 96 12/31/20 05:22 96.7 F L 82 16 143/89 H 96 Inital Vital Signs reviewed: Yes General: Well nourished, Well developed, No Acute Distress Head: Normocephalic, Atraumatic Eyes: Perrl, EOMI ENT: Moist mucous membranes, - - Patient has erythema just inferior and left to the lower lip. There is induration going up into the lip and down into the chin area. No evidence of sublingual edema, submental area is soft. There is no fluctuance. No trismus. Normal intraoral exam. Neck: Supple, Nontender Cardiovascular: Regular rate, Regular rhythm Respiratory: No distress Extremities: Nontender Skin: Rash Neurological: Alert, Oriented x3 Psychological: Normal affect Diagnostic/Tx/Re-eval Laboratory Data 12/31/20 12/31/20 05:35 05:35 WBC 10.5 RBC 4.26 Hgb 13.3 Hct 40.3 MCV 94.6 MCH 31.2 MCHC 33.0 RDW Std Deviation 42.7 RDW Coeff of Mitchell 12.2 Plt Count 253 MPV 9.1 Immature Gran % (Auto) 0.300 Neut % (Auto) 78.4 H Lymph % (Auto) 15.4 L [place] % (Auto) 4.9 Eos % (Auto) 0.8 Baso % (Auto) 0.2 Absolute Neuts (auto) 8.3 H Absolute Lymphs (auto) 1.62 Nucleated RBC % 0 Sodium 136 Potassium 3.8 Chloride 104 Carbon Dioxide 29.0 Anion Gap 3 L BUN 13 Creatinine 0.80 Estim Creat Clear Calc 97.13 Est GFR (MDRD) Af Amer 108 Est GFR (MDRD) Non-Af 90 BUN/Creatinine Ratio 16.2 Glucose 96 Calcium 8.7 - Medical Decision Making Patient presented secondary to a worsening facial cellulitis. She does not have any evidence of intraoral involvement or pharyngeal involvement. No concern for Indio's angina or pharyngeal abscess of any kind. I did a bedside ultrasound on the patient, and the skin shows more cobblestoning and does not seem to show any obvious discrete evidence of fluctuance that would lend well to incision and drainage. IV was established laboratory studies were obtained. Patient does not have a leukocytosis but she does have somewhat of a neutrophilic predominance, chemistry was unremarkable. Patient was given 600 mg of IV clindamycin. Repeat evaluation showed no change in the patient's status. Patient's only really had 3 doses of her antibiotic, and she has had progression but I really would not call this a failure of outpatient management that she is really only had about 24 hours of antibiotic exposure. Had a laila discussion with patient about inpatient versus outpatient management and I do believe that she still is appropriate for trial of outpatient management. Patient will be changed over to a higher dose of clindamycin, as well as topical Bactroban ointment. She was recommended to continue doing warm compresses. I educated the patient that this still could get worse, and she may require to come into the emergency department to be admitted for a course of IV antibiotics for failure of outpatient treatment of the facial cellulitis. She voiced understanding of this and is okay with the initial disposition of discharge with both topical and oral antibiotics. Patient was discharged in stable condition. ED Disposition - Plan for ED Patient: Disposition: Home or Assisted Living Diagnosis: Facial cellulitis Instructions: ED Cellulitis, Facial Prescriptions: Clindamycin [Cleocin] 450 mg PO 4X/DAY #84 cap Prescription Printed Referrals: Laila Silva III, MD [STAFF PHYSICIAN] - 2 Days for wound check Additional Instructions: Take all of your oral antibiotic. Use the Bactroban ointment 3 times a day. Follow-up with Dr. Silva in 2 days for repeat check. Return to the emergency department for worsening symptoms
[2020-12-31] MEDS: Mupirocin Ointment 22gm Tube 1 APPLIC TOPICAL (06:37)
[2020-12-31 06:40] VITALS: BP 123/74; PULSE 72; RESP 18; O2SAT 98
--- NOTE | 2020-12-31 06:41 | ED.RN ---
THIS NURSE REVIEWED D/C INSTRUCTIONS WITH PT. PT VERBALIZED UNDERSTANDING OF INSTRUCTIONS. IV D/C. IV CATHETER INTACT. PT TOLERATED WELL. PT DENIES FURTHER NEEDS OR QUESTIONS AT THIS TIME. PT AMBULATES FROM ROOM ON OWN WITHOUT ASSISTANCE FROM STAFF
== END 2020-12-31 06:43 | disposition home or self-care (01) ==
PROVIDERS: Emergency Provider Emergency Medicine
DX: L03.211 Cellulitis of face (principal)
CPT/HCPCS: 80048; 85025; 96365; 99283; A4216

== ENCOUNTER 2021-01-01 14:27 | Inpatient (IN) | payer OTHER, SELFPAY ==
[2020-12-31 05:22] VITALS: BMI 32.0
[2021-01-01 14:29] VITALS: BP 148/70; PULSE 96; RESP 18; TEMP 36.8; O2SAT 100; BMI 30.8
--- NOTE | 2021-01-01 15:26 | CT_ITS ---
STUDY: CT FACIAL BONES WITH CONTRAST REASON FOR EXAM: Female, 30 years old. FACIAL SWELLING RADIATION DOSAGE (If Supplied By Facility): CTDIvol = ( 29.38 ) mGy, DLP = ( 1241.83 ) mGycm TECHNIQUE: The patient was scanned in a multi detector CT scanner. Transaxial imaging was performed following the intravenous administration of . Sagittal and coronal images were reconstructed. Individualized dose optimization techniques were used for this CT. COMPARISON: None. FINDINGS: There is subcutaneous edema noted anterior and along the left side of the mandible. No drainable collection is noted. Normal orbital hargrove and orbital contents. There is submental and bilateral submandibular adenopathy. Normal nasal bones and anterior nasal spine. Normal facial bones. There is no demonstrated fracture. Normal visualized paranasal sinuses. CT/Sinus/Facial Bone WITH Contras IMPRESSION: There is subcutaneous edema noted anterior and along the left side of the mandible. No drainable collection is noted. Submental and submandibular adenopathy. Electronically Signed: Pablito Carvalho DO at 17:14 EST Tel [phone], Service support ,
--- NOTE | 2021-01-01 15:27 | ED.DCSUM_ITS ---
History of Present Illness Chief Complaint: Cellulitis Informant: Patient Onset: Days Context: Gradual Onset Current Severity: Moderate Maximum Severity: Moderate Narrative: Present secondary to facial abscess. Patient states she developed a pimple-like lesion just below her left lower lip on Friday, 3 days ago. It increased in size and she was seen at urgent care. She was placed on Bactrim. She was seen in the emergency room early in the morning of the . Blood work was unremarkable and she was given a dose of IV clindamycin. She was discharged on p.o. clindamycin. Patient states after the IV antibiotics it did improve slightly, however has now significantly worsened. She denies fever or chills. Past Medical History - Allergies and Home Meds Allergies/Adverse Reactions: Allergies latex Allergy (Verified 01/01/21 14:29) Rash Penicillins Allergy (Verified 01/01/21 14:29) Rash Primary Care Physician: Care Physician,No Primary [Primary Care Provider] - Past Medical History: None Smoking Status: Never smoker Review of Systems General: Denies: Chills, Fever Eyes: Denies: Visual changes - bilaterally ENT: Denies: Bilateral ear pain Cardiovascular: Denies: Chest pain Respiratory: Denies: Dyspnea, Cough Gastrointestinal: Denies: Abdominal pain, Vomiting, Diarrhea Musculoskeletal: Denies: Extremity Pain Skin: Reports: Wounds Neurological: Denies: Headache Hematologic: Denies: Easy bruising, Easy bleeding Allergy: Denies: Uticaria Physical Exam Vital Signs/Narrative: Vital Signs Temp Pulse Resp BP Pulse Ox 01/01/21 14:29 98.2 F 96 18 148/70 H 100 Inital Vital Signs reviewed: Yes General: Well nourished, Well developed Head: Normocephalic ENT: Moist mucous membranes, - - Scabbed abscess to the left chin with surrounding edema and erythema. Intraoral examination unremarkable. No sign of Adam's angina. Cardiovascular: Regular rate, Regular rhythm, No murmurs Respiratory: No distress, CTA bilaterally Abdomen: Soft, Nontender Extremities: Nontender Skin: - - As above Neurological: Alert, Oriented x3 Psychological: Normal affect Diagnostic/Tx/Re-eval Impressions Facial/Sinus 01/01/21 15:26 IMPRESSION: There is subcutaneous edema noted anterior and along the left side of the mandible. No drainable collection is noted. Submental and submandibular adenopathy. Electronically Signed: Pablito Carvalho DO at 17:14 EST Tel [phone], Service support , 01/01/21 15:26 CT Facial [Sinus/Facial Bone WITH Contras] [CT] Stat Laboratory Results 01/01/21 01/01/21 01/01/21 15:50 15:50 15:50 WBC 8.3 RBC 4.47 Hgb 14.0 Hct 42.4 MCV 94.9 MCH 31.3 MCHC 33.0 RDW Std Deviation 42.9 RDW Coeff of Mitchell 12.3 Plt Count 299 MPV 9.1 Immature Gran % (Auto) 0.200 Neut % (Auto) 69.7 Lymph % (Auto) 23.3 [place] % (Auto) 5.4 Eos % (Auto) 1.2 Baso % (Auto) 0.2 Absolute Neuts (auto) 5.8 Absolute Lymphs (auto) 1.93 Nucleated RBC % 0 Sodium 137 Potassium 3.3 L Chloride 103 Carbon Dioxide 28.0 Anion Gap 6 BUN 13 Creatinine 0.79 Estim Creat Clear Calc 98.36 Est GFR (MDRD) Af Amer 111 Est GFR (MDRD) Non-Af 92 BUN/Creatinine Ratio 16.5 Glucose 109 H Lactic Acid 0.8 Calcium 9.4 Serum , Qual 01/01/21 15:50 WBC RBC Hgb Hct MCV MCH MCHC RDW Std Deviation RDW Coeff of Mitchell Plt Count MPV Immature Gran % (Auto) Neut % (Auto) Lymph % (Auto) [place] % (Auto) Eos % (Auto) Baso % (Auto) Absolute Neuts (auto) Absolute Lymphs (auto) Nucleated RBC % Sodium Potassium Chloride Carbon Dioxide Anion Gap BUN Creatinine Estim Creat Clear Calc Est GFR (MDRD) Af Amer Est GFR (MDRD) Non-Af BUN/Creatinine Ratio Glucose Lactic Acid Calcium Serum , Qual NEGATIVE - Medical Decision Making IV line was established. Patient declined anything for pain while here. She was given a dose of IV vancomycin. Blood work is reviewed and largely unremarkable. CT of the face with IV contrast does not reveal a focal fluid collection. Inflammatory changes are noted. Patient will be admitted for IV antibiotics. ED Disposition - Plan for ED Patient: Disposition: Home or Assisted Living Diagnosis: Facial cellulitis Referrals: Care Physician,No Primary [Primary Care Provider] -
[2021-01-01] MEDS: 0.9% Normal Saline 1,000 ML 150 ML IV (16:06)
[2021-01-01 16:11] LABS: Absolute Lymphocyte Count 1.93 X10^3/uL (0.83-4.51); Absolute Neutrophil Count 5.8 X10^3/uL (2.0-7.7); Basophil# 0.02 X10^3/uL; Basophil% 0.2 % (0-1); Eosinophils% 1.2 % (0-5); Hematocrit 42.4 % (37-47); Lymphocyte # 1.93 X10^3/ul (4.0); Lymphocyte % 23.3 % (19-41); Mean Corpuscular Hgb 31.3 pg (27.0-32.0); Mean Corpuscular Volume 94.9 fL (81-99); Mean Platelet Vol. 9.1 fl (6.2-12.0); Monocyte# 0.45 X10^3/uL; Monocyte% 5.4 % (0-10); NRBC Flagged by Analyzer 0 % (0-5); Neutrophil # 5.76 X10^3/uL (2.7-7.7); Neutrophil % 69.7 % (47-70); Platelet Count 299 K/mm3 (150-450); RBC Distribution Width CV 12.3 % (11.6-14.6); RBC Distribution Width SD 42.9 fl (35.1-43.9); Red Blood Count 4.47 M/mm3 (4.2-5.4); White Blood Count 8.3 K/mm3 (4.4-11.0)
[2021-01-01 16:30] LABS: Internal QC Validated? YES +Cl - CLEAR BKGD; Pregnancy, Serum, hCG Quali. NEGATIVE Negative
[2021-01-01 16:33] LABS: Anion Gap 6 (5-15); BUN 13 mg/dL (7-18); BUN/Creat Ratio 16.5 RATIO (10-20); Calcium,Total 9.4 mg/dL (8.5-10.1); Chloride 103 mmol/L (98-107); Creatinine, Serum 0.79 mg/dL (0.55-1.02); EST Glomerular Filtration Rate 92 mL/min (>60); Est Glom Filt Rate - Afr Amer 111 mL/min (>60); Estimated Creatinine Clearance 98.36 ml/min; Glucose 109 mg/dL (74-106); Potassium 3.3 mmol/L (3.5-5.1); Sodium Level 137 mmol/L (136-145)
[2021-01-01 16:40] LABS: Lactic Acid 0.8 mmol/L (0.4-1.9)
[2021-01-01 17:16] VITALS: PULSE 85; O2SAT 100
--- NOTE | 2021-01-01 17:49 | HP.PCM_ITS ---
<Christine Mobley CLINICAL REVIEWER - Last Filed: 01/01/21 18:07> Problem List (1) Facial cellulitis Status: Acute (2) Dichorionic diamniotic twin in third trimester Status: Resolved (3) 34 weeks gestation of Status: Resolved (4) 36 weeks gestation of Status: Resolved (5) Dichorionic diamniotic twin gestation Status: Resolved Qualifiers: Trimester: third trimester Qualified Code(s): O30.043 - Twin , dichorionic/diamniotic, third trimester History of Present Illness Date of Admission: 01/01/21 Chief Complaint: Facial abscess. The patient is a 30 year old F who presents to the Emergency Room due to left chin abscess. Patient states she had pimple on her chin below her left lower lip which she picked on Friday. She was seen at urgent care on Friday and was placed on bactrim without improvement. She returned to ER on friday and was placed on clindamycin. Today, she returns with continued worsening appearance and increased pain. She states it feels like it needs to bust open. She denies any drainage. Denies fever, chills. Denies any throat swelling. Denies other medical history. 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 Paternal History Items: - - Denies known paternal medical history including cardiac history. Review of Systems Constitutional: Denies: Chills, Fever, Weight Change HEENT: Denies: Head Aches, Sinus Congestion, Sinus Drainage Cardiovascular: Denies: Chest Pain, Palpitations Respiratory: Denies: Cough, Shortness of breath at rest, Sputum production Genitourinary: Denies: Dysuria Musculoskeletal: Denies: Joint Pain, Joint Tenderness Skin: Reports: - - right chin abscess Neurological: Denies: Numbness, Tingling, Focal weakness Psychiatric: Denies: Anxiety, Depression, Homicidal Ideations, Suicidal Ideations Hematologic/ Lymphatic: Denies: Easy Bruising, Easy Bleeding VTE Information - Inpt Only VTE Present on Admission: No VTE Mechan Device Prophylaxis: None VTE Pharm Prophylaxis ordered?: No Reason prophylaxis not ordered:: Treatment Not Indicated Patient Problems: Active and Suspected Problems (Last Reviewed 12/30/20 @ 08:35 by Marianna Gould) Facial cellulitis (Acute) - Physical Exam Vitals/I&O's: Vital Signs Temp Pulse Resp BP Pulse Ox 98.2 F 85 18 148/70 H 100 01/01/21 14:29 01/01/21 17:16 01/01/21 14:29 01/01/21 14:29 01/01/21 17:16 Oxygen Delivery Method Room Air Weight: 191 lb 2.252 oz Body Mass Index (BMI) 30.8 General: Alert, Oriented x3, Cooperative HEENT: Atraumatic, PERRLA, EOMI, Normocephalic Neck: Supple, No JVD, Negative Carotid Bruits Lungs: Clear to auscultation, Normal air movement Cardiovascular: Regular rate, No murmurs Abdomen: Bowel Sounds Present, Soft, Non Tender Extremities: No clubbing, No cyanosis, No edema, Capillary Refill Less than 3 Seconds Skin: No rashes, No breakdown, - - Left chin abscess with area of induration Musculoskeletal: No Tenderness to Palpation of Joints or Extremities Neurological: Cranial nerves II-XII grossly intact, Neuro grossly intact Psych/Mental Status: Normal Affect, Appropriate Laboratory Results 01/01/21 15:50: WBC 8.3, RBC 4.47, Hgb 14.0, Hct 42.4, MCV 94.9, MCH 31.3, MCHC 33.0, RDW Std Deviation 42.9, RDW Coeff of Mitchell 12.3, Plt Count 299, MPV 9.1, Immature Gran % (Auto) 0.200, Neut % (Auto) 69.7, Lymph % (Auto) 23.3, Bell % (Auto) 5.4, Eos % (Auto) 1.2, Baso % (Auto) 0.2, Absolute Neuts (auto) 5.8, Absolute Lymphs (auto) 1.93, Nucleated RBC % 0 01/01/21 15:50: Sodium 137, Potassium 3.3 L, Chloride 103, Carbon Dioxide 28.0, Anion Gap 6, BUN 13, Creatinine 0.79, Estim Creat Clear Calc 98.36, Est GFR (MDRD) Af Amer 111, Est GFR (MDRD) Non-Af 92, BUN/Creatinine Ratio 16.5, Glucose 109 H, Calcium 9.4 01/01/21 15:50: Lactic Acid 0.8 01/01/21 15:50: Serum , Qual NEGATIVE Current Medications Sodium Chloride () 1,000 mls @ 150 mls/hr IV .Q6H40M BAK[facility]I Last Admin: 01/01/21 16:06 Dose: 150 mls/hr Documented by: Vancomycin HCl 1,250 mg/ (Sodium Chloride) 275 mls @ 167 mls/hr IV X1 ONE Stop: 01/01/21 17:53 Last Admin: 01/01/21 16:06 Dose: 167 mls/hr Documented by: Assessment/Plan All Active Problems (Last Reviewed 12/30/20 @ 08:35 by Marianna Gould) Facial cellulitis (Acute) 34 weeks gestation of (Resolved) 36 weeks gestation of (Resolved) Dichorionic diamniotic twin gestation (Resolved) Dichorionic diamniotic twin in third trimester (Resolved) 1. Left chin cellulitis with suspected abscess- CT shows subcutaneous edema, no fluids collection. Clinically appears to have abscess. Dr. Ha consulted. PRN pain medicine. IV vanc and IV zosyn. Obtain culture if able. DVT Prophylaxis- not indicated This patient was seen by DENTON Markham under the supervision of Dr. Junior. <Telly Junior F - Last Filed: 01/01/21 18:47> History of Present Illness The patient is a 30 year old F [] Past Medical History Allergies latex Allergy (Verified 01/01/21 14:29) Rash Penicillins Allergy (Verified 01/01/21 14:29) Rash Surgical History: Surgical History (Last Reviewed 01/01/21 @ 17:58 by Christine Mobley CLINICAL REVIEWER, CLINICAL REVIEWER-C) delivery delivered O82 - Physical Exam Vitals/I&O's: Vital Signs Temp Pulse Resp BP Pulse Ox 98.2 F 89 16 125/74 H 98 01/01/21 18:13 01/01/21 18:13 01/01/21 18:13 01/01/21 18:13 01/01/21 18:13 Oxygen Delivery Method Room Air Weight: 191 lb 2.252 oz Body Mass Index (BMI) 30.8 Laboratory Results 01/01/21 15:50: WBC 8.3, RBC 4.47, Hgb 14.0, Hct 42.4, MCV 94.9, MCH 31.3, MCHC 33.0, RDW Std Deviation 42.9, RDW Coeff of Mitchell 12.3, Plt Count 299, MPV 9.1, Immature Gran % (Auto) 0.200, Neut % (Auto) 69.7, Lymph % (Auto) 23.3, Bell % (Auto) 5.4, Eos % (Auto) 1.2, Baso % (Auto) 0.2, Absolute Neuts (auto) 5.8, Absolute Lymphs (auto) 1.93, Nucleated RBC % 0 01/01/21 15:50: Sodium 137, Potassium 3.3 L, Chloride 103, Carbon Dioxide 28.0, Anion Gap 6, BUN 13, Creatinine 0.79, Estim Creat Clear Calc 98.36, Est GFR (MDRD) Af Amer 111, Est GFR (MDRD) Non-Af 92, BUN/Creatinine Ratio 16.5, Glucose 109 H, Calcium 9.4 01/01/21 15:50: Lactic Acid 0.8 01/01/21 15:50: Serum , Qual NEGATIVE Current Medications Sodium Chloride () 1,000 mls @ 150 mls/hr IV .Q6H40M BAKARI Last Admin: 01/01/21 16:06 Dose: 150 mls/hr Documented by: Addendum: Dr. Junior I personally examined the patient and reviewed the chart. I agree with the above. 30-year-old female presents to the hospital with a left chin abscess which failed outpatient management. She went to an urgent care on Friday and was given Bactrim. She took Bactrim for 3 days and presented to the ER on Friday with little to no improvement and maybe even a slight worsening. She was given a dose of IV antibiotics and sent home on clindamycin. Since then it has worsened even more and is now significantly tender. CT scan of her face did not show a clear abscess though she does have significant edema. She did have a scab where it had busted open and drained serous and purulent fluid per report. I was able to unroofed this and get a culture. We will continue with vancomycin and Zosyn and will consult surgery for I&D in the OR possibly. Inpatient E&M: 84411 Init Hosp L2
[2021-01-01] MEDS: Ondansetron 4 MG/2 ML Vial IV (17:58)
[2021-01-01] MEDS: Morphine 4 MG/ML Syringe IV (17:58)
[2021-01-01 18:13] VITALS: BP 125/74; PULSE 89; RESP 16; TEMP 36.8; O2SAT 98
[2021-01-01 19:07] VITALS: BMI 30.9
[2021-01-01 19:15] VITALS: BMI 31.0
--- NOTE | 2021-01-01 19:41 | PCM.RX.CS ---
Consult Pharmacy has been consulted to manage selected antiobiotic: Vancomycin Type of Consult: New start Labs: Sodium 137 mmol/L (136-145) 01/01/21 15:50 Potassium 3.3 mmol/L (3.5-5.1) L 01/01/21 15:50 Chloride 103 mmol/L (98-107) 01/01/21 15:50 Carbon Dioxide 28.0 mmol/L (21.0-32.0) 01/01/21 15:50 Anion Gap 6 (5-15) 01/01/21 15:50 BUN 13 mg/dL (7-18) 01/01/21 15:50 Creatinine 0.79 mg/dL (0.55-1.02) 01/01/21 15:50 Est GFR (MDRD) Af Amer 111 mL/min (>60) 01/01/21 15:50 Est GFR (MDRD) Non-Af 92 mL/min (>60) 01/01/21 15:50 BUN/Creatinine Ratio 16.5 RATIO (10-20) 01/01/21 15:50 Glucose 109 mg/dL (74-106) H 01/01/21 15:50 Weight used for dosin kg Estimated Creatinine Clearance: 98 Goal Trough: 15-20 mcg/mL Pharmacy Plan for Drug Dosing: Initial dose 1250mg IV x1 in ED, 1750mg IV q12h per policy with trough prior to 4th dose. Pharmacy Service will continue to monitor and adjust dosing as required. Follow-Up Labs: Trough Vancomycin - 01/03 @ [id number]
[2021-01-01] MEDS: Acetaminophen 325 MG Tablet 650 MG PO (20:05)
[2021-01-01 20:08] VITALS: BP 116/69; PULSE 88; RESP 16; TEMP 37.1; O2SAT 98
[2021-01-02] MEDS: oxyCODONE 5 MG Tablet PO (04:15)
[2021-01-02 04:17] VITALS: BP 96/56; PULSE 69; RESP 16; TEMP 36.5; O2SAT 100
[2021-01-02 06:41] LABS: Absolute Lymphocyte Count 3.67 X10^3/uL (0.83-4.51); Absolute Neutrophil Count 4.5 X10^3/uL (2.0-7.7); Basophil# 0.04 X10^3/uL; Basophil% 0.5 % (0-1); Eosinophil# 0.03 X10^3/uL; Eosinophils% 0.3 % (0-5); Hematocrit 39.2 % (37-47); Lymphocyte # 3.67 X10^3/ul (4.0); Lymphocyte % 41.6 % (19-41); Mean Corp Hgb Conc 33.2 g/dL (32-36); Mean Corpuscular Hgb 31.1 pg (27.0-32.0); Mean Corpuscular Volume 93.8 fL (81-99); Mean Platelet Vol. 9.6 fl (6.2-12.0); Monocyte# 0.56 X10^3/uL; Monocyte% 6.3 % (0-10); NRBC Flagged by Analyzer 0 % (0-5); Neutrophil # 4.51 X10^3/uL (2.7-7.7); Neutrophil % 51.1 % (47-70); Platelet Count 317 K/mm3 (150-450); RBC Distribution Width CV 12.2 % (11.6-14.6); RBC Distribution Width SD 42.3 fl (35.1-43.9); Red Blood Count 4.18 M/mm3 (4.2-5.4); White Blood Count 8.8 K/mm3 (4.4-11.0)
[2021-01-02 07:06] LABS: Anion Gap 7 (5-15); BUN 16 mg/dL (7-18); BUN/Creat Ratio 19.6 RATIO (10-20); Calcium,Total 8.6 mg/dL (8.5-10.1); Chloride 109 mmol/L (98-107); Creatinine, Serum 0.82 mg/dL (0.55-1.02); EST Glomerular Filtration Rate 88 mL/min (>60); Est Glom Filt Rate - Afr Amer 107 mL/min (>60); Estimated Creatinine Clearance 94.77 ml/min; Glucose 99 mg/dL (74-106); Sodium Level 140 mmol/L (136-145)
[2021-01-02 09:38] VITALS: BP 91/50; PULSE 83; RESP 16; TEMP 36.7; O2SAT 99
--- NOTE | 2021-01-02 10:05 | CASEMGMT ---
RN RAUL Face to Face with patient for initial transition planning/care coordination assessment. RN CM introduced self and role at [facility]. Patient lying in bed, alert and oriented. Patient willing to participate in assessment and is able to answer all questions appropriately. Care providers, pharmacy, and demographics verified. Patient wishes to discharge home, denies need for home health at this time. Patient states she has no further needs or concerns at this time. CM to follow for discharge planning needs that may arise. PCP: No PCP, list provided Specialists: Romeo COCHRAN Preferred Pharmacy: [facility] Insurance: MMO Prescription Benefit: yes Living Will/HPOA: none LNOK: Living Arrangements: Patient lives with patient in a 2 story home with bed and bath on the first floor. Patient states she is independent at home. Transportation: self/ DME/HHC: Patient denies DME or previous HHC. Disposition Plan: Patient to discharge home with family support and follow-up plans in place. Jazmin MARIN, RN, CM
--- NOTE | 2021-01-02 10:51 | PN_ITS ---
<Christine Mobley COUNTER STACKER - Last Filed: 01/02/21 10:54> Patient Problems: Active and Suspected Problems (Last Reviewed 12/30/20 @ 08:35 by Marianna barker) Facial cellulitis (Acute) Subjective: Patient seen and examined. Feels right howell redness has slightly improved. Pain controlled at this time. Patient states site has been oozing. - Physical Exam Vitals/I&O's: Vital Signs Temp Pulse Resp BP Pulse Ox 98.1 F 83 16 91/50 L 99 01/02/21 09:38 01/02/21 09:38 01/02/21 09:38 01/02/21 09:38 01/02/21 09:38 Oxygen Delivery Method Room Air Weight: 191 lb 14.4 oz Body Mass Index (BMI) 30.9 Intake and Output for Last 24 Hours 12/31/20 01/01/21 01/02/21 23:59 23:59 23:59 Intake Total 375 / 375 1635 / 1635 Balance 375 / 375 1635 / 1635 General: Alert, Oriented x3, Cooperative HEENT: Atraumatic, PERRLA, EOMI, Normocephalic Neck: Supple, No JVD, Negative Carotid Bruits Lungs: Clear to auscultation, Normal air movement Cardiovascular: Regular rate, No murmurs Abdomen: Bowel Sounds Present, Soft, Non Tender Extremities: No edema, Capillary Refill Less than 3 Seconds Skin: No rashes, No breakdown, - - Left chin abscess with area of induration Musculoskeletal: No Tenderness to Palpation of Joints or Extremities Neurological: Cranial nerves II-XII grossly intact, Neuro grossly intact Psych/Mental Status: Normal Affect, Appropriate Laboratory Results 01/01/21 15:50: WBC 8.3, RBC 4.47, Hgb 14.0, Hct 42.4, MCV 94.9, MCH 31.3, MCHC 33.0, RDW Std Deviation 42.9, RDW Coeff of Mitchell 12.3, Plt Count 299, MPV 9.1, Immature Gran % (Auto) 0.200, Neut % (Auto) 69.7, Lymph % (Auto) 23.3, [place] % (Auto) 5.4, Eos % (Auto) 1.2, Baso % (Auto) 0.2, Absolute Neuts (auto) 5.8, Absolute Lymphs (auto) 1.93, Nucleated RBC % 0 01/01/21 15:50: Sodium 137, Potassium 3.3 L, Chloride 103, Carbon Dioxide 28.0, Anion Gap 6, BUN 13, Creatinine 0.79, Estim Creat Clear Calc 98.36, Est GFR (MDRD) Af Amer 111, Est GFR (MDRD) Non-Af 92, BUN/Creatinine Ratio 16.5, Glucose 109 H, Calcium 9.4 01/01/21 15:50: Lactic Acid 0.8 01/01/21 15:50: Serum , Qual NEGATIVE 01/02/21 06:10: WBC 8.8, RBC 4.18 L, Hgb 13.0, Hct 39.2, MCV 93.8, MCH 31.1, MCHC 33.2, RDW Std Deviation 42.3, RDW Coeff of Mitchell 12.2, Plt Count 317, MPV 9.6, Immature Gran % (Auto) 0.200, Neut % (Auto) 51.1, Lymph % (Auto) 41.6 H, [place] % (Auto) 6.3, Eos % (Auto) 0.3, Baso % (Auto) 0.5, Absolute Neuts (auto) 4 .5, Absolute Lymphs (auto) 3.67, Nucleated RBC % 0 01/02/21 06:10: Sodium 140, Potassium 4.0, Chloride 109 H, Carbon Dioxide 24.0, Anion Gap 7, BUN 16, Creatinine 0.82, Estim Creat Clear Calc 94.77, Est GFR (MDRD) Af Amer 107, Est GFR (MDRD) Non-Af 88, BUN/Creatinine Ratio 19.6, Glucose 99, Calcium 8.6 Current Medications Acetaminophen (Acetaminophen 325 Mg Tablet) 650 mg PO Q6H PRN PRN PRN Reason: Pain Score 1-10/Temp > 100.7 F Last Admin: 01/01/21 20:05 Dose: 650 mg Documented by: Vancomycin IV Pharmacy to Dose (1 ea/ Sodium Chloride) 500 mls @ 250 mls/hr IV X1 PRN; Protocol PRN Reason: Rx to Dose Cefepime HCl 2 gm/ Sodium (Chloride) 100 mls @ 200 mls/hr IV Q24 BAKARI Last Infusion: 01/02/21 10:09 Dose: Infused Documented by: Vancomycin HCl 1,750 mg/ (Sodium Chloride) 535 mls @ 250 mls/hr IV Q12H BAKARI Last Infusion: 01/02/21 06:20 Dose: Infused Documented by: Melatonin (Melatonin 3 Mg Tablet) 3 mg PO QHS PRN PRN PRN Reason: INSOMNIA Morphine Sulfate (Morphine 2 Mg/Ml Syringe) 2 mg IV Q3H PRN PRN PRN Reason: Pain Score 6-10 Ondansetron HCl (Ondansetron 4 Mg/2 Ml Vial) 4 mg IV Q8H PRN PRN PRN Reason: NAUSEA/VOMITING Oxycodone HCl (Oxycodone 5 Mg Tablet) 5 mg PO Q6H PRN PRN PRN Reason: Pain Score 4-10 Last Admin: 01/02/21 04:15 Dose: 5 mg Documented by: Medical Necessity - Tobacco Use Smoking Status: Never smoker Assessment/Plan All Active Problems (Last Reviewed 12/30/20 @ 08:35 by Marianna Gould) Facial cellulitis (Acute) 34 weeks gestation of (Resolved) 36 weeks gestation of (Resolved) Dichorionic diamniotic twin gestation (Resolved) Dichorionic diamniotic twin in third trimester (Resolved) 1. Left chin cellulitis with abscess- CT shows subcutaneous edema, no fluids collection. Clinically appears to have abscess. Dr. Ha consulted. PRN pain medicine. IV vanc and IV cefepime. Cultures pending. DVT Prophylaxis- not indicated This patient was seen by DENTON Markham under the supervision of Dr. Terry. <Isaiah Terry - Last Filed: 01/02/21 15:24> Subjective: Chin now starting to ooze. Swelling overall improved. - Physical Exam Vitals/I&O's: Vital Signs Temp Pulse Resp BP Pulse Ox 36.8 C 78 16 108/73 98 01/02/21 14:58 01/02/21 14:58 01/02/21 14:58 01/02/21 14:58 01/02/21 14:58 Oxygen Delivery Method Room Air Weight: 87.044 kg Body Mass Index (BMI) 30.9 Intake and Output for Last 24 Hours 12/31/20 01/01/21 01/02/21 23:59 23:59 23:59 Intake Total 375 / 375 2435 / 2435 Balance 375 / 375 2435 / 2435 General: Alert, Cooperative HEENT: Atraumatic, Normocephalic Skin: - - Erythema over the chin primarily on the left extending up into her lip. Some crusting and some oozing. Noted. No fluctuance. Psych/Mental Status: Normal Affect, Appropriate Microbiology Past 72 Hours 01/01/21 Unknown Skin - Aerobic Swab Gram Stain - Final 01/01/21 Unknown Skin - Aerobic Swab Wound Culture - Preliminary Mixed Gram Positive Organisms Laboratory Results 01/01/21 15:50: WBC 8.3, RBC 4.47, Hgb 14.0, Hct 42.4, MCV 94.9, MCH 31.3, MCHC 33.0, RDW Std Deviation 42.9, RDW Coeff of Mitchell 12.3, Plt Count 299, MPV 9.1, Immature Gran % (Auto) 0.200, Neut % (Auto) 69.7, Lymph % (Auto) 23.3, [place] % (Auto) 5.4, Eos % (Auto) 1.2, Baso % (Auto) 0.2, Absolute Neuts (auto) 5.8, Absolute Lymphs (auto) 1.93, Nucleated RBC % 0 01/01/21 15:50: Sodium 137, Potassium 3.3 L, Chloride 103, Carbon Dioxide 28.0, Anion Gap 6, BUN 13, Creatinine 0.79, Estim Creat Clear Calc 98.36, Est GFR (MDRD) Af Amer 111, Est GFR (MDRD) Non-Af 92, BUN/Creatinine Ratio 16.5, Glucose 109 H, Calcium 9.4 01/01/21 15:50: Lactic Acid 0.8 01/01/21 15:50: Serum , Qual NEGATIVE 01/02/21 06:10: WBC 8.8, RBC 4.18 L, Hgb 13.0, Hct 39.2, MCV 93.8, MCH 31.1, MCHC 33.2, RDW Std Deviation 42.3, RDW Coeff of Mitchell 12.2, Plt Count 317, MPV 9.6, Immature Gran % (Auto) 0.200, Neut % (Auto) 51.1, Lymph % (Auto) 41.6 H, [place] % (Auto) 6.3, Eos % (Auto) 0.3, Baso % (Auto) 0.5, Absolute Neuts (auto) 4.5, Absolute Lymphs (auto) 3.67, Nucleated RBC % 0 01/02/21 06:10: Sodium 140, Potassium 4.0, Chloride 109 H, Carbon Dioxide 24.0, Anion Gap 7, BUN 16, Creatinine 0.82, Estim Creat Clear Calc 94.77, Est GFR (MDRD) Af Amer 107, Est GFR (MDRD) Non-Af 88, BUN/Creatinine Ratio 19.6, Glucose 99, Calcium 8.6 Current Medications Acetaminophen (Acetaminophen 325 Mg Tablet) 650 mg PO Q6H PRN PRN PRN Reason: Pain Score 1-10/Temp > 100.7 F Last Admin: 01/02/21 15:01 Dose: 650 mg Documented by: Vancomycin IV Pharmacy to Dose (1 ea/ Sodium Chloride) 500 mls @ 250 mls/hr IV X1 PRN; Protocol PRN Reason: Rx to Dose Cefepime HCl 2 gm/ Sodium (Chloride) 100 mls @ 200 mls/hr IV Q24 [facility] Last Infusion: 01/02/21 10:09 Dose: Infused Documented by: Vancomycin HCl 1,750 mg/ (Sodium Chloride) 535 mls @ 250 mls/hr IV Q12H [facility] Last Infusion: 01/02/21 06:20 Dose: Infused Documented by: Melatonin (Melatonin 3 Mg Tablet) 3 mg PO QHS PRN PRN PRN Reason: INSOMNIA Morphine Sulfate (Morphine 2 Mg/Ml Syringe) 2 mg IV Q3H PRN PRN PRN Reason: Pain Score 6-10 Ondansetron HCl (Ondansetron 4 Mg/2 Ml Vial) 4 mg IV Q8H PRN PRN PRN Reason: NAUSEA/VOMITING Oxycodone HCl (Oxycodone 5 Mg Tablet) 5 mg PO Q6H PRN PRN PRN Reason: Pain Score 4-10 Last Admin: 01/02/21 04:15 Dose: 5 mg Documented by: Assessment/Plan Patient seen and examined independently. Data reviewed. I agree with the above note by the nurse practitioner. 1. Left howell cellulitis: Purulence. Continue with vancomycin. Likelihood of this being out gram-negative is low so we will discontinue cefepime. Inpatient E&M: [id number] [facility] Hosp L2
[2021-01-02 14:58] VITALS: BP 108/73; PULSE 78; RESP 16; TEMP 36.8; O2SAT 98
[2021-01-02] MEDS: Acetaminophen 325 MG Tablet 650 MG PO ×2 (15:01→21:33)
--- NOTE | 2021-01-02 16:10 | CON.PCM_ITS ---
Reason for Consult Date of Consultation: 01/02/21 Reason for Consultation: Abscess left chin and lower lip. REFERRING PHYSICIAN: Dr. Junior. CONDUIT MECHANIC: Dr. Ha. History of Present Illness: The patient is a 30 year old F who was admitted for a left chin and lower lip abscess. Patient states she had a blemish on her left chin below her left lower lip which she picked on 12/29/20. She was seen at urgent care on 12/30/20, and was placed on Bactrim without improvement and was then placed on Clindamycin. This prompted her visit to the ED for increasing redness and pain and swelling. She was started on Vancomycin and Cefepime. She denies any drainage. Denies fever, chills. Denies any throat swelling. CT was done which showed there is subcutaneous edema noted anterior and along the left side of the mandible. No drainable collection is noted. Submental and submandibular adenopathy. I was asked to evaluate this patient for surgical options for treatment. Past Medical History Allergies latex Allergy (Verified 01/01/21 14:29) Rash Penicillins Allergy (Verified 01/01/21 14:29) Rash Home Medications: Ambulatory Orders Medication Instructions Recorded norgestimate 0.25 mg-ethinyl 1 tab PO DAILY 12/30/20 estradiol 35 mcg tablet Mupirocin [Bactroban] 1 applic TOPICAL BID 01/01/21 Naproxen Sodium [Aleve] 440 mg PO DAILY PRN PRN 01/01/21 Smz/Tmp Ds [Bactrim Ds] 1 tab PO BID #7 tab 01/04/21 Surgical History: Surgical History (Last Reviewed 01/01/21 @ 17:58 by Christine Mobley NP, TRANSMISSION DESIGN ENGINEER-C) delivery delivered O82 Psychiatric History: No pertinent psych hx 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 Paternal History Items: - - Denies known paternal medical history including cardiac history. Review of Systems Comment: Constitutional: Denies: Chills, Fever, Weight Change. HEENT: Denies: Head Aches, Sinus Congestion, Sinus Drainage. Cardiovascular: Denies: Chest Pain, Palpitations. Respiratory: Denies: Cough, Shortness of breath at rest, Sputum production. Genitourinary: Denies: Dysuria. Musculoskeletal: Denies: [place] int Pain, Joint Tenderness. Skin: Reports: - - right chin abscess. Neurological: Denies: Numbness, Tingling, Focal weakness. Psychiatric: Denies: Anxiety, Depression, Homicidal Ideations, Suicidal Ideations. Hematologic/ Lymphatic: Denies: Easy Bruising, Easy Bleeding Patient Problems: Active and Suspected Problems (Last Reviewed 12/30/20 @ 08:35 by Marianna Gould) Facial cellulitis (Acute) - Physical Exam Vitals/I&O's: General: Alert, Oriented x3, Cooperative HEENT: PERRLA, EOMI. On her left chin and lower lip area is an area of redness and induration and some non-purulent weeping in the central aspect. Measures 3 x 3 cm. Tender to palpation. No fluctuance. No purulent drainage. Neck: Supple, Nontender. No cervical adenopathy. Lungs: Clear to auscultation, Normal air movement Cardiovascular: Regular rate, No murmurs Abdomen: Bowel Sounds Present, Soft, Non Tender Extremities: No clubbing, No cyanosis, No edema, Capillary Refill Less than 3 Seconds Skin: No rashes, No breakdown, - - Left chin abscess with area of induration Musculoskeletal: No Tenderness to Palpation of Joints or Extremities Neurological: Cranial nerves II-XII grossly intact, Neuro grossly intact Psych/Mental Status: Normal Affect, Appropriate Vital Signs Temp Pulse Resp BP Pulse Ox 98.3 F 78 16 108/73 98 01/02/21 14:58 01/02/21 14:58 01/02/21 14:58 01/02/21 14:58 01/02/21 14:58 Oxygen Delivery Method Room Air Weight: 191 lb 14.4 oz Body Mass Index (BMI) 30.9 Intake and Output for Last 24 Hours 12/31/20 01/01/21 01/02/21 23:59 23:59 23:59 Intake Total 375 / 375 2435 / 2435 Balance 375 / 375 2435 / 2435 Microbiology Past 72 Hours 01/01/21 Unknown Skin - Aerobic Swab Gram Stain - Final 01/01/21 Unknown Skin - Aerobic Swab Wound Culture - Preliminary Mixed Gram Positive Organisms Laboratory Results 01/01/21 15:50: WBC 8.3, RBC 4.47, Hgb 14.0, Hct 42.4, MCV 94.9, MCH 31.3, MCHC 33.0, RDW Std Deviation 42.9, RDW Coeff of Mitchell 12.3, Plt Count 299, MPV 9.1, Immature Gran % (Auto) 0.200, Neut % (Auto) 69.7, Lymph % (Auto) 23.3, [place] % (Auto) 5.4, Eos % (Auto) 1.2, Baso % (Auto) 0.2, Absolute Neuts (auto) 5.8, Absolute Lymphs (auto) 1.93, Nucleated RBC % 0 01/01/21 15:50: Sodium 137, Potassium 3.3 L, Chloride 103, Carbon Dioxide 28.0, Anion Gap 6, BUN 13, Creatinine 0.79, Estim Creat Clear Calc 98.36, Est GFR (MDRD) Af Amer 111, Est GFR (MDRD) Non-Af 92, BUN/Creatinine Ratio 16.5, Glucose 109 H, Calcium 9.4 01/01/21 15:50: Lactic Acid 0.8 01/01/21 15:50: Serum , Qual NEGATIVE 01/02/21 06:10: WBC 8.8, RBC 4.18 L, Hgb 13.0, Hct 39.2, MCV 93.8, MCH 31.1, MCHC 33.2, RDW Std Deviation 42.3, RDW Coeff of [place] 12.2, Plt Count 317, MPV 9.6, Immature Gran % (Auto) 0.200, Neut % (Auto) 51.1, Lymph % (Auto) 41.6 H, [place] % (Auto) 6.3, Eos % (Auto) 0.3, Baso % (Auto) 0.5, Absolute Neuts (auto) 4.5, Absolute Lymphs (auto) 3.67, Nucleated RBC % 0 01/02/21 06:10: Sodium 140, Potassium 4.0, Chloride 109 H, Carbon Dioxide 24.0, Anion Gap 7, BUN 16, Creatinine 0.82, Estim Creat Clear Calc 94.77, Est GFR (MDRD) Af Amer 107, Est GFR (MDRD) Non-Af 88, BUN/Creatinine Ratio 19.6, Glucose 99, Calcium 8.6 Diagnostic Data Facial/Sinus 01/01/21 15:26 IMPRESSION: There is subcutaneous edema noted anterior and along the left side of the mandible. No drainable collection is noted. Submental and submandibular adenopathy. Electronically Signed: Pablito DO Deven at 17:14 EST Tel [phone], Service support , Current Medications Acetaminophen (Acetaminophen 325 Mg Tablet) 650 mg PO Q6H PRN PRN PRN Reason: Pain Score 1-10/Temp > 100.7 F Last Admin: 01/02/21 15:01 Dose: 650 mg Documented by: Vancomycin IV Pharmacy to Dose (1 ea/ Sodium Chloride) 500 mls @ 250 mls/hr IV X1 PRN; Protocol PRN Reason: Rx to Dose Vancomycin HCl 1,750 mg/ (Sodium Chloride) 535 mls @ 250 mls/hr IV Q12H BAKARI Last Infusion: 01/02/21 06:20 Dose: Infused Documented by: Melatonin (Melatonin 3 Mg Tablet) 3 mg PO QHS PRN PRN PRN Reason: INSOMNIA Ondansetron HCl (Ondansetron 4 Mg/2 Ml Vial) 4 mg IV Q8H PRN PRN PRN Reason: NAUSEA/VOMITING Oxycodone HCl (Oxycodone 5 Mg Tablet) 5 mg PO Q6H PRN PRN PRN Reason: Pain Score 4-5 Last Admin: 01/02/21 04:15 Dose: 5 mg Documented by: Oxycodone HCl (Oxycodone 5 Mg Tablet) 10 mg PO Q6H PRN PRN PRN Reason: Pain Score 6-10 Assessment/Plan All Active Problems (Last Reviewed 12/30/20 @ 08:35 by Marianna Gould) Abscess of chin (Acute) Facial cellulitis (Acute) 34 weeks gestation of (Resolved) 36 weeks gestation of (Resolved) Dichorionic diamniotic twin gestation (Resolved) Dichorionic diamniotic twin in third trimester (Resolved) Left chin and lower lip abscess. Continue Vancomycin. The Cefepime has been stopped. Patient has an abscess with surrounding induration which hasn't resolved with IV antibiotics. Recommend operative intervention with incision and drainage and excisional debridement of the abscess. Anticipate extension down to the underlying muscle. Will have a wound after surgery and will start wound care with Silver dressing changes daily. Would send tissue to Pathology for analysis to rule out carcinoma and to Microbiology for culture. A positive culture will necessitate antibiotic therapy. After discharge will followup in the office to monitor the healing. If there is a plateau in the healing process or if a scar contour deformity develops, then can proceed with delayed closure with local skin flaps reconstruction. Patient is aware that there will be an open wound after the surgery. She voices understanding. Will plan on surgery tomorrow under general anesthesia. With the surgery, should be able to discharge her on oral antibiotics. But depending on the sensitivity short term IV antibiotics may be necessary with the use of a PICC line. Patient was informed of the risks and complications of the procedure including alternatives to surgery. These were discussed with the patient personally. Patient voices understanding and wishes to proceed. I will see her again in the morning before surgery. If improvement is noted, can hold off on the surgery and see if better demarcation develops. She would still need surgery but the surgical wound may be smaller if the surrounding demarcation improves in the meantime. Patient is aware of that possibility and voices understanding. Procedure Criteria Procedure Type: Elective COVID Risk Discussion: The surgeon/proceduralist and patient have discussed in detail the risk of exposure to and/or potential harm posed by the COVID-19 virus with having a surgery/procedure at this time versus the risk of delaying the surgery/procedure. It is not possible to know either the risk of delaying the surgery or procedure or chance of getting an infection with perfect accuracy, but a joint decision was made between the patient and the surgeon/proceduralist to proceed at this time with the scheduled surgery/procedure as indicated on the consent form. Inpatient E&M: 07055 Init Hosp L2 - ICD-10 - L02.01
[2021-01-02] MEDS: 0.9% Saline Lock 10 ML Syringe IV (20:30)
[2021-01-02 20:58] VITALS: BP 116/73; PULSE 82; RESP 16; TEMP 37.2; O2SAT 99
[2021-01-03 02:58] VITALS: BP 106/61; PULSE 77; RESP 16; TEMP 36.9; O2SAT 100
[2021-01-03] MEDS: 0.9% Saline Lock 10 ML Syringe IV ×3 (04:00→17:55)
[2021-01-03 04:02] LABS: Vancomycin, Trough Level 11.3 ug/mL (5.0-15.0)
--- NOTE | 2021-01-03 04:12 | PCM.RX.CS ---
Consult Pharmacy has been consulted to manage selected antiobiotic: Vancomycin Type of Consult: Follow-up Labs: Sodium 140 mmol/L (136-145) 01/02/21 06:10 Potassium 4.0 mmol/L (3.5-5.1) 01/02/21 06:10 Chloride 109 mmol/L (98-107) H 01/02/21 06:10 Carbon Dioxide 24.0 mmol/L (21.0-32.0) 01/02/21 06:10 Anion Gap 7 (5-15) 01/02/21 06:10 BUN 16 mg/dL (7-18) 01/02/21 06:10 Creatinine 0.82 mg/dL (0.55-1.02) 01/02/21 06:10 Est GFR (MDRD) Af Amer 107 mL/min (>60) 01/02/21 06:10 Est GFR (MDRD) Non-Af 88 mL/min (>60) 01/02/21 06:10 BUN/Creatinine Ratio 19.6 RATIO (10-20) 01/02/21 06:10 Glucose 99 mg/dL (74-106) 01/02/21 06:10 Vancomycin Trough 11.3 ug/mL (5.0-15.0) 01/03/21 03:20 Microbiology: Microbiology 01/01/21 15:50 Blood Culture (Wb) - Anticubital Right Blood Culture - Preliminary 01/02/21 19:00 Mucosa - Nose SARS-CoV-2 Antigen (Rapid) - Final 01/01/21 Unknown Skin - Aerobic Swab Gram Stain - Final 01/01/21 Unknown Skin - Aerobic Swab Wound Culture - Preliminary Mixed Gram Positive Organisms Goal Trough: 15-20 mcg/mL Pharmacy Plan for Drug Dosing: Pharmacy Service will continue to monitor and adjust dosing as required. TROUGH 11.3 INCREASE TO 2000 Q12H Follow-Up Labs: Trough Vancomycin Labs to be done on [date and time ordered]: 01/05 @ 1136
[2021-01-03] MEDS: oxyCODONE 5 MG Tablet PO (04:28)
[2021-01-03 08:15] VITALS: BP 99/58; PULSE 67; PULSE 80; RESP 18; TEMP 36.8; O2SAT 95
--- NOTE | 2021-01-03 09:49 | PCM.PN.SRG ---
Patient Problems: Active and Suspected Problems (Last Reviewed 12/30/20 @ 08:35 by Marianna Gould) Facial cellulitis (Acute) Subjective: Patient states her chin feels less swollen. - Physical Exam Vitals/I&O's: General: Alert, Oriented x3, Cooperative HEENT: PERRLA, EOMI. On her left chin and lower lip area is an area of redness and induration that is less than yesterday. Central aspect more dry and scabby. Not as weepy. Measures 2.5 x 2 cm. Less swelling noted. Able to smile more symmetrically as compared to yesterday. Less tenderness to palpation. to palpation. No fluctuance. No purulent drainage. Neck: Supple, Nontender. No cervical adenopathy. Lungs: Clear to auscultation, Normal air movement Cardiovascular: Regular rate, No murmurs Abdomen: Bowel Sounds Present, Soft, Non Tender Extremities: No clubbing, No cyanosis, No edema, Capillary Refill Less than 3 Seconds Skin: No rashes, No breakdown, - - Left chin abscess with area of induration Musculoskeletal: No Tenderness to Palpation of Joints or Extremities Neurological: Cranial nerves II-XII grossly intact, Neuro grossly intact Psych/Mental Status: Normal Affect, Appropriate Vital Signs Temp Pulse Resp BP Pulse Ox 98.3 F 67 18 99/58 L 95 01/03/21 08:15 01/03/21 08:15 01/03/21 08:15 01/03/21 08:15 01/03/21 08:15 Oxygen Delivery Method Room Air Weight: 191 lb 14.4 oz Body Mass Index (BMI) 30.9 Intake and Output for Last 24 Hours 01/01/21 01/02/21 01/03/21 23:59 23:59 23:59 Intake Total 375 / 375 3770 / 3770 535 / 535 Balance 375 / 375 3770 / 3770 535 / 535 Microbiology Past 72 Hours 01/01/21 Unknown Skin - Aerobic Swab Gram Stain - Final 01/01/21 Unknown Skin - Aerobic Swab Wound Culture - Preliminary Staphylococcus aureus 01/01/21 15:50 Blood Culture (Wb) - Anticubital Right Blood Culture - Preliminary 01/02/21 19:00 Mucosa - Nose SARS-CoV-2 Antigen (Rapid) - Final Laboratory Results 01/03/21 03:20: Vancomycin Trough 11.3 Current Medications Acetaminophen (Acetaminophen 325 Mg Tablet) 650 mg PO Q6H PRN PRN PRN Reason: Pain Score 1-10/Temp > 100.7 F Last Admin: 01/02/21 21:33 Dose: 650 mg Documented by: Vancomycin IV Pharmacy to Dose (1 ea/ Sodium Chloride) 500 mls @ 250 mls/hr IV X1 PRN; Protocol PRN Reason: Rx to Dose Sodium Chloride () 250 mls @ 15 mls/hr IV .[id number] PRN PRN Reason: Saline Flush Sodium Chloride () 250 mls @ 15 mls/hr IV .[id number] PRN PRN Reason: Additional IVPB Infusion Vancomycin HCl 2,000 mg/ (Sodium Chloride) 540 mls @ 250 mls/hr IV Q12H BAKARI Melatonin (Melatonin 3 Mg Tablet) 3 mg PO QHS PRN PRN PRN Reason: INSOMNIA Ondansetron HCl (Ondansetron 4 Mg/2 Ml Vial) 4 mg IV Q8H PRN PRN PRN Reason: NAUSEA/VOMITING Oxycodone HCl (Oxycodone 5 Mg Tablet) 5 mg PO Q6H PRN PRN PRN Reason: Pain Score 4-5 Last Admin: 01/03/21 04:28 Dose: 5 mg Documented by: Oxycodone HCl (Oxycodone 5 Mg Tablet) 10 mg PO Q6H PRN PRN PRN Reason: Pain Score 6-10 Sodium Chloride (0.9% Saline Lock 10 Ml Syringe) 10 - 40 ml IV UD PRN PRN Reason: SALINE FLUSH Last Admin: 01/03/21 04:00 Dose: 10 ml Documented by: Medical Necessity - Tobacco Use Smoking Status: Never smoker Assessment/Plan All Active Problems (Last Reviewed 12/30/20 @ 08:35 by Marianna Gould) Abscess of chin (Acute) Facial cellulitis (Acute) 34 weeks gestation of (Resolved) 36 weeks gestation of (Resolved) Dichorionic diamniotic twin gestation (Resolved) Dichorionic diamniotic twin in third trimester (Resolved) Left chin and lower lip abscess. Continue Vancomycin. The Cefepime has been stopped. Patient has an abscess with surrounding induration which is slowly improving. Can hold off on surgery for today. Will continue to observe closely. I don't think it will resolve with antibiotics alone. But if the surrounding redness and induration continue to improve and the central area demarcates better, then the surgical debridement won't be as extensive and the wound care would be easier. Can go home on oral antibiotics, such as Doxycycline or Bactrim. Clinically this abscess consistent with MRSA. After discharge can followup in the office to monitor the resolution of the infection. If there is a plateau in the healing process, then would proceed with operative intervention with incision and drainage and excisional debridement of the abscess. If surgery performed, the patient is aware that there will be an open wound after the surgery. She voices understanding. Inpatient E&M: 65917 Subs Hosp L2 - ICD-10 - L02.01
--- NOTE | 2021-01-03 10:01 | PN_ITS ---
<Juvencio Mobleyssica MILLINERY BLOCKER - Last Filed: 01/03/21 10:16> Patient Problems: Active and Suspected Problems (Last Reviewed 12/30/20 @ 08:35 by Marianna barker) Facial cellulitis (Acute) Subjective: Patient seen and examined. Feels chin is less swollen and redness improving. Pain improved as well. Denies fever, chills. Declining surgical intervention at this time. - Physical Exam Vitals/I&O's: Vital Signs Temp Pulse Resp BP Pulse Ox 98.3 F 67 18 99/58 L 95 01/03/21 08:15 01/03/21 08:15 01/03/21 08:15 01/03/21 08:15 01/03/21 08:15 Oxygen Delivery Method Room Air Weight: 191 lb 14.4 oz Body Mass Index (BMI) 30.9 Intake and Output for Last 24 Hours 01/01/21 01/02/21 01/03/21 23:59 23:59 23:59 Intake Total 375 / 375 3770 / 3770 535 / 535 Balance 375 / 375 3770 / 3770 535 / 535 General: Alert, Oriented x3, Cooperative HEENT: Atraumatic, PERRLA, EOMI, Normocephalic Neck: Supple, No JVD, Negative Carotid Bruits Lungs: Clear to auscultation, Normal air movement Cardiovascular: Regular rate, No murmurs Abdomen: Bowel Sounds Present, Soft, Non Tender Extremities: No edema, Capillary Refill Less than 3 Seconds Skin: - - Left chin area erythema and swelling with area of scabbing/purulent drainage. Musculoskeletal: No Tenderness to Palpation of Joints or Extremities Neurological: Cranial nerves II-XII grossly intact, Neuro grossly intact Microbiology Past 72 Hours 01/01/21 Unknown Skin - Aerobic Swab Gram Stain - Final 01/01/21 Unknown Skin - Aerobic Swab Wound Culture - Preliminary Staphylococcus aureus 01/01/21 15:50 Blood Culture (Wb) - Anticubital Right Blood Culture - Preliminary 01/02/21 19:00 Mucosa - Nose SARS-CoV-2 Antigen (Rapid) - Final Laboratory Results 01/03/21 03:20: Vancomycin Trough 11.3 Current Medications Acetaminophen (Acetaminophen 325 Mg Tablet) 650 mg PO Q6H PRN PRN PRN Reason: Pain Score 1-10/Temp > 100.7 F Last Admin: 01/02/21 21:33 Dose: 650 mg Documented by: Vancomycin IV Pharmacy to Dose (1 ea/ Sodium Chloride) 500 mls @ 250 mls/hr IV X1 PRN; Protocol PRN Reason: Rx to Dose Sodium Chloride () 250 mls @ 15 mls/hr IV .[id number] PRN PRN Reason: Saline Flush Sodium Chloride () 250 mls @ 15 mls/hr IV .[id number] PRN PRN Reason: Additional IVPB Infusion Vancomycin HCl 2,000 mg/ (Sodium Chloride) 540 mls @ 250 mls/hr IV Q12H BAKARI Melatonin (Melatonin 3 Mg Tablet) 3 mg PO QHS PRN PRN PRN Reason: INSOMNIA Ondansetron HCl (Ondansetron 4 Mg/2 Ml Vial) 4 mg IV Q8H PRN PRN PRN Reason: NAUSEA/VOMITING Oxycodone HCl (Oxycodone 5 Mg Tablet) 5 mg PO Q6H PRN PRN PRN Reason: Pain Score 4-5 Last Admin: 01/03/21 04:28 Dose: 5 mg Documented by: Oxycodone HCl (Oxycodone 5 Mg Tablet) 10 mg PO Q6H PRN PRN PRN Reason: Pain Score 6-10 Sodium Chloride (0.9% Saline Lock 10 Ml Syringe) 10 - 40 ml IV UD PRN PRN Reason: SALINE FLUSH Last Admin: 01/03/21 04:00 Dose: 10 ml Documented by: Medical Necessity - Tobacco Use Smoking Status: Never smoker Assessment/Plan All Active Problems (Last Reviewed 12/30/20 @ 08:35 by Marianna Gould) Facial cellulitis (Acute) 34 weeks gestation of (Resolved) 36 weeks gestation of (Resolved) Dichorionic diamniotic twin gestation (Resolved) Dichorionic diamniotic twin in third trimester (Resolved) 1. Left chin cellulitis with probable abscess- CT shows subcutaneous edema, no fluids collection. Clinically appears to have abscess. Dr. Ha consulted. PRN pain medicine. IV vanc. Cultures pulmonary growing staph. 1/2 blood cultures preliminary growing gram-positive rods. Possible contaminant. Await final culture report. Patient declining surgical invention at this time. Will reassess in another 24 hours. DVT Prophylaxis- not indicated This patient was seen by DENTON Markham under the supervision of Dr. Terry. <Isaiah Terry - Last Filed: 01/03/21 14:15> - Physical Exam Vitals/I&O's: Vital Signs Temp Pulse Resp BP Pulse Ox 36.8 C 80 18 99/58 L 95 01/03/21 08:15 01/03/21 08:15 01/03/21 08:15 01/03/21 08:15 01/03/21 08:15 Oxygen Delivery Method Room Air Weight: 87.044 kg Body Mass Index (BMI) 30.9 Intake and Output for Last 24 Hours 01/01/21 01/02/21 01/03/21 23:59 23:59 23:59 Intake Total 375 / 375 3770 / 3770 535 / 535 Balance 375 / 375 3770 / 3770 535 / 535 General: Alert, Cooperative HEENT: Atraumatic, Normocephalic Lungs: Clear to auscultation, Normal air movement, No rhonchi, No wheeze Cardiovascular: Regular rate, Regular Rhythm, Normal S1, Normal S2, No murmurs Abdomen: Bowel Sounds Present, Soft, Non Tender, Non-Distended Skin: - Psych/Mental Status: Normal Affect, Appropriate Microbiology Past 72 Hours 01/01/21 Unknown Skin - Aerobic Swab Gram Stain - Final 01/01/21 Unknown Skin - Aerobic Swab Wound Culture - Preliminary Staphylococcus aureus 01/01/21 15:50 Blood Culture (Wb) - Anticubital Right Blood Culture - Preliminary 01/02/21 19:00 Mucosa - Nose SARS-CoV-2 Antigen (Rapid) - Final Laboratory Results 01/03/21 03:20: Vancomycin Trough 11.3 Current Medications Acetaminophen (Acetaminophen 325 Mg Tablet) 650 mg PO Q6H PRN PRN PRN Reason: Pain Score 1-10/Temp > 100.7 F Last Admin: 01/02/21 21:33 Dose: 650 mg Documented by: Vancomycin IV Pharmacy to Dose (1 ea/ Sodium Chloride) 500 mls @ 250 mls/hr IV X1 PRN; Protocol PRN Reason: Rx to Dose Sodium Chloride () 250 mls @ 15 mls/hr IV .[id number] PRN PRN Reason: Saline Flush Sodium Chloride () 250 mls @ 15 mls/hr IV .[id number] PRN PRN Reason: Additional IVPB Infusion Vancomycin HCl 2,000 mg/ (Sodium Chloride) 540 mls @ 250 mls/hr IV Q12H BAKARI Melatonin (Melatonin 3 Mg Tablet) 3 mg PO QHS PRN PRN PRN Reason: INSOMNIA Ondansetron HCl (Ondansetron 4 Mg/2 Ml Vial) 4 mg IV Q8H PRN PRN PRN Reason: NAUSEA/VOMITING Oxycodone HCl (Oxycodone 5 Mg Tablet) 5 mg PO Q6H PRN PRN PRN Reason: Pain Score 4-5 Last Admin: 01/03/21 04:28 Dose: 5 mg Documented by: Oxycodone HCl (Oxycodone 5 Mg Tablet) 10 mg PO Q6H PRN PRN PRN Reason: Pain Score 6-10 Sodium Chloride (0.9% Saline Lock 10 Ml Syringe) 10 - 40 ml IV UD PRN PRN Reason: SALINE FLUSH Last Admin: 01/03/21 04:00 Dose: 10 ml Documented by: Assessment/Plan Patient seen and examined independently. Data reviewed. I agree with the above note by the nurse practitioner. 1. Left howell cellulitis: Purulence. Continue with vancomycin. Likelihood of this being out gram-negative is low so we will discontinue cefepime. 2. bacteremia: 1/2 positive. monitor for now. Inpatient E&M: [address] [facility] Hosp L2
[2021-01-03 14:25] VITALS: BP 104/67; PULSE 88; RESP 18; TEMP 37; O2SAT 97
[2021-01-03 20:23] VITALS: BP 109/68; PULSE 79; RESP 18; TEMP 36.6; O2SAT 98
[2021-01-04 02:46] VITALS: BP 127/65; PULSE 77; RESP 18; TEMP 36.7; O2SAT 100
[2021-01-04] MEDS: oxyCODONE 5 MG Tablet PO (02:58)
[2021-01-04] MEDS: Acetaminophen 325 MG Tablet 650 MG PO (07:30)
[2021-01-04 08:16] VITALS: BP 104/79; PULSE 75; RESP 17; TEMP 37; O2SAT 100
[2021-01-04 08:30] VITALS: PULSE 80
[2021-01-04 08:54] LABS: Anion Gap 4 (5-15); BUN 9 mg/dL (7-18); BUN/Creat Ratio 13.8 RATIO (10-20); Calcium,Total 8.9 mg/dL (8.5-10.1); Chloride 104 mmol/L (98-107); Creatinine, Serum 0.65 mg/dL (0.55-1.02); EST Glomerular Filtration Rate 114 mL/min (>60); Est Glom Filt Rate - Afr Amer 138 mL/min (>60); Estimated Creatinine Clearance 119.55 ml/min; Glucose 89 mg/dL (74-106); Potassium 4.2 mmol/L (3.5-5.1); Sodium Level 137 mmol/L (136-145)
--- NOTE | 2021-01-04 10:50 | DCINST_ITS ---
- Discharge Diagnoses Current Active Problems: Current Active and Chronic Problems (Last Reviewed 12/30/20 @ 08:35 by Marianna Gould) Facial cellulitis (Acute) You will use the following diet at home:: No restrictions Your food should be the consistency of: Regular Discharge Activity: Return to Normal Activity Call your doctor if your incision/area has: Continuous Slow Oozing, Sudden Increased Bleeding, Increased Pain/ Swelling Call your doctor if you observe: Fever of 101 or Higher Cleanse incision/area with: Soap & Water, Keep Dressing Clean & Dry, - - cover with bandage/gauze while wearing a mask. Allergies/Adverse Reactions: Allergies latex Allergy (Verified 01/01/21 14:29) Rash Penicillins Allergy (Verified 01/01/21 14:29) Rash Medications to take at Discharge norgestimate 0.25 mg-ethinyl estradiol 35 mcg tablet 1 tab PO DAILY 12/30/20 Mupirocin [Bactroban] 1 applic TOPICAL BID 01/01/21 Naproxen Sodium [Aleve] 440 mg PO DAILY PRN PRN 01/01/21 Smz/Tmp Ds [Bactrim Ds] 1 tab PO BID #7 tab 01/04/21 The following prescriptions were given: Smz/Tmp Ds [Bactrim Ds] 1 tablet PO BID #7 tablet Primary Care Physician: Care Physician,No Primary [Primary Care Provider] - Test Results: Test results from this visit will be discussed in further detail at your follow- up appointment, if applicable. Please Follow Up With: primary care physician When: 1-2 weeks Proposed Discharge Date: 01/04/21
--- NOTE | 2021-01-04 10:52 | PCM.DC.SUM ---
Discharge Date and Diagnosis - Problem List Patient Problems: Active and Suspected Problems (Last Reviewed 12/30/20 @ 08:35 by Marianna Gould) Facial cellulitis (Acute) Date of Admission: 01/01/21 Date of Discharge: 01/04/21 - Primary Discharge Diagnosis Acute Problems: Active Problems (Last Reviewed 12/30/20 @ 08:35 by Marianna Gould) Facial cellulitis (Acute) Hospital Course and Treatment Imaging Results: Clinical Impression(s) from Imaging Studies Facial/Sinus 01/01/21 15:26 IMPRESSION: There is subcutaneous edema noted anterior and along the left side of the mandible. No drainable collection is noted. Submental and submandibular adenopathy. Electronically Signed: Pablito Carvalho DO at 17:14 EST Tel [phone], Service support , KERRIE Ha Operations: None Procedures: None Summary of Care Provided: The patient is a 30 year old F with left chin cellulitis. Patient had been on trimethoprim/sulfamethoxazole but was continue to get worse and started on clindamycin but then continue to get worse the patient was admitted and started on broad-spectrum antibiotics. Patient was started on vancomycin. Patient was seen by Dr. Ha, plastic surgery, patient did not want to have surgery. Patient has improved though there is some bogginess in the lower region of the cellulitis. So culture came back showing MRSA but sensitive to clindamycin and trimethoprim/sulfamethoxazole. To me the patient that the cellulitis may have been progressively getting worse and the antibiotics had not had enough time to slow the infection. I reviewed the medications with the patient as she had a bottle of her Bactrim here. She has 7 pills which I feel would be appropriate to complete. I told her not to take the clindamycin. Advised patient that she could develop an abscess a later point where surgery may be necessary but in the interim, patient advised to do warm compresses as able and to wear bandage or gauze over it while she is wearing a mask at work. I will have any reservations about the patient returning to work. Patient has no further purulence just some crusting overall. Therefore no for the patient is a risk for contamination to others. [] Patient Problems: Active and Suspected Problems (Last Reviewed 12/30/20 @ 08:35 by Marianna Gould) Facial cellulitis (Acute) - Physical Exam Vitals/I&O's: Vital Signs Temp Pulse Resp BP Pulse Ox 37.0 C 80 17 104/79 100 01/04/21 08:16 01/04/21 08:30 01/04/21 08:16 01/04/21 08:16 01/04/21 08:16 Oxygen Delivery Method Room Air Weight: 87.044 kg Body Mass Index (BMI) 30.9 Intake and Output for Last 24 Hours 01/02/21 01/03/21 01/04/21 23:59 23:59 23:59 Intake Total 3770 / 3770 1575 / 1575 1018.00 / 1018.00 Balance 3770 / 3770 1575 / 1575 1018.00 / 1018.00 General: Alert, No apparent distress HEENT: Atraumatic, Normocephalic, - - Decreasing erythema over the howell. Libido bogginess in the lower aspect of its but no purulence could be expressed. Scabbing and crusting over the lesion. Oral: Moist Mucosa, No Gingival or Mucosal Lesions/ Ulcerations Microbiology Past 72 Hours 01/01/21 16:00 Blood Culture (Wb) - Anticubital Left Blood Culture - Preliminary No growth in 48 hours. 01/01/21 15:50 Blood Culture (Wb) - Anticubital Right Blood Culture - Preliminary 01/01/21 Unknown Skin - Aerobic Swab Gram Stain - Final 01/01/21 Unknown Skin - Aerobic Swab Wound Culture - Final Meth. resistant Staph. aureus 01/02/21 19:00 Mucosa - Nose SARS-CoV-2 Antigen (Rapid) - Final Laboratory Results 01/04/21 08:00: Sodium 137, Potassium 4.2, Chloride 104, Carbon Dioxide 29.0, Anion Gap 4 L, BUN 9, Creatinine 0.65, Estim Creat Clear Calc 119.55, Est GFR (MDRD) Af Amer 138, Est GFR (MDRD) Non-Af 114, BUN/Creatinine Ratio 13.8, Glucose 89, Calcium 8.9 Current Medications Acetaminophen (Acetaminophen 325 Mg Tablet) 650 mg PO Q6H PRN PRN PRN Reason: Pain Score 1-10/Temp > 100.7 F Last Admin: 01/04/21 07:30 Dose: 650 mg Documented by: Vancomycin IV Pharmacy to Dose (1 ea/ Sodium Chloride) 500 mls @ 250 mls/hr IV X1 PRN; Protocol PRN Reason: Rx to Dose Sodium Chloride () 250 mls @ 15 mls/hr IV .[id number] PRN PRN Reason: Saline Flush Last Infusion: 01/04/21 07:30 Dose: 0 mls/hr Documented by: Sodium Chloride () 250 mls @ 15 mls/hr IV .[id number] PRN PRN Reason: Additional IVPB Infusion Vancomycin HCl 2,000 mg/ (Sodium Chloride) 540 mls @ 250 mls/hr IV Q12H BAKARI Last Infusion: 01/04/21 06:23 Dose: Infused Documented by: Melatonin (Melatonin 3 Mg Tablet) 3 mg PO QHS PRN PRN PRN Reason: INSOMNIA Ondansetron HCl (Ondansetron 4 Mg/2 Ml Vial) 4 mg IV Q8H PRN PRN PRN Reason: NAUSEA/VOMITING Oxycodone HCl (Oxycodone 5 Mg Tablet) 5 mg PO Q6H PRN PRN PRN Reason: Pain Score 4-5 Last Admin: 01/04/21 02:58 Dose: 5 mg Documented by: Oxycodone HCl (Oxycodone 5 Mg Tablet) 10 mg PO Q6H PRN PRN PRN Reason: Pain Score 6-10 Sodium Chloride (0.9% Saline Lock 10 Ml Syringe) 10 - 40 ml IV UD PRN PRN Reason: SALINE FLUSH Last Admin: 01/03/21 17:55 Dose: 10 ml Documented by: Discharge Diet: No Restrictions Discharge Activity: Return to Normal Activity Call your doctor if your incision/area has: Continuous Slow Oozing, Sudden Increased Bleeding, Increased Pain/ Swelling Call your doctor if you observe: Fever of 101 or Higher Cleanse incision/area with: Soap & Water, Keep Dressing Clean & Dry, - - cover with bandage/gauze while wearing a mask. Home Medications: Medications to take at Discharge norgestimate 0.25 mg-ethinyl estradiol 35 mcg tablet 1 tab PO DAILY 12/30/20 Mupirocin [Bactroban] 1 applic TOPICAL BID 01/01/21 Naproxen Sodium [Aleve] 440 mg PO DAILY PRN PRN 01/01/21 Smz/Tmp Ds [Bactrim Ds] 1 tab PO BID #7 tab 01/04/21 Following Prescriptions Were Given to Patient: Smz/Tmp Ds [Bactrim Ds] 1 tab PO BID #7 tab Primary Care Physician: Care Physician,No Primary [Primary Care Provider] - Please Follow Up With: primary care physician When: 1-2 weeks Disposition: Home Minutes spent on discharge:: 32 Patient Condition:: Good Medical Necessity - Tobacco Use Smoking Status: Never smoker Meaningful Use Info Meaningful Use Diagnoses (Choose all that apply): None applicable Inpatient E&M: 94643 Disch Hosp
[2021-01-04 11:07] VITALS: BP 104/79; PULSE 78; RESP 16; TEMP 36.9; O2SAT 100
--- NOTE | 2021-01-04 16:06 | NURSING ---
Late entry: Student documentation reviewed.
== END 2021-01-04 11:41 | disposition home or self-care (01) | DRG 603 ==
LOC: ED 17:21 → MS3 17:42
PROVIDERS: Admitting Provider Family Medicine; Emergency Provider Emergency Medicine
DX: L03.211 Cellulitis of face (principal); L02.01 Cutaneous abscess of face; R78.81 Bacteremia; B95.62 Methicillin resistant Staphylococcus aureus infection as the cause of diseases classified elsewhere
CPT/HCPCS: 36415; 70487; 80048; 80202; 83605; 84703; 85025; 87040; 87070; 87077; 87186; 87205; 87426; 99284; J7030; J7040; J7050; Q9967; A4216; J2405

== ENCOUNTER → 2024-04-15 | Outpatient (CLI) | payer OTHER, SELFPAY ==
[2024-04-19 21:07] LABS: Chlamydia By Nucleic Acid AMP Negative (Negative); Gonococcus By Nucleic Acid AMP Negative (Negative)
[2024-04-22 02:08] LABS: HPV APTIMA, High Risk Positive (Negative); HPV Genotype 16, Aptima Negative (Negative); HPV Genotype 18,45 Aptima Negative (Negative)
== END | disposition home or self-care (01) ==
PROVIDERS: Referring Provider Advanced Practice Midwife; Visit Provider Advanced Practice Midwife
DX: Z34.90 Encounter for supervision of normal pregnancy, unspecified, unspecified trimester (principal)
CPT/HCPCS: 87086; 87088; 87491; 87591; 87624; 88175; G0145

== ENCOUNTER → 2024-04-20 | Outpatient (CLI) | payer OTHER, SELFPAY | END | disposition home or self-care (01) | LOC: LABSPEC 07:35 | PROVIDERS: Referring Provider Advanced Practice Midwife; Visit Provider Advanced Practice Midwife | DX: R35.0 Frequency of micturition (principal) | CPT/HCPCS: 87086; 87088 ==

== ENCOUNTER → 2024-04-30 | Outpatient (CLI) | payer OTHER, SELFPAY ==
[2024-04-30 09:16] LABS: Absolute Lymphocyte Count 1.74 X10^3/uL (0.83-4.51); Absolute Neutrophil Count 6.7 X10^3/uL (2.0-7.7); Basophil# 0.02 X10^3/uL; Basophil% 0.2 % (0-1); Eosinophil# 0.04 X10^3/uL; Eosinophils% 0.4 % (0-5); Hematocrit 36.2 % (37-47); Hemoglobin 12.4 g/dL (12.0-15.0); Lymphocyte # 1.74 X10^3/ul (0.83-4.51); Lymphocyte % 19.4 % (19-41); Mean Corp Hgb Conc 34.3 g/dL (32-36); Mean Corpuscular Volume 93.5 fL (81-99); Mean Platelet Vol. 9.1 fl (6.2-12.0); Monocyte# 0.38 X10^3/uL; Monocyte% 4.2 % (0-10); NRBC Flagged by Analyzer 0 % (0-5); Neutrophil # 6.73 X10^3/uL (2.7-7.7); Neutrophil % 75.4 % (47-70); Platelet Count 254 K/mm3 (150-450); RBC Distribution Width CV 11.9 % (11.6-14.6); RBC Distribution Width SD 41.2 fl (35.1-43.9); Red Blood Count 3.87 M/mm3 (4.2-5.4)
[2024-04-30 10:24] LABS: HIV - WCH Non-Reactive (Nonreactive); Hepatitis B Surface Antigen Non-Reactive (Nonreactive); Hepatitis C Antibody Non-Reactive (Nonreactive); Rubella IgG Reactive (Nonreactive); Syphilis Antibodies Non-reactive
[2024-05-01 08:10] LABS: V-Zoster IgG (Immunity) 434 index (Immune >165)
== END | disposition home or self-care (01) ==
LOC: PAVLAB 08:48
PROVIDERS: Referring Provider Advanced Practice Midwife; Visit Provider Advanced Practice Midwife
DX: Z34.81 Encounter for supervision of other normal pregnancy, first trimester (principal)
CPT/HCPCS: 36415; 85025; 86703; 86762; 86780; 86787; 86803; 86850; 86900; 86901; 87340

== ENCOUNTER → 2024-08-27 | Outpatient (CLI) | payer OTHER, SELFPAY ==
[2024-08-27 11:03] LABS: Absolute Lymphocyte Count 1.76 X10^3/uL (0.83-4.51); Absolute Neutrophil Count 10.4 X10^3/uL (2.0-7.7); Basophil# 0.03 X10^3/uL; Basophil% 0.2 % (0-1); Eosinophils% 0.8 % (0-5); Hematocrit 34.2 % (37-47); Hemoglobin 11.2 g/dL (12.0-15.0); Lymphocyte # 1.76 X10^3/ul (0.83-4.51); Lymphocyte % 13.7 % (19-41); Mean Corp Hgb Conc 32.7 g/dL (32-36); Mean Corpuscular Hgb 31.8 pg (27.0-32.0); Mean Corpuscular Volume 97.2 fL (81-99); Mean Platelet Vol. 9.6 fl (6.2-12.0); Monocyte# 0.47 X10^3/uL; Monocyte% 3.7 % (0-10); NRBC Flagged by Analyzer 0 % (0-5); Neutrophil # 10.41 X10^3/uL (2.7-7.7); Platelet Count 244 K/mm3 (150-450); RBC Distribution Width CV 13.3 % (11.6-14.6); RBC Distribution Width SD 47.1 fl (35.1-43.9); Red Blood Count 3.52 M/mm3 (4.2-5.4); White Blood Count 12.9 K/mm3 (4.4-11.0)
[2024-08-27 11:11] LABS: Glucose Challenge Gest 1H 50g 136 mg/dL (70-140)
[2024-08-27 11:50] LABS: HIV - WCH Non-Reactive (Nonreactive); Syphilis Antibodies Non-reactive
== END | disposition home or self-care (01) ==
LOC: WOBLAB 08:56
PROVIDERS: Advanced Practice Midwife; Referring Provider Obstetrics & Gynecology; Visit Provider Obstetrics & Gynecology
DX: O09.92 Supervision of high risk pregnancy, unspecified, second trimester (principal); Z3A.00 Weeks of gestation of pregnancy not specified; Z13.1 Encounter for screening for diabetes mellitus
CPT/HCPCS: 36415; 82950; 85025; 86703; 86780

== ENCOUNTER → 2024-09-03 | Outpatient (CLI) | payer OTHER, SELFPAY ==
[2024-09-03 07:11] LABS: Bedside Glucose 100 mg/dL (74-106)
[2024-09-03 07:27] LABS: Glucose GTT-Gestation. Fasting 100 mg/dL (<105)
[2024-09-03 09:24] LABS: Glucose GTT-Gestational 1 Hr 132 mg/dL (<190)
[2024-09-03 09:49] LABS: Glucose GTT-Gestational 2 Hr 116 mg/dL (<165)
[2024-09-03 10:32] LABS: Glucose GTT-Gestational 3 Hr 64 L (<145)
== END | disposition home or self-care (01) ==
LOC: LAB 06:42
PROVIDERS: Referring Provider Obstetrics & Gynecology; Visit Provider Obstetrics & Gynecology
DX: Z13.1 Encounter for screening for diabetes mellitus (principal)
CPT/HCPCS: 36415; 82951; 82952; 82962

== ENCOUNTER 2024-09-17 15:35 | Outpatient (CLI) | payer OTHER, SELFPAY ==
[2024-09-17 16:12] VITALS: BP 108/57; PULSE 94; RESP 15; TEMP 36.8; O2SAT 100; O2SAT 98
[2024-09-17 16:39] LABS: Red Blood Cells-Urine 0 SEEN /hpf (0-5); White Blood Cells 0 SEEN /hpf (0-5)
[2024-09-17 16:41] LABS: Absolute Lymphocyte Count 1.43 X10^3/uL (0.83-4.51); Absolute Neutrophil Count 8.4 X10^3/uL (2.0-7.7); Basophil# 0.01 X10^3/uL; Basophil% 0.1 % (0-1); Eosinophil# 0.08 X10^3/uL; Eosinophils% 0.8 % (0-5); Hematocrit 32.4 % (37-47); Hemoglobin 10.9 g/dL (12.0-15.0); Lymphocyte # 1.43 X10^3/ul (0.83-4.51); Lymphocyte % 13.4 % (19-41); Mean Corp Hgb Conc 33.6 g/dL (32-36); Mean Corpuscular Hgb 31.8 pg (27.0-32.0); Mean Corpuscular Volume 94.5 fL (81-99); Mean Platelet Vol. 9.6 fl (6.2-12.0); Monocyte# 0.64 X10^3/uL; NRBC Flagged by Analyzer 0 % (0-5); Neutrophil # 8.42 X10^3/uL (2.7-7.7); Platelet Count 231 K/mm3 (150-450); RBC Distribution Width CV 13.3 % (11.6-14.6); RBC Distribution Width SD 46.1 fl (35.1-43.9); Red Blood Count 3.43 M/mm3 (4.2-5.4); White Blood Count 10.7 K/mm3 (4.4-11.0)
[2024-09-17 16:47] LABS: Color, Urine Yellow (Yellow); Glucose, Dipstick Normal (Normal); Ketone-Dipstick Negative (Negative); Leukocyte Esterase-Dipstick Negative /ul (Negative); Nitrite-Dipstick Negative (Negative); Occult Blood-Urine Negative /ul (Negative); Protein-Dipstick 15 mg/dl (Negative); Urine Bilirubin Dipstick Negative (Negative); Urine Clarity Clear (Clear); Urine Urobilinogen 4 mg/dl (Normal); Urine pH 6.5 (5.0 - 8.0)
[2024-09-17 16:59] LABS: Bacteria RARE /hpf (None Seen); Mucous, Urine 1+ /hpf (<or=2+); Squamous Epithelial Cells - UA 0-5 SEEN /hpf (5-10)
[2024-09-17 17:38] LABS: ALB/GLOB Ratio 0.8 RATIO (0.9-2.4); AST(SGOT) 9 U/L (15-37); Alanine Aminotransfer ALT/SGPT 13 U/L (13-56); Albumin, Serum 2.7 g/dL (3.2-5.0); Alkaline Phosphatase 86 U/L (45-117); Anion Gap 7 (5-15); BUN 5 mg/dL (7-18); BUN/Creat Ratio 11.5 RATIO (10-20); Calcium,Total 8.8 mg/dL (8.5-10.1); Chloride 108 mmol/L (98-107); Creatinine, Serum 0.44 mg/dL (0.55-1.02); EST Glomerular Filtration Rate 177 mL/min (>60); Est Glom Filt Rate - Afr Amer 214 mL/min (>60); Globulin 3.4 g/dL (2.2-4.2); Glucose 107 mg/dL (74-106); Lipase 20 U/L (13-75); Potassium 3.4 mmol/L (3.5-5.1); Protein, Total 6.1 g/dL (6.4-8.2); Sodium Level 139 mmol/L (136-145)
--- NOTE | 2024-09-17 17:47 | OB.TRI.PN_ITS ---
Progress Notes Date of Service: 09/17/24 Progress Note: Patient presents for triage evaluation secondary to vomiting after eating. No complaints of nausea or localized abdominal pain. Is struggling with acid reflux but only using Tums. instructed to add Pepcid daily FHT: 125 Moderate variability reactive no decelerations category I tracing [place]: no Contractions Assessment and plan: Reactive NST, labs reviewed and normal.reassuring maternal and status patient discharged to home to follow-up on friday in the office if not better over the weekend after adding pepcid. See problem list details for additional plan information. Laboratory Studies: Laboratory Tests 09/17/24 Range/Units 16:15 WBC 10.7 (4.4-11.0) K/mm3 RBC 3.43 L (4.2-5.4) M/mm3 Hgb 10.9 L (12.0-15.0) g/dL Hct 32.4 L (37-47) % MCV 94.5 (81-99) fL MCH 31.8 (27.0-32.0) pg MCHC 33.6 (32-36) g/dL RDW Std Deviation 46.1 H (35.1-43.9) fl RDW Coeff of [place] 13.3 (11.6-14.6) % Plt Count 231 (150-450) K/mm3 MPV 9.6 (6.2-12.0) fl Immature Gran % (Auto) 0.700 (0.0-0.9) % Neut % (Auto) 79.0 H (47-70) % Lymph % (Auto) 13.4 L (19-41) % [place] % (Auto) 6.0 (0-10) % Eos % (Auto) 0.8 (0-5) % Baso % (Auto) 0.1 (0-1) % Absolute Neuts (auto) 8.4 H (2.0-7.7) X10^3/uL Absolute Lymphs (auto) 1.43 (0.83-4.51) X10^3/uL Nucleated RBC % 0 (0-5) % Sodium 139 (136-145) mmol/L Potassium 3.4 L (3.5-5.1) mmol/L Chloride 108 H (98-107) mmol/L Carbon Dioxide 24.0 (21.0-32.0) mmol/L Anion Gap 7 (5-15) BUN 5 L (7-18) mg/dL Creatinine 0.44 L (0.55-1.02) mg/dL Est GFR (MDRD) Af Amer 214 (>60) mL/min Est GFR (MDRD) Non-Af 177 (>60) mL/min BUN/Creatinine Ratio 11.5 (10-20) RATIO Glucose 107 H (74-106) mg/dL Calcium 8.8 (8.5-10.1) mg/dL Total Bilirubin 0.30 (0.20-1.00) mg/dL AST 9 L (15-37) U/L ALT 13 (13-56) U/L Alkaline Phosphatase 86 (45-117) U/L Total Protein 6.1 L (6.4-8.2) g/dL Albumin 2.7 L (3.2-5.0) g/dL Globulin 3.4 (2.2-4.2) g/dL Albumin/Globulin Ratio 0.8 L (0.9-2.4) RATIO Lipase 20 (13-75) U/L Urine Color Yellow (Yellow) Urine Clarity Clear (Clear) Urine pH 6.5 (5.0 - 8.0) Ur Specific [place] 1.010 (1.002-1.030) Urine Protein 15 H (Negative) mg/dl Urine Glucose (UA) Normal (Normal) mg/dl Urine Ketones Negative (Negative) mg/dl Urine Occult Blood Negative (Negative) /ul Urine Nitrite Negative (Negative) Urine Bilirubin Negative (Negative) mg/dL Urine Urobilinogen 4 H (Normal) mg/dl Ur Leukocyte Esterase Negative (Negative) /ul Urine RBC 0 SEEN (0-5) /hpf Urine WBC 0 SEEN (0-5) /hpf Ur Squamous Epith Cells 0-5 SEEN (5-10) /hpf Urine Bacteria RARE (None Seen) /hpf Urine Mucus 1+ (<or=2+) /hpf Charges/Coding Multi Select Codes Visit Charges Office Visit/Consults: 00059 OV L3 Est 20min Urinary/Genital Urinary/Genital CPT Codes: 44398-22 non-stress test Interp Assessment & Plan (1) Elevated fasting glucose: (2) Abnormal glucose affecting : COMMENT: passed 3 hour but elevated fasting (3) Varicose veins of both lower extremities: QUALIFIERS: Varicose vein complication: unspecified Qualified Code(s): I83.93 - Asymptomatic varicose veins of bilateral lower extremities COMMENT: below the knee (4) Acid reflux: (5) HPV test positive: COMMENT: PAP at NOB positive HPV, last pap 2019 nl, has had hx of HPV in past (6) Supervision of high-risk : QUALIFIERS: Trimester: second trimester Qualified Code(s): O09.92 - Supervision of high risk , unspecified, second trimester COMMENT: PRR, (one twin delivery), ESTUARDO 11/19/24, boy Janay Day & Silvino Conklin (7) : QUALIFIERS: Weeks of gestation: 30 weeks Qualified Code(s): Z3A.30 - 30 weeks gestation of COMMENT: discussed genetic & carrier testing, low risk NIPT (8) Hx of section: COMMENT: with twins plan RLTCS scheduled for 11/12 @ 12 with (9) History of twin in prior : (10) History of miscarriage, currently : COMMENT: early losses, one prior to 1st child and one after twins
== END 2024-09-17 17:50 | disposition home or self-care (01) ==
LOC: WPOUT 15:41 → WP 15:41
PROVIDERS: Referring Provider Advanced Practice Midwife; Visit Provider Advanced Practice Midwife
DX: O99.613 Diseases of the digestive system complicating pregnancy, third trimester (principal); K21.9 Gastro-esophageal reflux disease without esophagitis; O99.810 Abnormal glucose complicating pregnancy; O22.03 Varicose veins of lower extremity in pregnancy, third trimester; I83.93 Asymptomatic varicose veins of bilateral lower extremities; O09.93 Supervision of high risk pregnancy, unspecified, third trimester; O34.219 Maternal care for unspecified type scar from previous cesarean delivery; Z87.59 Personal history of other complications of pregnancy, childbirth and the puerperium; Z3A.30 30 weeks gestation of pregnancy
CPT/HCPCS: 36415; 59025; 59050; 80053; 81001; 83690; 85025; 87086; 87088; 99221; G0378

== ENCOUNTER → 2024-10-22 | Outpatient (CLI) | payer OTHER, SELFPAY ==
[2024-10-22 11:01] LABS: ROM Internal Control Test YES-OK TO RESULT pt. (Internal QC); ROM Patient Test Negative (Negative); Record Kit Lot#, ROM+ K1972
== END | disposition home or self-care (01) ==
LOC: LABSPEC 10:35
PROVIDERS: Visit Provider Obstetrics & Gynecology
DX: O09.92 Supervision of high risk pregnancy, unspecified, second trimester (principal); O26.899 Other specified pregnancy related conditions, unspecified trimester; N89.8 Other specified noninflammatory disorders of vagina; Z3A.00 Weeks of gestation of pregnancy not specified; O99.891 Other specified diseases and conditions complicating pregnancy
CPT/HCPCS: 84112; 87081

== ENCOUNTER 2024-11-12 10:31 | Inpatient (IN) | payer OTHER, SELFPAY ==
--- NOTE | 2024-11-11 16:53 | HP.PCM_ITS ---
History and Physical Date of Admission: 11/12/24 Intake Vital Signs 07/09/2413:24 10/29/2410:10 11/05/2410:10 Height 5 ft 6 in 5 ft 6 in 5 ft 6 in Weight: 225 lb 6 oz BMI 36.3 BP 107/71 Intake Visit Reasons: 38 WK OB Vocational Case Manager Required: No Is patient in pain?: No Feel stressed/tense/nervous/anxious/difficulty sleeping: not at all Allergies latex Allergy (Verified 11/05/24 10:11) RashPenicillins Allergy (Verified 11/05/24 10:11) Rash Medications ?Medication ?Instructions ?Recorded ?Confirmed ?Type multivit-min no.71-iron fum 28 cap PO 04/09/24 11/05/24 History mg-folate no.1 1 mg-dha 300 mg capsule (PNV-[place]) ondansetron 4 mg disintegrating 4 mg PO Q4H PRN nausea and 09/15/24 11/05/24 Rx tablet vomiting #60 tabs Last Menstrual Period: 02/13/24 Zika: Zika virus screening: Negative : Yes Have you fallen in the past year?: No PFSH PFSH Medical History Endometriosis determined by laparoscopy Surgical History [place] teeth extracted History of tonsillectomy delivery delivered Family History Grandmother Stillborn, normal 2 stillbirths due to cord around the neck Social History adopted: No household members: significant other and children number of children: 4 current occupational status: employed current occupation: Dental management assistant current occupational exposures/hazards: No pets and animals: Yes pets and animals: dog(s) history of recent travel: No sexually active: Yes Smoking Status: Never smoker alcohol intake: current alcohol intake frequency: holidays/special occasions only details: Not while substance use type: does not use well-balanced diet: daily or most days caffeine: Yes Type: coffee Number of servings: 1 eating out: rarely or never during the past year weight has: decreased > 10 lbs what type of physical activity do you participate in: walking frequency: 5-6 times per week duration: 30-45 minutes/day debbie/yarsani: None seatbelt use: always do you feel safe at home: Yes 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 Date Name GA/Weeks Outcome Route Bth Weight Infant Gen Labor Lgth Anesthesia Del Locatn Provider FOB 11/01/13 Vasu 40 live - full term 8# Male epidural [facility] Dr.Seal Sean Lenz 10/14/18 Janay& Katerin 38 live - full term 6#5oz each Female spinal [facility] Dr.Weeman Cunningham HPI 38 WK OB Details: ANTONIO AVILES is a 33 year old who presents for RLTCS declined TOLAC. OB Visit ESTUARDO Calculator Estimated Delivery Date Method Current WG Current Estimate 11/19/24 LMP (Certain) 38w 0d Expected Delivery Route/Plan RLTCS Labor Preferences- CB/BF classes: [] labor support person: [] labor intervention preferences: [] pain management options preferred: [] cut cord/dad catch: [] : [] PP control planned: [] discussed possible routes of delivery and associated risks: [] special requests: [] Specific Issue/Plans Covid status: [] Flu vaccine: [] Tdap vaccine: [] Rhogam: [] LARC form signed: [] Problem list reviewed and updated with the most current plan of care details and appropriate orders placed. Relevant counseling for the gestational age provided. Continue routine care and follow up unless otherwise noted in visit notes/problem list details Initial Weight: Not Recorded Date -?-?-?-?-?-?-?-?-?-?-?-?- EGA Weight BP Urine Prot -?-?-?-?-?-?-?-?-?-?-?-?- Glucose FHR FuHt Pres Dilation -?-?-?-?-?-?-?-?-?-?-?-?- Effaced St Visit Note 04/15/24-?-?-?-?-?-?-?-?-?-?-?-?- 8w 6d 184 lb 114/71 -?-?-?-?-?-?-?-?-?-?-?-?- 164 -?-?-?-?-?-?-?-?-?-?-?-?- kw- CRL cons with dates. wants NIPT. undecided about c/s vs TOLAC. 05/13/24-?-?-?-?-?-?-?-?-?-?-?-?- 12w 6d 190 lb 6 oz 112/75 -?-?-?-?-?-?-?-?-?-?-?-?- 156 -?-?-?-?-?-?-?-?-?-?-?-?- JV- no complaints today. it appears that she had a pos hpv pap. colposcopy needed. Normal NIPT. 06/09/24-?-?-?-?-?-?-?-?-?-?-?-?- 16w 5d 198 lb 4 oz 110/70 Negative -?-?-?-?-?-?-?-?-?-?-?-?- Negative 147 -?-?-?-?-?-?-?-?-?-?-?-?- MH-no VB. No flutters yet. Denies concerns 06/18/24-?-?-?-?-?-?-?-?-?-?-?-?- 18w 0d 196 lb 2 oz 100/63 Negative -?-?-?-?-?-?-?-?-?-?-?-?- Negative 123 -?-?--?-?-?-?-?-?-?-?-?-?- JV- colp today. see note. 07/09/24-?-?-?-?-?-?-?-?-?-?-?-?- 21w 0d 198 lb 109/70 Negative -?-?-?-?-?-?-?-?-?-?-?-?- Negative 140 -?-?-?-?-?-?-?-?-?-?-?-?- SM- no vb cramping cough resolving reviewe danatomy results 08/06/24-?-?-?-?-?-?-?-?-?-?-?-?- 25w 0d 203 lb 107/71 Negative -?-?-?-?-?-?-?-?-?-?-?-?- Negative 151 25 -?-?-?-?-?-?-?-?-?-?-?-?- KW- no vb/cramping. good fm. 28 week labs discussed 08/27/24-?-?-?-?-?-?-?-?-?-?-?-?- 28w 0d 209 lb 8 oz 101/71 Negative -?-?-?-?-?-?-?-?-?-?-?-?- Negative 135 29 -?-?-?-?-?-?-?-?-?-?-?-?- KW- no vb/ctx. good fm. Declines Tdap and flu today. LARC done. labs drawn. 09/10/24-?-?-?-?-?-?-?-?-?-?-?-?- 30w 0d 217 lb 105/69 -?-?-?-?-?-?-?-?-?-?-?-?- 135 31 -?-?-?-?-?-?-?-?-?-?-?-?- JV- no lof, vaginal bleeding, or dec fm. States is leaking urine and declines rom + declines flu and tdap and rsv vaccines. 09/23/24-?-?-?-?-?-?-?-?-?-?-?-?- 31w 6d 217 lb 115/76 Negative -?-?-?-?-?-?-?-?-?-?-?-?- Negative 131 33 -?-?-?-?-?-?-?-?-?-?-?-?- KW- no vb/lof/ctx. good fm. feeling better after this weekend. no concerns 10/08/24-?-?-?-?-?-?-?-?-?-?-?-?- 34w 0d 222 lb 102/68 Negative -?-?-?-?-?-?-?-?-?-?-?-?- Negative 130 34 -?-?-?-?-?-?-?-?-?-?-?-?- SM- no vb lof good fm no regular ctx 10/22/24-?-?-?-?-?-?-?-?-?--?-?-?- 36w 0d 222 lb 113/74 Negative -?-?-?-?-?-?-?-?-?-?-?-?- Negative 134 36 0-?-?-?-?-?-?-?-?-?- ?-?-?- JV- pt think is leaking on exam there is no pooling. rom plus collected. cx closed. unable to tell position but patient is scheduled for rpt section. She has moderate right lower side pain the whole that is worse when she has a contraction. if worsens or becomes ever 5 minutes, patient instructed to come to L&D. she will be NPO until we get the rom plus back. 10/29/24-?-?-?-?-?-?-?-?-?-?-?-?- 37w 0d 225 lb 6 oz 114/75 Negative -?-?-?-?-?-?-?-?-?-?-?-?- Negative 140 37 -?-?-?-?-?-?-?-?-?-?-?-?- SM- no vb lof good fm nore ugalr ctx 11/05/24-?-?-?-?-?-?-?-?-?-?-?-?- 38w 0d 225 lb 6 oz 107/71 Negative -?-?-?-?-?-?-?-?-?-?-?-?- Negative 140 38 Cephalic 1.5-?-?-?-?-?-?-?-?- ?-?-?-?- 60 -2 SM- no vb lof good fm no regular ctx feeling more pressure, lower discomfort. ACOG First Trimester First Trimester: Second Trimester Second Trimester: Signs and Symptoms of Labor, Selecting a care provider, Reproductive Life Planning & Contreception, Care Planning, Tobacco Cessation, Depression/Anxiety and Intimate Partner Violence Third Trimester Third Trimester: Pain Management Plans, Labor support person(s), Immediate Larc, Movement Monitoring and Feeding Yes ; Discussed Trial of Labor after Counseling and Discussed Circumcision preference ROS Const Reports system reviewed and no additional complaints, except as documented Card Reports system reviewed and no additional complaints, except as documented Resp Reports system reviewed and no additional complaints, except as documented GI Reports system reviewed and no additional complaints, except as documented and Reports nausea Reports system reviewed and no additional complaints, except as documented Musc Reports system reviewed and no additional complaints, except as documented Exam Const General: cooperative, healthy appearing, comfortable and anxious HENMT Head: normal to inspection Nose: external nose normal Face and sinus: normal facial exam Neck Neck: normal visual inspection, full ROM and no lymphadenopathy Thyroid: thyroid normal Chest Chest palpation & inspection: normal inspection of the chest Resp Effort & Inspection: normal respiratory effort GI Inspection: normal to inspection Palpation: soft and other (gravid uterus) Other: infant vertex and appropriate size for gestational age Other: Cervical Exam: Extrem General: pedal edema Results POC Urinalysis 2 Dip (Clinic) Office Urine Glucose Negative Last Edit by Chloé Blackwell on 11/05/24 10:15 Office Urine Protein Negative Last Edit by Chloé Blackwell on 11/05/24 10:15 Coding Level of Care Code OB Routine Diagnoses Abnormal glucose affecting O99.810 Varicose veins of both lower extremities, unspecified whether complicated I83.93 Varicose vein complication: unspecified HPV test positive Supervision of high risk in second trimester O09.92 Trimester: second trimester 38 weeks gestation of Z3A.38 Weeks of gestation: 38 weeks Hx of section Z98.891 History of twin in prior Z87.59 History of miscarriage, currently O09.299 Assessment and Plan Assessment and Plan (1) Abnormal glucose affecting : Status: Acute Comment: passed 3 hour but elevated fasting (2) Varicose veins of both lower extremities: Status: Acute Qualifiers: Varicose vein complication: unspecified Qualified Code(s): I83.93 - Asymptomatic varicose veins of bilateral lower extremities Comment: below the knee (3) HPV test positive: Status: Acute Comment: PAP at NOB positive HPV, last pap 2019 nl, has had hx of HPV in past (4) Supervision of high-risk : Status: Acute Qualifiers: Trimester: second trimester Qualified Code(s): O09.92 - Supervision of high risk , unspecified, second trimester Comment: PRR, (one twin delivery), ESTUARDO 11/19/24, boy Janay Lai & Silvino Conklin (5) : Status: Acute Qualifiers: Weeks of gestation: 38 weeks Qualified Code(s): Z3A.38 - 38 weeks gestation of Comment: discussed genetic & carrier testing, low risk NIPT (6) Hx of section: Status: Acute Comment: with twins plan RLTCS scheduled for 11/12 @ 12 with (7) History of twin in prior : Status: Acute (8) History of miscarriage, currently : Status: Acute Comment: early losses, one prior to 1st child and one after twins Orders: Orders POC Urinalysis 2 Dip (Clinic) Today plan RLTCS After discussing the patient's diagnosis and treatment plan options, patient wishes to proceed with surgical management. I have discussed with the patient the risks, benefits, and alternatives of the procedure which include but are not limited to risks of anesthesia, bleeding, infection, possible damage to bowel, bladder, or surrounding vasculature which could lead to additional surgery to evaluate any complications. Patient agrees to procedure and wishes to proceed. ACOG/uptodate references given for additional information regarding procedure.
[2024-11-12] VITALS (14 sets, daily range): BP systolic 90–115; BP diastolic 60–99; PULSE 85–102; RESP 16; TEMP 36.2–36.6; O2SAT 96–100; BMI 36.3
[2024-11-12 11:09] LABS: Absolute Lymphocyte Count 1.67 X10^3/uL (0.83-4.51); Absolute Neutrophil Count 9.7 X10^3/uL (2.0-7.7); Basophil# 0.02 X10^3/uL; Basophil% 0.2 % (0-1); Eosinophil# 0.09 X10^3/uL; Eosinophils% 0.7 % (0-5); Hematocrit 34.4 % (37-47); Hemoglobin 11.2 g/dL (12.0-15.0); Lymphocyte # 1.67 X10^3/ul (0.83-4.51); Lymphocyte % 13.6 % (19-41); Mean Corp Hgb Conc 32.6 g/dL (32-36); Mean Corpuscular Hgb 30.7 pg (27.0-32.0); Mean Corpuscular Volume 94.2 fL (81-99); Mean Platelet Vol. 9.7 fl (6.2-12.0); Monocyte# 0.69 X10^3/uL; Monocyte% 5.6 % (0-10); NRBC Flagged by Analyzer 0 % (0-5); Neutrophil # 9.73 X10^3/uL (2.7-7.7); Neutrophil % 79.1 % (47-70); Platelet Count 209 K/mm3 (150-450); RBC Distribution Width CV 13.4 % (11.6-14.6); RBC Distribution Width SD 46.1 fl (35.1-43.9); Red Blood Count 3.65 M/mm3 (4.2-5.4); White Blood Count 12.3 K/mm3 (4.4-11.0)
[2024-11-12] MEDS: Lactated Ringers 1,000 ML 999 ML IV ×2 (11:20→11:44)
[2024-11-12 11:37] LABS: Syphilis Antibodies Non-reactive
[2024-11-12] MEDS: Acetaminophen 500 MG Tablet 1000 MG PO ×2 (11:43→20:09)
[2024-11-12] MEDS: Sodium Citrate/Citric Acid 30 ML UDC PO (14:20)
[2024-11-12] MEDS: Cefazolin 2 GM in Syringe IV (14:30)
--- NOTE | 2024-11-12 15:46 | FALS_PTH ---
PATIENT: ANTONIO AVILES LOC: [facility] U#:[id number] AGE/SX: 34/F ROOM: WP007 RE11/12/[address]: Dr. Harriet Maria MD : 1990 BED: 1 DIS: 11/13/2024 SPEC #: [id number] RECD: 11/12/24 15:53 STATUS: YVONNE FORMAN #: [id number] MARY ELLEN: 11/12/24 15:[address]: Harriet Maria DEPT: SURGICAL PATHOLOGY RECD BY: Misael Douglas ENTERED: 11/15/24 09:32 SP TYPE: FALL TUBES OTHR DR: No Primary Care Phys Tissues: Fallopian tube Procedures: Surgery Specimen Level II HEADER OPERATION: Repeat section PRE-OP DIAGNOSIS: Sterilization TISSUE SUBMITTED: Bilateral fallopian tubes - suture on right MICROSCOPIC DIAGNOSIS Bilateral fallopian tubes, salpingectomy: Bilateral fallopian tubes, no pathologic diagnosis. SJ: 11/16/2024 MICROSCOPIC DESCRIPTION Slides are reviewed. GROSS DESCRIPTION Received in fixative is one container labeled with the patient's name and designated bilateral fallopian tubes - suture in right tube. The specimen consists of bilateral fallopian tubes including fimbrial ends. Right fallopian tube measures 7.0 cm in length and 1.0 cm in diameter and left fallopian tube measures 4.5cm in length and 0.8cm in diameter. Sections reveal unremarkable cut surfaces. Admitted Attorneys sections are submitted in two cassettes: 1- right fallopian tube, 2- left fallopian tube. / JELANI: 11/15/2024 TC:4 CPT: 79704 x2
[2024-11-12 15:53] LABS: Pathology Specimen OB SEE PATHOLOGY REPORT
[2024-11-12] MEDS: Oxytocin 15 Units/NS 250ml 15 UNITS/250 ML IV.SOLN 83 UNITS IV (16:22)
[2024-11-12] MEDS: Ketorolac 30 MG/ML Syringe IV ×2 (16:44→22:35)
[2024-11-12] MEDS: Ondansetron 4 MG/2 ML Vial IV (16:45)
[2024-11-12] MEDS: 0.9% Saline Lock 10 ML Syringe IV (19:55)
[2024-11-12] MEDS: Lactated Ringers 1,000 ML 100 ML IV (21:29)
[2024-11-13] VITALS (8 sets, daily range): BP systolic 94–122; BP diastolic 63–70; PULSE 68–95; RESP 16; TEMP 36.4–36.7; O2SAT 97–100
--- NOTE | 2024-11-13 01:37 | OP.PCM_ITS ---
Assessment & Plan (1) Abnormal glucose affecting : COMMENT: passed 3 hour but elevated fasting (2) Varicose veins of both lower extremities: QUALIFIERS: Varicose vein complication: unspecified Qualified Code(s): I83.93 - Asymptomatic varicose veins of bilateral lower extremities COMMENT: below the knee (3) HPV test positive: COMMENT: PAP at NOB positive HPV, last pap 2019 nl, has had hx of HPV in past (4) Supervision of high-risk : QUALIFIERS: Trimester: second trimester Qualified Code(s): O09.92 - Supervision of high risk , unspecified, second trimester COMMENT: PRR, (one twin delivery), ESTUARDO 11/19/24, Janay Nesbitt & Silvino Conklin (5) : QUALIFIERS: Weeks of gestation: 38 weeks Qualified Code(s): Z3A.38 - 38 weeks gestation of COMMENT: discussed genetic & carrier testing, low risk NIPT (6) Hx of section: COMMENT: with twins plan RLTCS scheduled for 11/12 @ 12 with (7) History of twin in prior : (8) History of miscarriage, currently : COMMENT: early losses, one prior to 1st child and one after twins (9) delivery delivered: COMMENT: RLTCS BS virgen barroso (10) Status post bilateral salpingectomy: Maternal Data Information ESTUARDO Calculator Estimated Delivery Date Method Current WG Current Estimate 11/19/24 LMP (Certain) 39w 1d Final ESTUARDO Source: LMP Operative Report (OB) Cecarean Details Procedure Type: low transverse (and bilateral salpingectomy) Date of Procedure: 11/12/24 Procedure Start Time: 14:57 Procedure Stop Time: 15:34 Pre-Operative Diagnosis: Repeat Elective and Desires elective sterilization Post-Operative Diagnosis: Same as Pre-operative diagnosis Classification: Scheduled Type of Anesthesia: Spinal Special Medications: none Antibiotic Given: Ancef 2 grams IV x1 Drain: Matthew to straight drain Estimated Blood Loss: 800 Fluids Replaced: crystalloid Findings Description of surgery: Spinal anesthesia was placed without difficulty. Matthew catheter was placed. The patient was placed in the dorsal supine position with leftward tilt. Patient was prepped and draped in the normal sterile fashion. Pfannenstiel skin incision was made with the scalpel and carried through to the underlying layer of fascia with the scalpel. Fascia was nicked in the midline and the incision extended laterally. The rectus bellies were dissected off superiorly and inferiorly with out complication both sharply and bluntly. The peritoneum was entered digitally. The incision was stretched and a low transverse uterine incision was made with the scalpel. The infant's head was delivered atraumatically followed by the anterior and posterior shoulders without complication the rest of the delivered. The cord was clamped and cut and the was handed off to awaiting nurse. The placenta was delivered spontaneously immediately following and was noted to be intact and have a three- vessel cord. The uterus was exteriorized cleared of all clots and debris, and the incision was closed in a single layer closure using #1 Monocryl. hemoblast placed over the incision for a mild raw appearance and hemostasis noted. The ovaries and fallopian tubes were noted to be within normal limits. Patient had desired sterilization and was counseled preoperatively regarding irreversibility and permanency. Therefore bilateral fallopian tubes were elevated and transected across using a LigaSure device starting proximally to distally without complication the entire fallopian tubes were removed. The uterus was returned to the maternal abdomen and gutters were cleared of all clots and debris. The peritoneum was unable to be closed due to being far apart and thickened from scarring, but the left side was tretaed with the bovie and hemoblast for hemostasis along the muscle. Gloves were changed prior to fascial closure. Fascia was closed with 0 PDS in a running fashion. Subcutaneous tissue was copiously irrigated and the skin was closed with 3-0 Monocryl in a subcuticular fashion. Mepilex dressing was applied without complication. Patient was taken to recovery in stable condition. Surgical findings: nl uterus tubes ovaries thickened peritoneum Presentation: Vertex Amniotic Membrane Rupture Type: Artificial Amniotic Fluid Description: Clear Specimen collected: Yes Description of specimen(s) removed: placenta and baby Cord Vessel Description: 3 Vessels Delayed Cord Clamping: Yes Appliance Service Technician lead printer: Yes Pension Consultant: Minda Hawk Tasks completed by first aid instructor: Opening & closing, Retracting and Other (assisting in delivery of the infant) Additional surgeon assistant?: No Complications Complications: No Admit VTE Documentation VTE Present on Admission: No VTE Mechan Device Prophylaxis: SCD's Procedures Urinary/Genital [id number]: [id number] Delivery [facility]
--- NOTE | 2024-11-13 01:42 | PCM.DC ---
Discharge Instructions Diet Discharge Diet: No restrictions DC O2, CPAP, BIPAP needs Home O2 Discharge instructions: No Dressing / Incision Discharge Activity: May Not Drive (for 2 weeks or while taking narcotic pain medications.), May Shower and May Take a Tub Bath (in 7 days) May shower in (days): 0 May resume sexual activity in: 4-6 weeks Weight Bearing Status: Full weight bearing Lifting Restrictions: 20 pounds Dressing / Incision Call your doctor if your incision/area has: Continuous Slow Oozing, Sudden Increased Bleeding, Increased Pain/ Swelling, Increased Redness and Foul Smelling Discharge Call your doctor if you observe: Fever of 101 or Higher and Using more than 1 pad per hour (for 2 hours) Suture Line Care: Avoid Pulling/Pushing and Avoid Pinching/Bending Cleanse incision/area with: Soap & Water and Keep Dressing Clean & Dry Follow Up Care Please Follow Up With: Harriet Maria MD When: Call [phone] to make an appointment for an incision check in 1-2 weeks. Test Results: Test results from this visit will be discussed in further detail at your follow-up appointment, if applicable. Discharge Plan Admission Admit Date/Time: 11/12/24 10:31 Attending Provider: Harriet Maria Primary Care Provider: Care Physician,Loren Primary Discharge Orders/Prescriptions Prescriptions: No Action PNV-Collins 28-1-300 mg capsule PO ondansetron 4 mg tablet,disintegrating 4 mg PO Q4H PRN (Reason: nausea and vomiting) Qty: 60 2RF Referrals / Follow Up: Care Physician,No Primary [Primary Care Provider] - Disposition Disposition (needs filled in before D/C Order can be placed): Home, Self Care
[2024-11-13] MEDS: Acetaminophen 500 MG Tablet 1000 MG PO ×3 (02:08→14:17)
[2024-11-13] MEDS: Nalbuphine 10 MG/ML Ampul 5 MG IV (02:20)
[2024-11-13] MEDS: 0.9% Saline Lock 10 ML Syringe IV (02:21)
[2024-11-13] MEDS: Enoxaparin 40 MG/0.4 ML Syringe SC (02:34)
[2024-11-13 06:04] LABS: Hematocrit 31.8 % (37-47); Hemoglobin 10.3 g/dL (12.0-15.0); Mean Corp Hgb Conc 32.4 g/dL (32-36); Mean Corpuscular Hgb 31.2 pg (27.0-32.0); Mean Corpuscular Volume 96.4 fL (81-99); Mean Platelet Vol. 9.5 fl (6.2-12.0); Platelet Count 196 K/mm3 (150-450); RBC Distribution Width CV 13.4 % (11.6-14.6); RBC Distribution Width SD 47.6 fl (35.1-43.9); White Blood Count 16.9 K/mm3 (4.4-11.0)
[2024-11-13] MEDS: Naproxen 500 MG Tablet PO ×2 (06:42→14:17)
--- NOTE | 2024-11-13 09:53 | PN.OBGYN_ITS ---
Subjective Subjective Patient doing well without complaints. Tolerating PO. Ambulating and voiding without difficulty. Feeding well. Denies chest pain, shortness of breath, calf pain/swelling, fevers, chills, lightheadedness. Objective Data Objective Data Vital Signs: Vital Signs Temp Pulse Resp BP Pulse Ox O2 Del Method 97.7 F L 68 16 106/66 98 Room Air 11/13/24 08:08 11/13/24 08:08 11/13/24 08:08 11/13/24 08:08 11/13/24 08:08 11/13/24 08:08 Oxygen Delivery Method Room Air Weight: 225 lb Body Mass Index (BMI) 36.3 Intake & Output: Intake and Output for Last 24 Hours 11/11/24 11/12/24 11/13/24 23:59 23:59 23:59 Intake Total 1669.6 / 1669.6 523.33 / 523.33 Output Total 1000 / 1000 900 / 900 Balance 669.6 / 669.6 -376.67 / -376.67 Lab / Micro Data 11/13/24 05:55 Labs: Laboratory Results - last 24 hr 11/12/24 10:45: WBC 12.3 H, RBC 3.65 L, Hgb 11.2 L, Hct 34.4 L, MCV 94.2, MCH 30.7, MCHC 32.6, RDW Std Deviation 46.1 H, RDW Coeff of Mitchell 13.4, Plt Count 209, MPV 9.7, Immature Gran % (Auto) 0.800, Neut % (Auto) 79.1 H, Lymph % (Auto) 13.6 L, Ward % (Auto) 5.6, Eos % (Auto) 0.7, Baso % (Auto) 0.2, Absolute Neuts (auto) 9.7 H, Absolute Lymphs (auto) 1.67, Nucleated RBC % 0, Syphilis Total Ab Non- reactive, Blood Type A POSITIVE, Antibody Screen NEGATIVE 11/13/24 05:55: WBC 16.9 H, RBC 3.30 L, Hgb 10.3 L, Hct 31.8 L, MCV 96.4, MCH 31.2, MCHC 32.4, RDW Std Deviation 47.6 H, RDW Coeff of Mitchell 13.4, Plt Count 196, MPV 9.5 Physical Exam Const alert and no apparent distress Eyes PERRL Neck full ROM Lymph Lymphatic: no lymphadenopathy noted Chest inspection of chest normal Resp normal respiratory effort, normal air movement and no use of accessory muscles Cardio regular rate and regular rhythm GI normal to inspection, nondistended, normoactive bowel sounds Uterus Palpation: uterus fundus firm (below u) Extremity normal to inspection, full ROM and no pedal edema Skin no rashes or lesions noted Psych mental status grossly normal Assessment & Plan (1) delivery delivered: COMMENT: RLTCS BS JONES barroso (2) Status post bilateral salpingectomy: (3) Varicose veins of both lower extremities: QUALIFIERS: Varicose vein complication: unspecified Qualified Code(s): I83.93 - Asymptomatic varicose veins of bilateral lower extremities COMMENT: below the knee PLAN: Plan s/p LTCS PPD # 1 1. routine post care 2. breast feeding- support given 3. rh positive 4. rubella immune
[2024-11-13] MEDS: Senna/Docusate Sodium 1 Tablet PO (10:06)
== END 2024-11-13 17:00 | disposition home or self-care (01) | DRG 785 ==
PROVIDERS: Admitting Provider Obstetrics & Gynecology; Referring Provider Obstetrics & Gynecology; Visit Provider Obstetrics & Gynecology
PROC: (CPT 59514; principal; 2024-11-12 11:45)
DX: O87.4 Varicose veins of lower extremity in the puerperium (principal); O34.219 Maternal care for unspecified type scar from previous cesarean delivery; O99.814 Abnormal glucose complicating childbirth; Z37.0 Single live birth; Z3A.38 38 weeks gestation of pregnancy; Z87.59 Personal history of other complications of pregnancy, childbirth and the puerperium; Z30.2 Encounter for sterilization
CPT/HCPCS: 59025; 59050; 85025; 85027; 86780; 86850; 86900; 86901; 88302; 99221; A4216; G0378; J2405

== ENCOUNTER → 2024-12-24 | Outpatient (CLI) | payer OTHER, SELFPAY ==
[2024-12-30 10:07] LABS: HPV APTIMA, High Risk Negative (Negative)
== END | disposition home or self-care (01) ==
PROVIDERS: Referring Provider Obstetrics & Gynecology; Visit Provider Obstetrics & Gynecology
DX: Z12.4 Encounter for screening for malignant neoplasm of cervix (principal)
CPT/HCPCS: 87624; 88175; G0145